=== PATIENT | female | born 1965 | race Caucasian/White ===

== ENCOUNTER 2016-10-14 09:47 | Emergency (ER) | payer OTHER ==
--- NOTE | 2016-10-14 12:45 | ED NURSING NOTES ---
Clinical Report - Nurses [facility] [address] [place] [address] 10/14/2016 9:48 [id number] TRIAGE Triage time 09:50. Acuity: LEVEL 3. Chief Complaint: CHEST DISCOMFORT and ("vibrations in my chest that go down to my abdomen" and palpations.). Alert. No acute distress. SEPSIS SCREEN: Sepsis Screen. Negative (no infection suspected/documented). FABIAN COMA SCORE: [place] Coma Scale: 15- eyes open spontaneously (4); best verbal response- oriented x 4 (5); best motor response- obeys commands (6). --10:29 Kathryn Birmingham R.N. 09:50 10/14/16. BP: 183/88. HR: 93. RR: 16. O2 saturation: 100%. Temp: 97.8 F. Pain level now 0/10. --10:29 Kathryn Birmingham R.N. Weight: 72.5 kg stated. Height/Length: 61 inches Per Patient. BMI: 30.2. --10:29 Kathryn Birmingham R.N. Medications None. --10:28 Kathryn Birmingham R.N. Allergies Cipro. --10:28 Kathryn Birmingham R.N. Sulfa Antibiotics. --10:28 Kathryn Birmingham R.N. Bactrim. --10:28 Kathryn Birmingham R.N. History Arrived by EMS. Historian: patient. Unaccompanied. Primary physician (Dr. Diaz). This is a recurrent problem and onset was gradual. (a couple weeks the "vibrations started."). ( Pt. is very tearful during triage. She states, "Dr. Diaz said I have been having near syncopy which started when I was with my son."Pt. said her son is 35 y.o. Pt. was concerned today because she was feeling weak and dizzy. Pt. continues to discuss she is under a lot of stress lately.). Treatment HEAD CASHIER: None. PAST MEDICAL HX: Immunizations: up-to-date. SOCIAL HX: Never smoker. Occasional alcohol use. No drug use. ABUSE ASSESSMENT: Abuse assessment: The patient was asked "Do you feel safe in your home?" and "Has anyone hurt you or threatened to hurt you?". No report of abuse. SELF HARM ASSESSMENT: A self harm assessment was performed. The patient answered "no" to the question "Do you have thoughts of harming or killing yourself?" and "Have you recently had thoughts about harming or killing others?". NUTRITIONAL RISK ASSESSMENT: The nutritional risk assessment revealed no deficiencies. FUNCTIONAL ASSESSMENT: Functional assessment: no impairments noted. LEARNING NEEDS ASSESSMENT: The learning needs assessment revealed no barriers. --10:29 Kathryn Birmingham R.N. PROBLEMS: Panic Attack. Anxiety Reaction. Near Syncope. Headache. Migraine Headache. --10:28 Kathryn Birmingham R.N. Interventions ID band on patient. Transported via stretcher. --10:29 Kathryn Birmingham R.N. PHYSICAL ASSESSMENT 09:50. To room via stretcher. GENERAL / NEURO / PSYCH: Alert. Oriented X 4. (pt. is very tearful and appears anxious.). HEENT: Mucous membranes are pink. RESPIRATORY: Respirations not labored. CVS: Pulses within normal limits. Capillary refill less than 2 seconds. GI / : Abdomen soft and nontender. EXTREMITIES: No lower extremity edema. SKIN: Skin is warm and dry. Skin is non-tender. --10:11 Kathryn Birmingham R.N. NURSING PROGRESS NOTES 09:50. Pulse oximeter placed on patient; cardiac care nurse- Lead II; monitor alarms on. Patient gowned. Head of bed elevated. Two patient identifiers checked. Call light placed in reach. Side rails up x 2. Bed placed in lowest position. Brakes of bed on. Patient ready for evaluation- chart flagged. --10:12 Kathryn Birmingham R.N. 09:50 10/14/2016 Site #1 started via IV in the right antecubital space with an 20g angiocath, with aseptic technique and good blood return; one attempt. Blood drawn: rainbow set. Labeled in the presence of the patient and sent to the lab. Saline lock flushed with 10 mL saline. --10:18 Kathryn Birmingham R.N. 10:19 10/14/2016 Lorazepam (LORazepam) IVP 0.5 mg given over 2 minute(s) via site #1. Allergies verified, confirmed 5 rights and sedative warning given to the patient. IV patency established. IV site checked: no pain, redness, or swelling. IV flushed thoroughly pre- and post-medication administration. --10:21 Kathryn Birmingham R.N. 11:41 10/14/16. BP: 124/75. HR: 81. RR: 16. O2 saturation: 100%. --11:41 Kathryn Birmingham R.N. 12:24 10/14/16. Patient ID band checked for patient name: patient confirmed. Instructions provided to collect clean catch urine and patient verbalized understanding. Clean catch urine collected with return of yellow-colored clear urine; sample sent to lab for urinalysis and culture. Specimen labeled in the presence of the patient. --12:24 Anny Martin R.N. 12:26 10/14/16. BP: 136/87. HR: 79. RR: 18. O2 saturation: 99% on room air. --12:26 Anny Martin R.N. DISPOSITION / DISCHARGE 13:38 10/14/2016 Site #1 removed upon discharge. Catheter intact. Manual pressure and bandaid applied. --13:38 Kathryn Birmingham R.N. 13:37 10/14/16. BP: 125/77. HR: 74. RR: 16. O2 saturation: 100%. Temp: 98.3 F. Pain level now 06/20. --13:38 Kathryn Birmingham R.N. 13:38. Condition at departure: stable. No learning barriers present. Discharge instructions provided and reviewed with the patient. Reviewed referral to family practice for followup. Patient verbalized understanding. Written instructions provided in Afghan. The patient was discharged home and accompanied by family. She left the Emergency Department ambulatory and via private vehicle. Family member driving. Medication list reviewed and validated. --13:38 Kathryn Birmingham R.N. Departure time: 13:38. --13:38 Kathryn Birmingham R.N. Locked/Released at 10/14/2016 15:28 by Kathryn Birmingham R.N.
--- NOTE | 2016-10-14 12:45 | ED NURSING NOTES ---
Clinical Report - Nurses [facility] [address] [place] [address] 10/14/2016 9:48 [id number] TRI[facility] Triage time 09:50. Acuity: LEVEL 3. Chief Complaint: CHEST DISCOMFORT and ("vibrations in my chest that go down to my abdomen" and palpations.). Alert. No acute distress. SEPSIS SCREEN: Sepsis Screen. Negative (no infection suspected/documented). FABIAN COMA SCORE: [place] Coma Scale: 15- eyes open spontaneously (4); best verbal response- oriented x 4 (5); best motor response- obeys commands (6). --10:29 Kathryn Birmingham R.N. 09:50 10/14/16. BP: 183/88. HR: 93. RR: 16. O2 saturation: 100%. Temp: 97.8 F. Pain level now 0/10. --10:29 Kathryn Birmingham R.N. Weight: 72.5 kg stated. Height/Length: 61 inches Per Patient. BMI: 30.2. --10:29 Kathryn Birmingham R.N. Medications None. --10:28 Kathryn Birmingham R.N. Allergies Cipro. --10:28 Kathryn Birmingham R.N. Sulfa Antibiotics. --10:28 Kathryn Birmingham R.N. Bactrim. --10:28 Kathryn Birmingham R.N. History Arrived by EMS. Historian: patient. Unaccompanied. Primary physician (Dr. Diaz). This is a recurrent problem and onset was gradual. (a couple weeks the "vibrations started."). ( Pt. is very tearful during triage. She states, "Dr. Diaz said I have been having near syncopy which started when I was with my son."Pt. said her son is 35 y.o. Pt. was concerned today because she was feeling weak and dizzy. Pt. continues to discuss she is under a lot of stress lately.). Treatment HOME APPLIANCE TECHNICIAN: None. PAST MEDICAL HX: Immunizations: up-to-date. SOCIAL HX: Never smoker. Occasional alcohol use. No drug use. ABUSE ASSESSMENT: Abuse assessment: The patient was asked "Do you feel safe in your home?" and "Has anyone hurt you or threatened to hurt you?". No report of abuse. SELF HARM ASSESSMENT: A self harm assessment was performed. The patient answered "no" to the question "Do you have thoughts of harming or killing yourself?" and "Have you recently had thoughts about harming or killing others?". NUTRITIONAL RISK ASSESSMENT: The nutritional risk assessment revealed no deficiencies. FUNCTIONAL ASSESSMENT: Functional assessment: no impairments noted. LEARNING NEEDS ASSESSMENT: The learning needs assessment revealed no barriers. --10:29 Kathryn Birmingham R.N. PROBLEMS: Panic Attack. Anxiety Reaction. Near Syncope. Headache. Migraine Headache. --10:28 Kathryn Birmingham R.N. Interventions ID band on patient. Transported via stretcher. --10:29 Kathryn Birmingham R.N. PHYSICAL ASSESSMENT 09:50. To room via stretcher. GENERAL / NEURO / PSYCH: Alert. Oriented X 4. (pt. is very tearful and appears anxious.). HEENT: Mucous membranes are pink. RESPIRATORY: Respirations not labored. CVS: Pulses within normal limits. Capillary refill less than 2 seconds. GI / : Abdomen soft and nontender. EXTREMITIES: No lower extremity edema. SKIN: Skin is warm and dry. Skin is non-tender. --10:11 Kathryn Birmingham R.N. NURSING PROGRESS NOTES 09:50. Pulse oximeter placed on patient; environmental monitoring technician- Lead II; monitor alarms on. Patient gowned. Head of bed elevated. Two patient identifiers checked. Call light placed in reach. Side rails up x 2. Bed placed in lowest position. Brakes of bed on. Patient ready for evaluation- chart flagged. --10:12 Kathryn Birmingham R.N. 09:50 10/14/2016 Site #1 started via IV in the right antecubital space with an 20g angiocath, with aseptic technique and good blood return; one attempt. Blood drawn: rainbow set. Labeled in the presence of the patient and sent to the lab. Saline lock flushed with 10 mL saline. --10:18 Kathryn Birmingham R.N. 10:19 10/14/2016 Lorazepam (LORazepam) IVP 0.5 mg given over 2 minute(s) via site #1. Allergies verified, confirmed 5 rights and sedative warning given to the patient. IV patency established. IV site checked: no pain, redness, or swelling. IV flushed thoroughly pre- and post-medication administration. --10:21 Kathryn Birmingham R.N. 11:41 10/14/16. BP: 124/75. HR: 81. RR: 16. O2 saturation: 100%. --11:41 Kathryn Birmingham R.N. 12:24 10/14/16. Patient ID band checked for patient name: patient confirmed. Instructions provided to collect clean catch urine and patient verbalized understanding. Clean catch urine collected with return of yellow-colored clear urine; sample sent to lab for urinalysis and culture. Specimen labeled in the presence of the patient. --12:24 Anny Martin R.N. 12:26 10/14/16. BP: 136/87. HR: 79. RR: 18. O2 saturation: 99% on room air. --12:26 Anny Martin R.N. DISPOSITION / DISCHARGE 13:38 10/14/2016 Site #1 removed upon discharge. Catheter intact. Manual pressure and bandaid applied. --13:38 Kathryn Birmingham R.N. 13:37 10/14/16. BP: 125/77. HR: 74. RR: 16. O2 saturation: 100%. Temp: 98.3 F. Pain level now 06/20. --13:38 Kathryn Birmingham R.N. 13:38. Condition at departure: stable. No learning barriers present. Discharge instructions provided and reviewed with the patient. Reviewed referral to family practice for followup. Patient verbalized understanding. Written instructions provided in Polish. The patient was discharged home and accompanied by family. She left the Emergency Department ambulatory and via private vehicle. Family member driving. Medication list reviewed and validated. --13:38 Kathryn Birmingham R.N. Departure time: 13:38. --13:38 Kathryn Birmingham R.N. Locked/Released at 10/14/2016 15:28 by Kathryn Birmingham R.N.
--- NOTE | 2016-10-14 12:45 | ED CLINICAL REPORT ---
Clinical Report - Physicians/Mid Levels [facility] [address] [place] [address] 10/14/2016 9:48 Patient: JAMAL GUERIN Time Seen: 09:54. Arrived- By private vehicle. Historian- patient. HISTORY OF PRESENT ILLNESS Chief Complaint: WEAKNESS. At its maximum, severity described as mild. When seen in the E.D., it was gone. (A strange weak all over feeling, cold and clammy. Blood pressure spikes - 160 Several weeks - randomly a a pulsation through abdomen for 2 heart beats. Vibration - for a long time. years, high frequency - in the the chest). Onset during emotional upset. It is described as located in the central chest area. No nausea, vomiting, difficulty breathing or diaphoresis. Similar symptoms previously: Many times. Recent medical care: The patient was seen recently by a health care provider. ( 1 month - similar. Beta Blockers didn't take.). REVIEW OF SYSTEMS No fever, chills, cough, pedal edema or calf pain. No abdominal pain, black stools, difficulty with urination, skin rash or joint pain. No bloody stools. PAST HISTORY PCP: Emily Ops: None Hosp: - pain fibroids Illness: Neg. Environmental allergies. PROBLEMS: Panic Attack. Anxiety Reaction. Near Syncope. Headache. Migraine Headache. SOCIAL HISTORY Never smoker. Marital stress - severe. ADDITIONAL NOTES The nursing notes have been reviewed. PHYSICAL EXAM Appearance: Alert. Anxious. Patient in moderate distress. Eyes: Pupils equal, round and reactive to light. Eyes normal inspection. ENT: Pharynx normal. Neck: Normal inspection. Neck supple. CVS: Normal heart rate and rhythm. Heart sounds normal. Respiratory: No respiratory distress. Breath sounds normal. Chest nontender. Abdomen: Soft and nontender. Bowel sounds normal. Back: Normal external inspection. Skin: Skin warm. Normal skin color. No rash. Extremities: Extremities exhibit normal ROM. Neuro: Oriented X 3. No motor deficit. No sensory deficit. LABS, X-RAYS, AND EKG EKG: Normal EKG. Laboratory Tests: CBC w Diff: (WILMA: 10/14/2016 09:50) ( [facility]14[facility] 10:30) Final results Test Result Flag Units (Reference) WHITE BLOOD COUNT 9.0 K/uL (4.5-11.5) RED BLOOD COUNT 4.78 M/uL (4.00-5.20) HEMOGLOBIN 14.6 gm/dL (12.0-16.0) HEMATOCRIT 43.3 % (36.0-46.0) MEAN CELL VOLUME 91 fL (80-100) MEAN CORPUSCULAR HGB 31 pg (26-34) MEAN CORPUSCULAR HGB CONC 34 g/dL (31-37) RED CELL DISTRIBUTION WIDTH 14.0 % (11.6-14.8) PLATELET COUNT 292 K/uL (150-400) NEUTROPHIL % 54.3 % (50-75) LYMPH % 34.3 % (25-40) MONO % 7.8 % (3-14) EOSINOPHIL % 2.7 % (0-4) BASOPHIL % 0.9 % (0-2) CHEM 13 PANEL: (WILMA: 10/14/2016 09:50) ( [facility] 10/14/2016 10:39) Final results Test Result Flag Units (Reference) GLUCOSE 101 mg/dL (70-110) BUN 17 mg/dL (7-18) CREATININE 0.8 mg/dL (0.6-1.3) Estimated GFR >60 mL/min Estimated GFR- >60 mL/min Note: Persistent reduction over 3 months in eGFR<60 mL/min/1.73 m2 defines CKD. Patients with eGFR values>=60 mL/min/1.73 m2 may also have CKD if evidence ofpersistent proteinuria. Additional information may be foundat www.kidney.org. SODIUM 142 mmol/L (136-145) POTASSIUM 3.6 mmol/L (3.5-5.1) CHLORIDE 103 mmol/L (98-107) CARBON DIOXIDE 25 mmol/L (21-32) CALCIUM 8.9 mg/dL (8.5-10.1) TOTAL PROTEIN 7.7 g/dL (6.4-8.2) ALBUMIN 4.0 g/dL (3.3-5.0) BILIRUBIN, TOTAL 0.9 mg/dL (0.0-1.0) ALKALINE PHOSPHATASE 89 U/L (46-116) AST (SGOT) 21 U/L (15-37) ALT (SGPT) 28 U/L (12-78) MAGNESIUM 2.2 mg/dL (1.8-2.4) CPK 110 U/L (24-260) TROPONIN I 0.07 ng/mL (0.00-1.5) TROPONIN REFERENCE RANGE:<0.1 NEGATIVE0.1-1.5 INDETERMINANT>1.5 POSITIVE . PROGRESS AND PROCEDURES Course of Care: 12:21 10/14/16. Labs are negative 12:36 10/14/16. Interview again Ms Guerin has severe anxiety along with chest and abdominal symptoms which do not appear to be life threatening. She has longstanding marital conflict which causes her great anguish. I think the most productive way forward would be to address the anxiety and depression along with the marital distress and then see what other symptoms remain. Disposition: Discharged. Condition: stable. CLINICAL IMPRESSION Anxiety reaction. WEAKNESS ABDOMINAL PAIN. INSTRUCTIONS (I DO NOT THINK YOU ARE HAVING A SERIOUS PROBLEM IN YOUR CHEST AND ABDOMEN. YOUR STRESS IS CONSIDERABLE. WORK WITH DR DOMINGUEZ ABOUT ANXIETY AND DEPRESSION.). Follow-up: Follow up with your doctor. Understanding of the discharge instructions verbalized by patient. (Electronically signed by Lj Winkler MD 10/17/2016 7:32)
--- NOTE | 2016-10-14 12:45 | ED ORDER SUMMARY ---
..... Patient: JAMAL COLLINS OrderSheet [facility] VisitID: [id number] [address] [place] [address] 51y, F Registration Date/Time: 10/14/2016 ORDER SHEET Weight: 72.5 kg (stated) Allergies: Cipro, Sulfa Antibiotics, Bactrim GENERAL ORDERS: Bulk Clerk (Continuous) (10:10/14/2016 Herbert TORRE) (10:13 Jorge R.N.) Cardiac Panel Stat (10:10/14/2016 Herbert TORRE) (Ack 10:29 Luis) (10:35 Jorge R.N.) EKG - ER Stat (10:10/14/2016 Herbert TORRE) (10:12 Jorge R.N.) Pulse oximeter (10:10/14/2016 Herbert TORRE) (10:12 Jorge R.N.) Oxygen (2 L/min) (NC) (10:10/14/2016 Herbert TORRE) (10:12 Jorge R.N.) MEDICATION ORDERS: IV FLUIDS: LORazepam IV 0.5 mg (NOW) (10:11 10/14/2016 Herbert TORRE) (Ack 10:12 Heavenitz R.N.) (10:21 Jorge R.N.) IV Saline Lock (10:10/14/2016 Herbert TORRE) (Ack 10:12 Jorge R.N.) (10:18 Heavenitz R.N.) ORDER SHEET NOTES: [Electronically signed by Kathryn Birmingham R.N. (15:28 10/14/2016)] [Electronically signed by Lj Winkler MD (07:32 10/17/2016)] [Electronically locked/signed by Kathryn Birmingham R.N. (15:28 10/14/2016)]
--- NOTE | 2016-10-14 12:45 | ED ORDER SUMMARY ---
..... Patient: JAMAL COLLINS OrderSheet [facility] VisitID: [id number] [address] [place] [address] 51y, F Registration Date/Time: 10/14/2016 ORDER SHEET Weight: 72.5 kg (stated) Allergies: Cipro, Sulfa Antibiotics, Bactrim GENERAL ORDERS: Structurer (Continuous) (10:10/14/2016 Herbert TORRE) (10:13 Jorge R.N.) Cardiac Panel Stat (10:10/14/2016 Herbert TORRE) (Ack 10:29 Luis) (10:35 Jorge R.N.) EKG - ER Stat (10:10/14/2016 Herbert TORRE) (10:12 Jorge R.N.) Pulse oximeter (10:10/14/2016 Herbert TORRE) (10:12 Jorge R.N.) Oxygen (2 L/min) (NC) (10:10/14/2016 Herbert TORRE) (10:12 Jorge R.N.) MEDICATION ORDERS: IV FLUIDS: LORazepam IV 0.5 mg (NOW) (10:11 10/14/2016 Herbert TORRE) (Ack 10:12 Heavenitz R.N.) (10:21 Jorge R.N.) IV Saline Lock (10:10/14/2016 Herbert TORRE) (Ack 10:12 Jorge R.N.) (10:18 Heavenitz R.N.) ORDER SHEET NOTES: [Electronically signed by Kathryn Birmingham R.N. (15:28 10/14/2016)] [Electronically signed by Lj Winkler MD (07:32 10/17/2016)] [Electronically locked/signed by Kathryn Birmingham R.N. (15:28 10/14/2016)]
--- NOTE | 2016-10-17 07:32 | ED DISCHARGE INSTRUCTIONS ---
Patient: JAMAL COLLINS General Instructions [facility] VisitID: [id number] [address] [place] [address] 51y, F Registration Date/Time: 10/14/2016 Anxiety reaction. WEAKNESS ABDOMINAL PAIN. INSTRUCTIONS (I DO NOT THINK YOU ARE HAVING A SERIOUS PROBLEM IN YOUR CHEST AND ABDOMEN. YOUR STRESS IS CONSIDERABLE. WORK WITH DR DOMINGUEZ ABOUT ANXIETY AND DEPRESSION.). Follow-up: Follow up with your doctor. Understanding of the discharge instructions verbalized by patient. ADDITIONAL INFORMATION Stress Reaction Anxiety is the feeling we all get when we think something bad might happen. It is a normal response to stress and usually causes only a mild reaction. When anxiety becomes more severe, emotions may interfere with daily life. In some cases, you may not even be aware of what it is youre anxious about! During an anxiety reaction, you may feel like you are helpless, nervous, depressed or irritable. Your body may show signs of anxiety in many ways. You may experience dry mouth, shakiness, dizziness, weakness, trouble breathing, chest pressure, headache, nausea, diarrhea, tiredness, inability to sleep or sexual problems. Home Care: 1) Try to locate the sources of stress in your life. They may not be obvious! These may include: -- Daily hassles of life which pile up (traffic jams, missed appointments, car troubles, etc.) -- Major life changes, both good (new baby, job promotion) and bad (loss of job, loss of loved one) -- Overload: feeling that you have too many responsibilities and can't take care of all of them at once -- Feeling helpless, feeling that your problems are beyond what youre able to solve 2) Notice how your body reacts to stress. Learn to listen to your body signals. This will help you take action before the stress becomes severe. 3) When you can, do something about the source of your stress. (Avoid hassles, limit the amount of change that happens in your life at one time and take a break when you feel overloaded). 4) Unfortunately, many stressful situations cannot be avoided. It is necessary to learn HOW TO MANAGE STRESS better. There are many proven methods that will reduce your anxiety. These include simple things like exercise, good nutrition and adequate rest. Also, there are certain techniques that are helpful: relaxation and breathing exercises, visualization, biofeedback and meditation. For more information about this, consult your doctor or go to a local bookstore and review the many books and tapes available on this subject. Follow Up If you feel that your anxiety is not responding to self-help measures, contact your doctor or make an appointment with a counselor. Get Prompt Medical Attention if any of the following occur: -- Your symptoms get worse -- Chest pain or trouble breathing -- Severe headache not relieved by rest and mild pain reliever -- Rapid or irregular heartbeat, fainting You have been given the following additional information: Anxiety Reaction (Electronically signed by Lj Winkler MD 10/17/2016 7:32)
--- NOTE | 2016-10-17 07:32 | ED MAR SUMMARY ---
..... Medication Administration Record [facility] [address] [place] [address] Patient: JAMAL COLLINS Visit ID: [id number] 51y, F Weight: 72.5 kg Height/Length: 61 in BMI: 30.2 ALLERGIES: Bactrim, Sulfa Antibiotics, Cipro Given 10:19 10/14/2016 Kathryn Birmingham R.N. Medication Administered: LORAZEPAM [IVP] (LORAZEPAM), Dose: 0.5 mg IVP over 2 minute(s), Site: #1 right AC. Medication Ordered: LORazepam IV 0.5 mg (NOW).
--- NOTE | 2016-10-17 07:32 | ED MED RECONCILIATION SUMMARY ---
Patient: JAMAL COLLINS Medication Reconciliation Report [facility] VisitID: [id number] [address] [place] [address] 51y, F Registration Date/Time: 10/14/2016 Weight: 72.5 kg Height/Length: 61 in. BMI: 30.2 ALLERGIES: Bactrim, Cipro, Sulfa Antibiotics The patient's Home Medications are listed below: NONE. The source(s) of the original Home Medication information: Not obtained. The following Medications were given to the patient in the Emergency Department: Lorazepam [IVP] IVP 0.5 mg, administered: 10/14/2016 10:19:00 AM The following Medications were prescribed to the patient: None.
--- NOTE | 2016-10-17 07:32 | ED MAR SUMMARY ---
..... Medication Administration Record [facility] [address] [place] [address] Patient: JAMAL COLLINS Visit ID: [id number] 51y, F Weight: 72.5 kg Height/Length: 61 in BMI: 30.2 ALLERGIES: Bactrim, Sulfa Antibiotics, Cipro Given 10:19 10/14/2016 Kathryn Birmingham R.N. Medication Administered: LORAZEPAM [IVP] (LORAZEPAM), Dose: 0.5 mg IVP over 2 minute(s), Site: #1 right AC. Medication Ordered: LORazepam IV 0.5 mg (NOW).
--- NOTE | 2016-10-17 07:32 | ED MED RECONCILIATION SUMMARY ---
Patient: JAMAL COLLINS Medication Reconciliation Report [facility] VisitID: [id number] [address] [place] [address] 51y, F Registration Date/Time: 10/14/2016 Weight: 72.5 kg Height/Length: 61 in. BMI: 30.2 ALLERGIES: Bactrim, Cipro, Sulfa Antibiotics The patient's Home Medications are listed below: NONE. The source(s) of the original Home Medication information: Not obtained. The following Medications were given to the patient in the Emergency Department: Lorazepam [IVP] IVP 0.5 mg, administered: 10/14/2016 10:19:00 AM The following Medications were prescribed to the patient: None.
== END 2016-10-14 13:38 | disposition home or self-care (01) ==
LOC: ED SRH 09:47
DX: F41.1 Generalized anxiety disorder (principal); R10.9 Unspecified abdominal pain; R53.1 Weakness
CPT/HCPCS: 90100; 90616; 92610; 92720; 95059

== ENCOUNTER 2016-10-22 19:41 | Emergency (ER) | payer OTHER ==
--- NOTE | 2016-10-22 20:22 | DIAGNOSTIC IMAGING REPORT ---
PROCEDURE: XR CHEST 1 VIEW INDICATION: Compared to chest x-ray on 10/16/2013. TECHNIQUE: Portable AP view (201 5 hours). COMPARISON: None. FINDINGS: Allowing for overlying wires and electrodes, lungs are clear. Heart and mediastinum are normal. Thorax is normal. IMPRESSION: 1. Negative chest.
--- NOTE | 2016-10-22 23:40 | ED CLINICAL REPORT ---
Clinical Report - Physicians/Mid Levels [facility] [address] [place] [address] 10/22/2016 19:41 Patient: JAMAL COLLINS Time Seen: 20:02 Oct 22 2016. Arrived- By private vehicle. Historian- patient. HISTORY OF PRESENT ILLNESS Chief Complaint: PALPITATIONS and CHEST DISCOMFORT. It is described as . she complains of dizziness and weakness. Modifying factors. Not worsened by anything. Not relieved by anything. 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 History of caffeine use prior to onset. The patient has had central chest pain described as lasting seconds and associated with diaphoresis. She has had chest discomfort. Similar symptoms previously: Several times, as bad (on and off for 2 weeks.). Recent medical care: Not recently seen/assessed. REVIEW OF SYSTEMS No fever, chills, cough, orthopnea or calf pain. No enlarged lymph nodes, sore throat or nausea. She has had moderate abdominal pain (occasional epigastric with dysphagia 2 weeks ago.). The pain is described as located in the epigastrium. All systems otherwise negative, except as recorded above. PAST HISTORY Panic Attack. Anxiety Reaction. Near Syncope. Headache. Migraine Headache. Gastroesophageal reflux. Additional Surgeries: no known surgeries. Medications: Vitamin c Oral. Vitamin D-Vitamin K Oral. Vitamin E Complete Oral. Multivitamin Oral. Co Q 10 Oral. Allergies: Cipro. ("messed up my tendons" ) Sulfa Antibiotics. (rash). SOCIAL HISTORY Never smoker. Occasional alcohol use. No drug use. ADDITIONAL NOTES The nursing notes have been reviewed. PHYSICAL EXAM Vital Signs: 10/22/2016 19:45 BP: 178/91. HR: 100. RR: 22. O2 saturation: 100%. Temp: 98.1 F. Pain level now: 0/10. Appearance: Alert. Anxious. (non-toxic.). Eyes: Eyes normal inspection. ENT: Pharynx normal. Neck: Normal inspection. Neck supple. No JVD. CVS: Normal heart rate and rhythm. Heart sounds normal. Pulses normal. No cardiac murmur. Respiratory: No respiratory distress. Breath sounds normal. Chest nontender. Abdomen: Soft and nontender. Bowel sounds normal. Back: Normal external inspection. Skin: Skin warm. Normal skin color. No rash. Extremities: Extremities exhibit normal ROM. No calf tenderness. No lower extremity edema. Neuro: Oriented X 3. No motor deficit. No sensory deficit. Reflexes normal. LABS, X-RAYS, AND EKG EKG: No acute process. No acute ischemia. Normal EKG. Normal sinus rhythm. Rate: 87. Normal P waves. Normal GABRIEL. Normal QRS complex. Normal axis. Normal ST and T waves, QT and QTc. Prior EKG unavailable. The study has been interpreted contemporaneously by me. The study has been independently viewed by me. The EKG appears to be a good tracing. Chest X-ray: (PROCEDURE: XR CHEST 1 VIEW INDICATION: Compared to chest x-ray on 10/16/2013. TECHNIQUE: Portable AP view (201 5 hours). COMPARISON: None. FINDINGS: Allowing for overlying wires and electrodes, lungs are clear. Heart and mediastinum are normal. Thorax is normal. IMPRESSION: 1. Negative chest.). Views: AP (portable). The X-rays were independently viewed by me and interpreted by the radiologist. The X-rays were discussed with the radiologist (via pacs). Laboratory Tests: CBC w Diff: (WILMA: 10/22/2016 20:00) ( MsgRcvd 10/22/2016 20:29) Final results Test Result Flag Units (Reference) WHITE BLOOD COUNT 12.6 H K/uL (4.5-11.5) RED BLOOD COUNT 4.81 M/uL (4.00-5.20) HEMOGLOBIN 14.6 gm/dL (12.0-16.0) HEMATOCRIT 43.7 % (36.0-46.0) MEAN CELL VOLUME 91 fL (80-100) MEAN CORPUSCULAR HGB 30 pg (26-34) MEAN CORPUSCULAR HGB CONC 33 g/dL (31-37) RED CELL DISTRIBUTION WIDTH 13.8 % (11.6-14.8) PLATELET COUNT 319 K/uL (150-400) NEUTROPHIL % 62.6 % (50-75) LYMPH % 27.1 % (25-40) MONO % 8.2 % (3-14) EOSINOPHIL % 1.7 % (0-4) BASOPHIL % 0.4 % (0-2) TSH: (WILMA: 10/22/2016 20:00) ( [facility] 10/22/2016 21:30) Final results Test Result Flag Units (Reference) THYROID STIMULATING HORMONE 3.656 uIU/mL (0.34-3.74) CHEM 13 PANEL: (WILMA: 10/22/2016 20:00) ( ScgRcvd 10/22/2016 20:49) Final results Test Result Flag Units (Reference) GLUCOSE 93 mg/dL (70-110) BUN 21 H mg/dL (7-18) CREATININE 0.9 mg/dL (0.6-1.3) Estimated GFR >60 mL/min Estimated GFR- >60 mL/min Note: Persistent reduction over 3 months in eGFR<60 mL/min/1.73 m2 defines CKD. Patients with eGFR values>=60 mL/min/1.73 m2 may also have CKD if evidence ofpersistent proteinuria. Additional information may be foundat www.[email or web address].org. SODIUM 145 mmol/L (136-145) POTASSIUM 3.5 mmol/L (3.5-5.1) CHLORIDE 106 mmol/L (98-107) CARBON DIOXIDE 27 mmol/L (21-32) CALCIUM 8.9 mg/dL (8.5-10.1) TOTAL PROTEIN 8.0 g/dL (6.4-8.2) ALBUMIN 4.2 g/dL (3.3-5.0) BILIRUBIN, TOTAL 0.5 mg/dL (0.0-1.0) ALKALINE PHOSPHATASE 96 U/L (46-116) AST (SGOT) 17 U/L (15-37) ALT (SGPT) 28 U/L (12-78) MAGNESIUM 2.4 mg/dL (1.8-2.4) CPK 126 U/L (24-260) TROPONIN I <0.05 L ng/mL (0.00-1.5) TROPONIN REFERENCE RANGE:<0.1 NEGATIVE0.1-1.5 INDETERMINANT>1.5 POSITIVE . PROGRESS AND PROCEDURES Course of Care: Anxiety may be a component to her symptoms. Xanax 0.5 mg po the patient is a pleasant 51-year-old female presented for evaluation of chest pain and anxiety Reaction. Patient is noted to be low risk on the bower criteria. Patient was initially evaluated by the outgoing physician at the change of shift. I have taken over the patient's care at the change of shift. No acute abdomen maladies noted on patient's workup thus far. Past follow-up with patient's laboratory studies and disposition. I have introduced myself to be patient and perform an independent physical examination. Agree with the prior physician's assessment and plan. The patient is noted to have a negative troponin. Patient is also noted to be at low risk given the well's criteria for pulmonary embolism. do not feel further workup or imaging required for a vaginal pulmonary embolism given patient's low risk. Symptoms significantly improved while here in the emergency department. Because the patient's negative workup here in the emergency department, do not feel patient needs bon. Patient is a otherwise at low risk for acute myocardial infarction however patient was encouraged to follow up with cardiology in regards to further risk stratification and evaluation of her chest pain. Patient states that she does have a scheduled appointment for a Holter monitor. Patient was encouraged to continue with this evaluation. Discussed the patient workup here in the emergency department including diagnosis, home care, follow-up, and return precautions. All questions have been answered. The patient expressed understanding of these instructions and was agreeable to them. CLINICAL IMPRESSION Chest pain characterized as "discomfort" .12 lead EKG performed. 10/22/2016 23:00 BP: 116/58. HR: 68. RR: 18. O2 saturation: 97%. Pain level now: 2/10. Blood pressure normal. Oxygen saturation normal. Anxiety reaction (acute). INSTRUCTIONS Warnings: SEDATIVE MEDICATION: You were given sedative medication during your visit. Do not drive or operate dangerous machinery. CONTROLLED SUBSTANCE WARNINGS. GENERAL WARNINGS: Return or contact your physician immediately if your condition worsens or changes unexpectedly, if not improving as expected, or if other problems arise. SPECIFICALLY, return if you develop chest, neck, jaw, shoulder, arm, or back pain, difficulty breathing, a fluttering sensation in your chest, lightheadedness, fainting, excessive fatigue, or sudden sweating. Your Current Medications: CONTINUE TAKING THE FOLLOWING MEDICATIONS: Co Q 10 Oral. Multivitamin Oral. Vitamin c Oral. Vitamin D-Vitamin K Oral. Vitamin E Complete Oral. Prescription Medications: Ativan 0.5 mg: take 1 orally every 8 hours as needed for anxiety. Dispense ten (10). No refill. Substitution is permissible. Follow-up: Return to the emergency department as needed. Follow up with your doctor in three days. Reason for referral: recheck today's concerns. Summary of care provided to patient via paper. Follow up with your doctor. Screening today revealed the patient's blood pressure to be in the normal range. The patient should follow up with a primary care provider for blood pressure management. Understanding of the discharge instructions verbalized by patient. Follow-up with: Lj Sherman MD, Cardiology, , [facility] - Cardiology, [address] [place] [address] Follow up in three days. Reason for referral: recheck today's concerns. Summary of care provided to patient via paper. (Electronically signed by Pedro Pablo Anne Dr. 10/23/2016 5:52)
--- NOTE | 2016-10-22 23:40 | ED ORDER SUMMARY ---
..... Patient: JAMAL COLLINS OrderSheet [facility] VisitID: [id number] [address] [place] [address] 51y, F Registration Date/Time: 10/22/2016 ORDER SHEET Weight: 72.5 kg (stated) Allergies: Cipro, Sulfa Antibiotics GENERAL ORDERS: Bar Turner (Continuous) (19:56 10/22/2016 DDean R.N. per protocol) (19:57 DDean R.N.) Chest 1V Urgent (19:57 10/22/2016 DDean R.N. per protocol) (Ack 20:02 CHagerty ER Afterschool Babysitter) (20:14 DDean R.N.) Oxygen (2 L/min) (NC) (19:57 10/22/2016 DDean R.N. per protocol) (19:57 DDean R.N.) Pulse oximeter (19:57 10/22/2016 DDean R.N. per protocol) (19:57 DDean R.N.) EKG - ER Stat (19:57 10/22/2016 DDean R.N. per protocol) (Ack 20:02 CHagerty ER Afterschool Babysitter) (20:50 CHagerty ER Afterschool Babysitter) Vitals (19:57 10/22/2016 DDean R.N. per protocol) (19:57 DDean R.N.) Cardiac Panel Stat (20:14 10/22/2016 DDean R.N. per protocol) (20:18 CHagerty ER Afterschool Babysitter) TSH Urgent (21:02 10/22/2016 Tresa TORRE) (21:03 CHagerty ER Afterschool Babysitter) MEDICATION ORDERS: Alprazolam PO 0.5 mg (NOW) (21:02 10/22/2016 Tresa TORRE) (Ack 21:04 DDean R.N.) (21:14 DDean R.N.) IV FLUIDS: IV Saline Lock (19:57 10/22/2016 DDean R.N. per protocol) (19:58 DDean R.N.) ORDER SHEET NOTES: [Electronically signed by Marielena Holbrook R.N. (23:56 10/22/2016)] [Electronically signed by Pedro Pablo Anne Dr[address] (05:52 10/23/2016)] [Electronically locked/signed by Marielena Holbrook R.N. (23:56 10/22/2016)]
--- NOTE | 2016-10-22 23:40 | ED NURSING NOTES ---
Clinical Report - Nurses [facility] [address] [place] [address] 10/22/2016 19:41 Patient: JAMAL COLLINS TRIAGE Triage time 1945. Acuity: LEVEL 3. Chief Complaint: CHEST PAIN and (FEELS LIKE SHE HAS HAD EPISODES OF RAPID HEART RATE, AND "PINGS" OF SHARP PAINS). --19:54 Radha Lancaster R.N. 19:45 10/22/16. BP: 178/91. HR: 100. RR: 22. O2 saturation: 100%. Temp: 98.1 F. Pain level now: 0/10. Additional comments: "just feel weird all over" . --19:54 Radha Lancaster R.N. Weight: 72.5 kg stated. Height/Length: 61.5 inches Per Patient. BMI: 29.7. --19:48 Radha Lancaster R.N. Medications Co Q 10 Oral. --19:52 Radha Lancaster R.N. Multivitamin Oral. --19:52 Radha Lancaster R.N. Vitamin c Oral. Vitamin D-Vitamin K Oral. Vitamin E Complete Oral. --19:53 Radha Lancaster R.N. Allergies Cipro. ("messed up my tendons" ) Sulfa Antibiotics. (rash) --19:52 Radha Lancaster R.N. History Arrived by private vehicle. Historian: patient. Accompanied by spouse. Primary physician (latasha). Onset. (8 days 1700). Reports experiencing sweating episodes. No difficulty breathing, nausea or vomiting. PAST MEDICAL HX: The patient is post-menopausal. SURGERY HX: No history of previous surgery. SOCIAL HX: Never smoker. Occasional alcohol use. No drug use. --19:54 Radha Lancaster R.N. ( pt also c/o feeling lightheaded). --19:55 Radha Lancaster R.N. ( states this seems to happen more when "getting ready to eat"). --20:00 Radha Lancaster R.N. PROBLEMS: Panic Attack. Anxiety Reaction. Near Syncope. Headache. Migraine Headache. --19:51 Radha Lancaster R.N. ADDITIONAL SURGERIES: no known surgeries. Interventions ID band on patient. To treatment room. --19:54 Radha Lancaster R.N. PHYSICAL ASSESSMENT 19:45. To room via wheelchair. Patient gowned. GENERAL / NEURO / PSYCH: Alert. Oriented X 4. Appears anxious. RESPIRATORY: Respirations not labored. Chest nontender. ( "feel weird all over"). CVS: Pulses within normal limits. Capillary refill less than 2 seconds. GI / : Abdomen soft. EXTREMITIES: No lower extremity edema. SKIN: Skin is warm and dry. --19:55 Radha Lancaster R.N. NURSING PROGRESS NOTES 19:45. Monitoring of patient in place; (NSR). Patient gowned. Head of bed elevated. Reassurance given. Patient identifiers checked. Call light placed in reach. Side rails up. Bed placed in lowest position. Patient ready for evaluation- chart flagged. --19:54 Radha Lancaster R.N. 19:56 10/22/2016 Site #1 started via IV in the left antecubital space with an 20g angiocath, with aseptic technique and good blood return; one attempt. Blood drawn: rainbow set. Labeled in the presence of the patient and sent to the lab. Saline lock flushed with 10 mL saline (by Ata Mtz EDRN). --19:56 Radha Lancaster R.N. 19:58 10/22/16. BP: 168/71. HR: 93. RR: 16. O2 saturation: 99% on room air. Temp: deferred. Pain level now: 0/10. --19:59 Radha Lancaster R.N. 20:13 10/22/16. Portable chest x-ray ordered, performed and shown to the ED physician. --20:13 Radha Lancaster R.N. EKG time: (2026). EKG was ordered, performed by a tech and shown to the ED physician. --20:27 Steve Vásquez, ER Application Development Consultant 21:09 10/22/2016 Alprazolam PO Tablets 0.5 mg given. Allergies verified, confirmed 5 rights and sedative warning given to the patient. --21:14 Radha Lancaster R.N. 21:10/22/16. BP: 127/74. HR: 84. RR: 18. O2 saturation: 98% on room air. Temp: deferred. Pain level now: 0/10. --21:16 Radha Lancaster R.N. 21:42 10/22/16. BP: 125/66. HR: 74. RR: 16. O2 saturation: 98% on room air. Temp: deferred. Pain level now: 0/10. Additional comments: pt is calmer and mroe relaxed. --21:43 Radha Lancaster R.N. 21:44 10/22/2016 Alprazolam PO Response: symptoms have improved the patient feels better. --21:44 Radha Lancaster R.N. 22:08 10/22/16. Care transferred and report given (Marielena Leigh, EDREduardo). --22:08 Radha Lancaster R.N. The patient reports no complaints and she is calm and resting quietly. Overall patient status is improved- she states feels better. RESPIRATORY: No respiratory distress. Breath sounds normal. SKIN: Skin is warm and dry. Skin color within normal limits. --23:12 Marielena Holbrook R.N. 23:00 10/22/16. BP: 116/58 taken on the left arm, while lying. HR: 68 (regular and normal rate). RR: 18. O2 saturation: 97% on room air. Temp: deferred. Pain level now: 2/10. --23:12 Marielena Holbrook R.N. DISPOSITION / DISCHARGE 23:50 10/22/2016 Site #1 removed upon discharge. Catheter intact. Manual pressure and bandage applied. --23:54 Marielena Holbrook R.N. 23:50 10/22/2016 IV Saline Lock Drip IV Discontinued: bag #1 upon discharge. Total amount infused: 0 mL. IV patency established. IV site checked: no pain, redness, or swelling. IV flushed thoroughly. --23:54 Marielena Holbrook R.N. Condition at departure: improved. No learning barriers present. Discharge instructions provided and reviewed with the patient. Reviewed medication(s) side effects, precautions, dosing and course information. Prescription(s) given to the patient. 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 Patient verbalized understanding. Written instructions provided in Georgian. No note given. The patient was discharged home and accompanied by spouse. She left the Emergency Department ambulatory and via private vehicle. Spouse driving. --23:56 Marielena Holbrook R.N. 23:50 10/22/16. BP: 113/68 taken on the left arm, while lying. HR: 64 (regular and normal rate). RR: 16 (regular and unlabored). O2 saturation: 98% on room air. Temp: deferred. Pain level now: 06/20. --23:56 Marielena Holbrook R.N. Departure time: 23:51. --23:56 Marielena Holbrook R.N. Locked/Released at 10/22/2016 23:56 by Marielena Holbrook R.N.
--- NOTE | 2016-10-22 23:40 | ED ORDER SUMMARY ---
..... Patient: JAMAL COLLINS OrderSheet [facility] VisitID: [id number] [address] [place] [address] 51y, F Registration Date/Time: 10/22/2016 ORDER SHEET Weight: 72.5 kg (stated) Allergies: Cipro, Sulfa Antibiotics GENERAL ORDERS: Heel Seat Filler (Continuous) (19:56 10/22/2016 DDean R.N. per protocol) (19:57 DDean R.N.) Chest 1V Urgent (19:57 10/22/2016 DDean R.N. per protocol) (Ack 20:02 CHagerty ER Leaf Conditioner) (20:14 DDean R.N.) Oxygen (2 L/min) (NC) (19:57 10/22/2016 DDean R.N. per protocol) (19:57 DDean R.N.) Pulse oximeter (19:57 10/22/2016 DDean R.N. per protocol) (19:57 DDean R.N.) EKG - ER Stat (19:57 10/22/2016 DDean R.N. per protocol) (Ack 20:02 CHagerty ER Leaf Conditioner) (20:50 CHagerty ER Leaf Conditioner) Vitals (19:57 10/22/2016 DDean R.N. per protocol) (19:57 DDean R.N.) Cardiac Panel Stat (20:14 10/22/2016 DDean R.N. per protocol) (20:18 CHagerty ER Leaf Conditioner) TSH Urgent (21:02 10/22/2016 Tresa TORRE) (21:03 CHagerty ER Leaf Conditioner) MEDICATION ORDERS: Alprazolam PO 0.5 mg (NOW) (21:02 10/22/2016 Tresa TORRE) (Ack 21:04 DDean R.N.) (21:14 DDean R.N.) IV FLUIDS: IV Saline Lock (19:57 10/22/2016 DDean R.N. per protocol) (19:58 DDean R.N.) ORDER SHEET NOTES: [Electronically signed by Marielena Holbrook R.N. (23:56 10/22/2016)] [Electronically signed by Pedro Pablo Anne Dr. (05:52 10/23/2016)] [Electronically locked/signed by Marielena Holbrook R.N. (23:56 10/22/2016)]
--- NOTE | 2016-10-22 23:40 | ED CLINICAL REPORT ---
Clinical Report - Physicians/Mid Levels [facility] [address] [place] [address] 10/22/2016 19:41 Patient: JAMAL COLLINS Time Seen: 20:02 Oct 22 2016. Arrived- By private vehicle. Historian- patient. HISTORY OF PRESENT ILLNESS Chief Complaint: PALPITATIONS and CHEST DISCOMFORT. It is described as . she complains of dizziness and weakness. Modifying factors. Not worsened by anything. Not relieved by anything. 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 History of caffeine use prior to onset. The patient has had central chest pain described as lasting seconds and associated with diaphoresis. She has had chest discomfort. Similar symptoms previously: Several times, as bad (on and off for 2 weeks.). Recent medical care: Not recently seen/assessed. REVIEW OF SYSTEMS No fever, chills, cough, orthopnea or calf pain. No enlarged lymph nodes, sore throat or nausea. She has had moderate abdominal pain (occasional epigastric with dysphagia 2 weeks ago.). The pain is described as located in the epigastrium. All systems otherwise negative, except as recorded above. PAST HISTORY Panic Attack. Anxiety Reaction. Near Syncope. Headache. Migraine Headache. Gastroesophageal reflux. Additional Surgeries: no known surgeries. Medications: Vitamin c Oral. Vitamin D-Vitamin K Oral. Vitamin E Complete Oral. Multivitamin Oral. Co Q 10 Oral. Allergies: Cipro. ("messed up my tendons" ) Sulfa Antibiotics. (rash). SOCIAL HISTORY Never smoker. Occasional alcohol use. No drug use. ADDITIONAL NOTES The nursing notes have been reviewed. PHYSICAL EXAM Vital Signs: 10/22/2016 19:45 BP: 178/91. HR: 100. RR: 22. O2 saturation: 100%. Temp: 98.1 F. Pain level now: 0/10. Appearance: Alert. Anxious. (non-toxic.). Eyes: Eyes normal inspection. ENT: Pharynx normal. Neck: Normal inspection. Neck supple. No JVD. CVS: Normal heart rate and rhythm. Heart sounds normal. Pulses normal. No cardiac murmur. Respiratory: No respiratory distress. Breath sounds normal. Chest nontender. Abdomen: Soft and nontender. Bowel sounds normal. Back: Normal external inspection. Skin: Skin warm. Normal skin color. No rash. Extremities: Extremities exhibit normal ROM. No calf tenderness. No lower extremity edema. Neuro: Oriented X 3. No motor deficit. No sensory deficit. Reflexes normal. LABS, X-RAYS, AND EKG EKG: No acute process. No acute ischemia. Normal EKG. Normal sinus rhythm. Rate: 87. Normal P waves. Normal GABRIEL. Normal QRS complex. Normal axis. Normal ST and T waves, QT and QTc. Prior EKG unavailable. The study has been interpreted contemporaneously by me. The study has been independently viewed by me. The EKG appears to be a good tracing. Chest X-ray: (PROCEDURE: XR CHEST 1 VIEW INDICATION: Compared to chest x-ray on 10/16/2013. TECHNIQUE: Portable AP view (201 5 hours). COMPARISON: None. FINDINGS: Allowing for overlying wires and electrodes, lungs are clear. Heart and mediastinum are normal. Thorax is normal. IMPRESSION: 1. Negative chest.). Views: AP (portable). The X-rays were independently viewed by me and interpreted by the radiologist. The X-rays were discussed with the radiologist (via pacs). Laboratory Tests: CBC w Diff: (WILMA: 10/22/2016 20:00) ( MsgRcvd 10/22/2016 20:29) Final results Test Result Flag Units (Reference) WHITE BLOOD COUNT 12.6 H K/uL (4.5-11.5) RED BLOOD COUNT 4.81 M/uL (4.00-5.20) HEMOGLOBIN 14.6 gm/dL (12.0-16.0) HEMATOCRIT 43.7 % (36.0-46.0) MEAN CELL VOLUME 91 fL (80-100) MEAN CORPUSCULAR HGB 30 pg (26-34) MEAN CORPUSCULAR HGB CONC 33 g/dL (31-37) RED CELL DISTRIBUTION WIDTH 13.8 % (11.6-14.8) PLATELET COUNT 319 K/uL (150-400) NEUTROPHIL % 62.6 % (50-75) LYMPH % 27.1 % (25-40) MONO % 8.2 % (3-14) EOSINOPHIL % 1.7 % (0-4) BASOPHIL % 0.4 % (0-2) TSH: (WILMA: 10/22/2016 20:00) ( [facility]30) Final results Test Result Flag Units (Reference) THYROID STIMULATING HORMONE 3.656 uIU/mL (0.34-3.74) CHEM 13 PANEL: (WILMA: 10/22/2016 20:00) ( MigRcvd 10/22/2016 20:49) Final results Test Result Flag Units (Reference) GLUCOSE 93 mg/dL (70-110) BUN 21 H mg/dL (7-18) CREATININE 0.9 mg/dL (0.6-1.3) Estimated GFR >60 mL/min Estimated GFR- >60 mL/min Note: Persistent reduction over 3 months in eGFR<60 mL/min/1.73 m2 defines CKD. Patients with eGFR values>=60 mL/min/1.73 m2 may also have CKD if evidence ofpersistent proteinuria. Additional information may be foundat www.[email or web address].org. SODIUM 145 mmol/L (136-145) POTASSIUM 3.5 mmol/L (3.5-5.1) CHLORIDE 106 mmol/L (98-107) CARBON DIOXIDE 27 mmol/L (21-32) CALCIUM 8.9 mg/dL (8.5-10.1) TOTAL PROTEIN 8.0 g/dL (6.4-8.2) ALBUMIN 4.2 g/dL (3.3-5.0) BILIRUBIN, TOTAL 0.5 mg/dL (0.0-1.0) ALKALINE PHOSPHATASE 96 U/L (46-116) AST (SGOT) 17 U/L (15-37) ALT (SGPT) 28 U/L (12-78) MAGNESIUM 2.4 mg/dL (1.8-2.4) CPK 126 U/L (24-260) TROPONIN I <0.05 L ng/mL (0.00-1.5) TROPONIN REFERENCE RANGE:<0.1 NEGATIVE0.1-1.5 INDETERMINANT>1.5 POSITIVE . PROGRESS AND PROCEDURES Course of Care: Anxiety may be a component to her symptoms. Xanax 0.5 mg po the patient is a pleasant 51-year-old female presented for evaluation of chest pain and anxiety Reaction. Patient is noted to be low risk on the bower criteria. Patient was initially evaluated by the outgoing physician at the change of shift. I have taken over the patient's care at the change of shift. No acute abdomen maladies noted on patient's workup thus far. Past follow-up with patient's laboratory studies and disposition. I have introduced myself to be patient and perform an independent physical examination. Agree with the prior physician's assessment and plan. The patient is noted to have a negative troponin. Patient is also noted to be at low risk given the well's criteria for pulmonary embolism. do not feel further workup or imaging required for a vaginal pulmonary embolism given patient's low risk. Symptoms significantly improved while here in the emergency department. Because the patient's negative workup here in the emergency department, do not feel patient needs bon. Patient is a otherwise at low risk for acute myocardial infarction however patient was encouraged to follow up with cardiology in regards to further risk stratification and evaluation of her chest pain. Patient states that she does have a scheduled appointment for a Holter monitor. Patient was encouraged to continue with this evaluation. Discussed the patient workup here in the emergency department including diagnosis, home care, follow-up, and return precautions. All questions have been answered. The patient expressed understanding of these instructions and was agreeable to them. CLINICAL IMPRESSION Chest pain characterized as "discomfort" .12 lead EKG performed. 10/22/2016 23:00 BP: 116/58. HR: 68. RR: 18. O2 saturation: 97%. Pain level now: 2/10. Blood pressure normal. Oxygen saturation normal. Anxiety reaction (acute). INSTRUCTIONS Warnings: SEDATIVE MEDICATION: You were given sedative medication during your visit. Do not drive or operate dangerous machinery. CONTROLLED SUBSTANCE WARNINGS. GENERAL WARNINGS: Return or contact your physician immediately if your condition worsens or changes unexpectedly, if not improving as expected, or if other problems arise. SPECIFICALLY, return if you develop chest, neck, jaw, shoulder, arm, or back pain, difficulty breathing, a fluttering sensation in your chest, lightheadedness, fainting, excessive fatigue, or sudden sweating. Your Current Medications: CONTINUE TAKING THE FOLLOWING MEDICATIONS: Co Q 10 Oral. Multivitamin Oral. Vitamin c Oral. Vitamin D-Vitamin K Oral. Vitamin E Complete Oral. Prescription Medications: Ativan 0.5 mg: take 1 orally every 8 hours as needed for anxiety. Dispense ten (10). No refill. Substitution is permissible. Follow-up: Return to the emergency department as needed. Follow up with your doctor in three days. Reason for referral: recheck today's concerns. Summary of care provided to patient via paper. Follow up with your doctor. Screening today revealed the patient's blood pressure to be in the normal range. The patient should follow up with a primary care provider for blood pressure management. Understanding of the discharge instructions verbalized by patient. Follow-up with: Lj Sherman MD, Cardiology, , Located Within [facility] - Cardiology, [address] [place] [address] Follow up in three days. Reason for referral: recheck today's concerns. Summary of care provided to patient via paper. (Electronically signed by Pedro Pablo Anne Dr. 10/23/2016 5:52)
--- NOTE | 2016-10-23 05:53 | ED MAR SUMMARY ---
..... Medication Administration Record [facility] [address] [place] [address] Patient: JAMAL COLLINS Visit ID: [id number] 51y, F Weight: 72.5 kg Height/Length: 61.5 in BMI: 29.7 ALLERGIES: Cipro, Sulfa Antibiotics Given 21:09 10/22/2016 Tonny, Radha RRobelN. Medication Administered: ALPRAZOLAM [PO], Dose: 0.5 mg Tablets PO. Medication Ordered: Alprazolam PO 0.5 mg (NOW).
--- NOTE | 2016-10-23 05:53 | ED MAR SUMMARY ---
..... Medication Administration Record [facility] [address] [place] [address] Patient: JAMAL COLLINS Visit ID: [id number] 51y, F Weight: 72.5 kg Height/Length: 61.5 in BMI: 29.7 ALLERGIES: Cipro, Sulfa Antibiotics Given 21:09 10/22/2016 Tonny, Radha RRobelN. Medication Administered: ALPRAZOLAM [PO], Dose: 0.5 mg Tablets PO. Medication Ordered: Alprazolam PO 0.5 mg (NOW).
--- NOTE | 2016-10-23 05:53 | ED MED RECONCILIATION SUMMARY ---
Patient: JAMAL COLLINS Medication Reconciliation Report [facility] VisitID: [id number] [address] [place] [address] 51y, F Registration Date/Time: 10/22/2016 Weight: 72.5 kg Height/Length: (not available) BMI: 29.7 ALLERGIES: Cipro, Sulfa Antibiotics The patient's Home Medications are listed below: CONTINUE TAKING THE FOLLOWING MEDICATIONS: Co Q 10 Oral Multivitamin Oral Vitamin c Oral Vitamin D-Vitamin K Oral Vitamin E Complete Oral The source(s) of the original Home Medication information: Not obtained. The following Medications were given to the patient in the Emergency Department: Alprazolam [PO] PO 0.5 mg, administered: 10/22/2016 9:09:00 PM The following Medications were prescribed to the patient: Ativan 0.5 mg: take 1 orally every 8 hours as needed for anxiety. Dispense ten (10). No refill. Substitution is permissible. -- Pedro Pablo Anne Dr.
--- NOTE | 2016-10-23 05:53 | ED DISCHARGE INSTRUCTIONS ---
Patient: JAMAL COLLINS General Instructions [facility] VisitID: [id number] [address] [place] [address] 51y, F Registration Date/Time: 10/22/2016 Chest pain characterized as "discomfort" .12 lead EKG performed. 10/22/2016 23:00 BP: 116/58. HR: 68. RR: 18. O2 saturation: 97%. Pain level now: 07/21. Blood pressure normal. Oxygen saturation normal. Anxiety reaction (acute). INSTRUCTIONS Warnings: SEDATIVE MEDICATION: You were given sedative medication during your visit. Do not drive or operate dangerous machinery. CONTROLLED SUBSTANCE WARNINGS. GENERAL WARNINGS: Return or contact your physician immediately if your condition worsens or changes unexpectedly, if not improving as expected, or if other problems arise. SPECIFICALLY, return if you develop chest, neck, jaw, shoulder, arm, or back pain, difficulty breathing, a fluttering sensation in your chest, lightheadedness, fainting, excessive fatigue, or sudden sweating. Your Current Medications: CONTINUE TAKING THE FOLLOWING MEDICATIONS: Co Q 10 Oral. Multivitamin Oral. Vitamin c Oral. Vitamin D-Vitamin K Oral. Vitamin E Complete Oral. Prescription Medications: Ativan 0.5 mg: take 1 orally every 8 hours as needed for anxiety. Dispense ten (10). No refill. Substitution is permissible. Follow-up: Return to the emergency department as needed. Follow up with your doctor in three days. Reason for referral: recheck today's concerns. Summary of care provided to patient via paper. Follow up with your doctor. Screening today revealed the patient's blood pressure to be in the normal range. The patient should follow up with a primary care provider for blood pressure management. Understanding of the discharge instructions verbalized by patient. Follow-up with: Lj Sherman MD, Cardiology, , [facility], [address] [place] [address], [id number] Follow up in three days. Reason for referral: recheck today's concerns. Summary of care provided to patient via paper. ADDITIONAL INFORMATION Chest Pain, Uncertain Cause Chest pain can happen for a number of reasons. Sometimes the cause can not be determined. If yourcondition does not seem serious, and your pain does not appear to be coming from your heart, your doctor may recommend watching it closely. Sometimes the signs of a serious problem take more time to appear. Therefore, watch for the warning signs listed below. Home care After your visit, follow these recommendations: Rest today and avoid strenuous activity. Take any prescribed medicine as directed. Follow-up care Follow up with your doctor or this facility as instructed or if you do not start to feel better within 24 hours. Call 911 Get immediate medical attention if any of the following occur: A change in the type of pain: if it feels different, becomes more severe, lasts longer, or begins to spread into your shoulder, arm, neck, jaw or back Shortness of breath or increased pain with breathing Weakness, dizziness, or fainting Rapid heart beat Get prompt medical attention Call your doctor right away if any of the following occur: Cough with dark colored sputum (phlegm) or blood Fever of 100.4F(38C) or higher, or as directed by your health care provider Swelling, pain or redness in one leg Stress Reaction Anxiety is the feeling we all get when we think something bad might happen. It is a normal response to stress and usually causes only a mild reaction. When anxiety becomes more severe, emotions may interfere with daily life. In some cases, you may not even be aware of what it is youre anxious about! During an anxiety reaction, you may feel like you are helpless, nervous, depressed or irritable. Your body may show signs of anxiety in many ways. You may experience dry mouth, shakiness, dizziness, weakness, trouble breathing, chest pressure, headache, nausea, diarrhea, tiredness, inability to sleep or sexual problems. Home Care: 1) Try to locate the sources of stress in your life. They may not be obvious! These may include: -- Daily hassles of life which pile up (traffic jams, missed appointments, car troubles, etc.) -- Major life changes, both good (new baby, job promotion) and bad (loss of job, loss of loved one) -- Overload: feeling that you have too many responsibilities and can't take care of all of them at once -- Feeling helpless, feeling that your problems are beyond what youre able to solve 2) Notice how your body reacts to stress. Learn to listen to your body signals. This will help you take action before the stress becomes severe. 3) When you can, do something about the source of your stress. (Avoid hassles, limit the amount of change that happens in your life at one time and take a break when you feel overloaded). 4) Unfortunately, many stressful situations cannot be avoided. It is necessary to learn HOW TO MANAGE STRESS better. There are many proven methods that will reduce your anxiety. These include simple things like exercise, good nutrition and adequate rest. Also, there are certain techniques that are helpful: relaxation and breathing exercises, visualization, biofeedback and meditation. For more information about this, consult your doctor or go to a local bookstore and review the many books and tapes available on this subject. Follow Up If you feel that your anxiety is not responding to self-help measures, contact your doctor or make an appointment with a counselor. Get Prompt Medical Attention if any of the following occur: -- Your symptoms get worse -- Chest pain or trouble breathing -- Severe headache not relieved by rest and mild pain reliever -- Rapid or irregular heartbeat, fainting Lorazepam Oral tablet What is this medicine? LORAZEPAM (ann A ze flash) is a benzodiazepine. It is used to treat anxiety. How should I use this medicine? Take this medicine by mouth with a glass of water. Follow the directions on the prescription label. If it upsets your stomach, take it with food or milk. Take your medicine at regular intervals. Do not take it more often than directed. Do not stop taking except on the advice of your doctor or health critical care unit manager. Talk to your farm service adviser regarding the use of this medicine in children. Special care may be needed. What side effects may I notice from receiving this medicine? Side effects that you should report to your doctor or health critical care unit manager as soon as possible: changes in vision confusion depression mood changes, excitability or aggressive behavior movement difficulty, staggering or jerky movements muscle cramps restlessness weakness or tiredness Side effects that usually do not require medical attention (report to your doctor or health critical care unit manager if they continue or are bothersome): constipation or diarrhea difficulty sleeping, nightmares dizziness, drowsiness headache nausea, vomiting What may interact with this medicine? barbiturate medicines for inducing sleep or treating seizures, like phenobarbital clozapine medicines for depression, mental problems or psychiatric disturbances medicines for sleep phenytoin probenecid theophylline valproic acid What if I miss a dose? If you miss a dose, take it as soon as you can. If it is almost time for your next dose, take only that dose. Do not take double or extra doses. Where should I keep my medicine? Keep out of the reach of children. This medicine can be abused. Keep your medicine in a safe place to protect it from theft. Do not share this medicine with anyone. Selling or giving away this medicine is dangerous and against the law. Store at room temperature between 20 and 25 degrees C (68 and 77 degrees F). Protect from light. Keep container tightly closed. Throw away any unused medicine after the expiration date. What should I tell my health care provider before I take this medicine? They need to know if you have any of these conditions: alcohol or drug abuse problem bipolar disorder, depression, psychosis or other mental health condition glaucoma kidney or liver disease lung disease or breathing difficulties myasthenia gravis Parkinson's disease seizures or a history of seizures suicidal thoughts an unusual or allergic reaction to lorazepam, other benzodiazepines, foods, dyes, or preservatives or trying to get breast-feeding What should I watch for while using this medicine? Visit your doctor or health critical care unit manager for regular checks on your progress. Your body may become dependent on this medicine, ask your doctor or health critical care unit manager if you still need to take it. However, if you have been taking this medicine regularly for some time, do not suddenly stop taking it. You must gradually reduce the dose or you may get severe side effects. Ask your doctor or health critical care unit manager for advice before increasing or decreasing the dose. Even after you stop taking this medicine it can still affect your body for several days. You may get drowsy or dizzy. Do not drive, use machinery, or do anything that needs mental alertness until you know how this medicine affects you. To reduce the risk of dizzy and fainting spells, do not stand or sit up quickly, especially if you are an older patient. Alcohol may increase dizziness and drowsiness. Avoid alcoholic drinks. Do not treat yourself for coughs, colds or allergies without asking your doctor or health critical care unit manager for advice. Some ingredients can increase possible side effects. You have been given the following additional information: Chest Pain, Uncertain Cause Anxiety Reaction Lorazepam Oral tablet (Electronically signed by Pedro Pablo Anne Dr. 10/23/2016 5:52)
--- NOTE | 2016-10-23 05:53 | ED MED RECONCILIATION SUMMARY ---
Patient: JAMAL COLLINS Medication Reconciliation Report [facility] VisitID: [id number] [address] [place] [address] 51y, F Registration Date/Time: 10/22/2016 Weight: 72.5 kg Height/Length: (not available) BMI: 29.7 ALLERGIES: Cipro, Sulfa Antibiotics The patient's Home Medications are listed below: CONTINUE TAKING THE FOLLOWING MEDICATIONS: Co Q 10 Oral Multivitamin Oral Vitamin c Oral Vitamin D-Vitamin K Oral Vitamin E Complete Oral The source(s) of the original Home Medication information: Not obtained. The following Medications were given to the patient in the Emergency Department: Alprazolam [PO] PO 0.5 mg, administered: 10/22/2016 9:09:00 PM The following Medications were prescribed to the patient: Ativan 0.5 mg: take 1 orally every 8 hours as needed for anxiety. Dispense ten (10). No refill. Substitution is permissible. -- Pedro Pablo Anne Dr.
--- NOTE | 2016-10-23 05:53 | ED DISCHARGE INSTRUCTIONS ---
Patient: JAMAL COLLINS General Instructions [facility] VisitID: [id number] [address] [place] [address] 51y, F Registration Date/Time: 10/22/2016 Chest pain characterized as "discomfort" .12 lead EKG performed. 10/22/2016 23:00 BP: 116/58. HR: 68. RR: 18. O2 saturation: 97%. Pain level now: 07/21. Blood pressure normal. Oxygen saturation normal. Anxiety reaction (acute). INSTRUCTIONS Warnings: SEDATIVE MEDICATION: You were given sedative medication during your visit. Do not drive or operate dangerous machinery. CONTROLLED SUBSTANCE WARNINGS. GENERAL WARNINGS: Return or contact your physician immediately if your condition worsens or changes unexpectedly, if not improving as expected, or if other problems arise. SPECIFICALLY, return if you develop chest, neck, jaw, shoulder, arm, or back pain, difficulty breathing, a fluttering sensation in your chest, lightheadedness, fainting, excessive fatigue, or sudden sweating. Your Current Medications: CONTINUE TAKING THE FOLLOWING MEDICATIONS: Co Q 10 Oral. Multivitamin Oral. Vitamin c Oral. Vitamin D-Vitamin K Oral. Vitamin E Complete Oral. Prescription Medications: Ativan 0.5 mg: take 1 orally every 8 hours as needed for anxiety. Dispense ten (10). No refill. Substitution is permissible. Follow-up: Return to the emergency department as needed. Follow up with your doctor in three days. Reason for referral: recheck today's concerns. Summary of care provided to patient via paper. Follow up with your doctor. Screening today revealed the patient's blood pressure to be in the normal range. The patient should follow up with a primary care provider for blood pressure management. Understanding of the discharge instructions verbalized by patient. Follow-up with: Lj Sherman MD, Cardiology, , [facility], [address] [place] [address], [id number] Follow up in three days. Reason for referral: recheck today's concerns. Summary of care provided to patient via paper. ADDITIONAL INFORMATION Chest Pain, Uncertain Cause Chest pain can happen for a number of reasons. Sometimes the cause can not be determined. If yourcondition does not seem serious, and your pain does not appear to be coming from your heart, your doctor may recommend watching it closely. Sometimes the signs of a serious problem take more time to appear. Therefore, watch for the warning signs listed below. Home care After your visit, follow these recommendations: Rest today and avoid strenuous activity. Take any prescribed medicine as directed. Follow-up care Follow up with your doctor or this facility as instructed or if you do not start to feel better within 24 hours. Call 911 Get immediate medical attention if any of the following occur: A change in the type of pain: if it feels different, becomes more severe, lasts longer, or begins to spread into your shoulder, arm, neck, jaw or back Shortness of breath or increased pain with breathing Weakness, dizziness, or fainting Rapid heart beat Get prompt medical attention Call your doctor right away if any of the following occur: Cough with dark colored sputum (phlegm) or blood Fever of 100.4F(38C) or higher, or as directed by your health care provider Swelling, pain or redness in one leg Stress Reaction Anxiety is the feeling we all get when we think something bad might happen. It is a normal response to stress and usually causes only a mild reaction. When anxiety becomes more severe, emotions may interfere with daily life. In some cases, you may not even be aware of what it is youre anxious about! During an anxiety reaction, you may feel like you are helpless, nervous, depressed or irritable. Your body may show signs of anxiety in many ways. You may experience dry mouth, shakiness, dizziness, weakness, trouble breathing, chest pressure, headache, nausea, diarrhea, tiredness, inability to sleep or sexual problems. Home Care: 1) Try to locate the sources of stress in your life. They may not be obvious! These may include: -- Daily hassles of life which pile up (traffic jams, missed appointments, car troubles, etc.) -- Major life changes, both good (new baby, job promotion) and bad (loss of job, loss of loved one) -- Overload: feeling that you have too many responsibilities and can't take care of all of them at once -- Feeling helpless, feeling that your problems are beyond what youre able to solve 2) Notice how your body reacts to stress. Learn to listen to your body signals. This will help you take action before the stress becomes severe. 3) When you can, do something about the source of your stress. (Avoid hassles, limit the amount of change that happens in your life at one time and take a break when you feel overloaded). 4) Unfortunately, many stressful situations cannot be avoided. It is necessary to learn HOW TO MANAGE STRESS better. There are many proven methods that will reduce your anxiety. These include simple things like exercise, good nutrition and adequate rest. Also, there are certain techniques that are helpful: relaxation and breathing exercises, visualization, biofeedback and meditation. For more information about this, consult your doctor or go to a local bookstore and review the many books and tapes available on this subject. Follow Up If you feel that your anxiety is not responding to self-help measures, contact your doctor or make an appointment with a counselor. Get Prompt Medical Attention if any of the following occur: -- Your symptoms get worse -- Chest pain or trouble breathing -- Severe headache not relieved by rest and mild pain reliever -- Rapid or irregular heartbeat, fainting Lorazepam Oral tablet What is this medicine? LORAZEPAM (ann A ze flash) is a benzodiazepine. It is used to treat anxiety. How should I use this medicine? Take this medicine by mouth with a glass of water. Follow the directions on the prescription label. If it upsets your stomach, take it with food or milk. Take your medicine at regular intervals. Do not take it more often than directed. Do not stop taking except on the advice of your doctor or health healthcare consultant. Talk to your clinic charge nurse regarding the use of this medicine in children. Special care may be needed. What side effects may I notice from receiving this medicine? Side effects that you should report to your doctor or health healthcare consultant as soon as possible: changes in vision confusion depression mood changes, excitability or aggressive behavior movement difficulty, staggering or jerky movements muscle cramps restlessness weakness or tiredness Side effects that usually do not require medical attention (report to your doctor or health healthcare consultant if they continue or are bothersome): constipation or diarrhea difficulty sleeping, nightmares dizziness, drowsiness headache nausea, vomiting What may interact with this medicine? barbiturate medicines for inducing sleep or treating seizures, like phenobarbital clozapine medicines for depression, mental problems or psychiatric disturbances medicines for sleep phenytoin probenecid theophylline valproic acid What if I miss a dose? If you miss a dose, take it as soon as you can. If it is almost time for your next dose, take only that dose. Do not take double or extra doses. Where should I keep my medicine? Keep out of the reach of children. This medicine can be abused. Keep your medicine in a safe place to protect it from theft. Do not share this medicine with anyone. Selling or giving away this medicine is dangerous and against the law. Store at room temperature between 20 and 25 degrees C (68 and 77 degrees F). Protect from light. Keep container tightly closed. Throw away any unused medicine after the expiration date. What should I tell my health care provider before I take this medicine? They need to know if you have any of these conditions: alcohol or drug abuse problem bipolar disorder, depression, psychosis or other mental health condition glaucoma kidney or liver disease lung disease or breathing difficulties myasthenia gravis Parkinson's disease seizures or a history of seizures suicidal thoughts an unusual or allergic reaction to lorazepam, other benzodiazepines, foods, dyes, or preservatives or trying to get breast-feeding What should I watch for while using this medicine? Visit your doctor or health healthcare consultant for regular checks on your progress. Your body may become dependent on this medicine, ask your doctor or health healthcare consultant if you still need to take it. However, if you have been taking this medicine regularly for some time, do not suddenly stop taking it. You must gradually reduce the dose or you may get severe side effects. Ask your doctor or health healthcare consultant for advice before increasing or decreasing the dose. Even after you stop taking this medicine it can still affect your body for several days. You may get drowsy or dizzy. Do not drive, use machinery, or do anything that needs mental alertness until you know how this medicine affects you. To reduce the risk of dizzy and fainting spells, do not stand or sit up quickly, especially if you are an older patient. Alcohol may increase dizziness and drowsiness. Avoid alcoholic drinks. Do not treat yourself for coughs, colds or allergies without asking your doctor or health healthcare consultant for advice. Some ingredients can increase possible side effects. You have been given the following additional information: Chest Pain, Uncertain Cause Anxiety Reaction Lorazepam Oral tablet (Electronically signed by Pedro Pablo Anne Dr. 10/23/2016 5:52)
== END 2016-10-22 23:51 | disposition home or self-care (01) ==
LOC: ED SRH 19:41
DX: F41.1 Generalized anxiety disorder (principal); R07.9 Chest pain, unspecified; Z88.1 Allergy status to other antibiotic agents; Z88.2 Allergy status to sulfonamides
CPT/HCPCS: 90100; 90616; 92610; 92720; 93140; 95059

== ENCOUNTER 2016-10-25 08:56 | Outpatient (CLI) | payer OTHER | END 2016-10-25 23:00 | LOC: RT SRH 08:56 | DX: R42 Dizziness and giddiness (principal) ==

== ENCOUNTER 2016-10-27 12:51 | Emergency (ER) | payer OTHER ==
--- NOTE | 2016-10-27 14:51 | DIAGNOSTIC IMAGING REPORT ---
PROCEDURE: XR CHEST 1 VIEW INDICATION: CHEST PAIN TECHNIQUE: Portable AP view 02:32 p.m. COMPARISON: Chest 11/05/2013 FINDINGS: Lungs are clear. Heart and mediastinum are normal. Thorax is normal. IMPRESSION: 1. Negative chest.
--- NOTE | 2016-10-27 15:54 | DIAGNOSTIC IMAGING REPORT ---
PROCEDURE: CTA THORAX WITH CONTRAST INDICATION: CHEST PAIN WITH ELEVATED D-DIMER TECHNIQUE: 76 ml of Isovue 370 was injected intravenously and axial images were obtained of the entire thorax with 3D sagittal and coronal MIP reconstructions. COMPARISON: Chest x-ray 10/27/2016 FINDINGS: No evidence of pulmonary emboli. Lungs are clear. No adenopathy or effusion. 1.9 cm left thyroid nodule. Normal thoracic aorta without dissection or aneurysm. Normal heart size. Visualized upper abdomen is unremarkable. Moderate degenerative changes of the spine. IMPRESSION: 1. No evidence of pulmonary emboli, aortic dissection or aneurysm 2. 1.9 cm left thyroid nodule 3. Results discussed with Dr. Anne
--- NOTE | 2016-10-27 17:48 | ED CLINICAL REPORT ---
Clinical Report - Physicians/Mid Levels [facility] [address] [place] [address] 10/27/2016 12:51 Patient: JAMAL COLLINS Time Seen: 1318. Arrived- By private vehicle. Historian- patient. HISTORY OF PRESENT ILLNESS Chief Complaint: CHEST DISCOMFORT. 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 It was abrupt in onset and has been constant but is not gone now. Onset during rest. At its maximum, severity described as mild. When seen in the E.D., severity described as mild. Modifying factors. Not worsened by anything. Not relieved by anything. It is described as discomfort. No radiation. No nausea, vomiting or diaphoresis. She has had difficulty breathing. No additional chest pain. Similar symptoms previously: None. Recent medical care: Not recently seen/assessed. REVIEW OF SYSTEMS No fever, pedal edema or skin rash. All systems otherwise negative, except as recorded above. PAST HISTORY See nurses notes. Medications: Co Q 10 Oral. Multivitamin Oral. Vitamin c Oral. Vitamin D-Vitamin K Oral. Vitamin E Complete Oral. Allergies: Cipro. ("messed up my tendons" ) Sulfa Antibiotics. (rash). SOCIAL HISTORY Never smoker. Occasional alcohol use. No drug use. No recent travel. Is a local resident. ADDITIONAL NOTES The nursing notes have been reviewed. PHYSICAL EXAM Vital Signs: 10/27/2016 13:23 BP: 154/95. HR: 89. RR: 18. O2 saturation: 100%. Temp: 98.2 F. Blood pressure normal. Oxygen saturation normal. Appearance: Alert. Oriented X3. No acute distress. Eyes: Pupils equal, round and reactive to light. Eyes normal inspection. ENT: Ears normal. Nose normal. Pharynx normal. Neck: Normal inspection. Neck supple. CVS: Normal heart rate and rhythm. Heart sounds normal. Pulses normal. Respiratory: No respiratory distress. Breath sounds normal. Chest nontender. No rales, rhonchi or wheezes. Abdomen: Soft and nontender. Bowel sounds normal. Skin: Skin warm and dry. Normal skin color. No rash. Normal skin turgor. Extremities: Extremities exhibit normal ROM. No lower extremity edema. Neuro: Oriented X 3. No motor deficit. No sensory deficit. LABS, X-RAYS, AND EKG Chest X-ray: (PROCEDURE: CTA THORAX WITH CONTRAST INDICATION: CHEST PAIN WITH ELEVATED D-DIMER TECHNIQUE: 76 ml of Isovue 370 was injected intravenously and axial images were obtained of the entire thorax with 3D sagittal and coronal MIP reconstructions. COMPARISON: Chest x-ray 10/27/2016 FINDINGS: No evidence of pulmonary emboli. Lungs are clear. No adenopathy or effusion. 1.9 cm left thyroid nodule. Normal thoracic aorta without dissection or aneurysm. Normal heart size. Visualized upper abdomen is unremarkable. Moderate degenerative changes of the spine. IMPRESSION: 1. No evidence of pulmonary emboli, aortic dissection or aneurysm 2. 1.9 cm left thyroid nodule). Chest CT: (PROCEDURE: CTA THORAX WITH CONTRAST INDICATION: CHEST PAIN WITH ELEVATED D-DIMER TECHNIQUE: 76 ml of Isovue 370 was injected intravenously and axial images were obtained of the entire thorax with 3D sagittal and coronal MIP reconstructions. COMPARISON: Chest x-ray 10/27/2016 FINDINGS: No evidence of pulmonary emboli. Lungs are clear. No adenopathy or effusion. 1.9 cm left thyroid nodule. Normal thoracic aorta without dissection or aneurysm. Normal heart size. Visualized upper abdomen is unremarkable. Moderate degenerative changes of the spine. IMPRESSION: 1. No evidence of pulmonary emboli, aortic dissection or aneurysm 2. 1.9 cm left thyroid nodule). Laboratory Tests: UA-Culture if indicated: (WILMA: 10/27/2016 14:45) ( MsgRcvd 10/27/2016 15:19) Final results Test Result Flag Units (Reference) URINE COLOR YELLOW URINE APPEARANCE CLEAR URINE GLUCOSE NEGATIVE (NEGATIVE) URINE BILIRUBIN NEGATIVE (NEGATIVE) URINE KETONE NEGATIVE (NEGATIVE) URINE SPECIFIC GRAVITY 1.015 (1.010-1.030) URINE PH 6.0 (5.0-8.0) URINE PROTEIN NEGATIVE (NEGATIVE) URINE UROBILINOGEN 0.2 EU/dL (0.2-1.0) URINE NITRITE NEGATIVE (NEGATIVE) URINE BLOOD TRACE-INTACT (NEGATIVE) URINE LEUK ESTERASE NEGATIVE (NEGATIVE) URINE RBC 0-1 rbc/hpf (0-1) URINE WBC 0-1 wbc/hpf (0-1) URINE EPITHELIAL CELLS 0-1 EPI/hpf (0-5) URINE BACTERIA NONE SEEN (NONE SEEN) URINE COMMENT CULT NOT INDICATED URINE CULTURES ARE SET-UP BASED ON THE FOLLOWING CRITERIA:POSITIVE NITRITEPOSITIVE LEUKOCYTE ESTERASEGREATER THAN 10 WHITE BLOOD CELLSMODERATE (2+) OR GREATER BACTERIA Urine: (WILMA: 10/27/2016 14:45) ( [facility] 14:54) Final results Test Result Flag Units (Reference) URINE NEGATIVE CBC w Diff: (WILMA: 10/27/2016 14:30) ( [facility] 10/27/2016 14:37) Final results Test Result Flag Units (Reference) WHITE BLOOD COUNT 6.7 # K/uL (4.5-11.5) RED BLOOD COUNT 4.44 M/uL (4.00-5.20) HEMOGLOBIN 13.5 gm/dL (12.0-16.0) HEMATOCRIT 40.1 % (36.0-46.0) MEAN CELL VOLUME 90 fL (80-100) MEAN CORPUSCULAR HGB 30 pg (26-34) MEAN CORPUSCULAR HGB CONC 34 g/dL (31-37) RED CELL DISTRIBUTION WIDTH 13.8 % (11.6-14.8) PLATELET COUNT 279 K/uL (150-400) NEUTROPHIL % 61.4 % (50-75) LYMPH % 27.6 % (25-40) MONO % 9.3 % (3-14) EOSINOPHIL % 1.0 % (0-4) BASOPHIL % 0.7 % (0-2) [id number]: (WILMA: 10/27/2016 14:30) ( [facility] 10/27/2016 14:52) Final results Test Result Flag Units (Reference) D-DIMER QUANTITATIVE 0.71 H ug/mLFEU (0.27-0.52) The primary value of this quantitative assay relates toits negative predictive value (i.e. exclusion) of pulmonaryembolism/deep vein thrombosis/DIC.Elevated levels of d-dimer may also occur with:, age, cancer, inflammation, liver disease,post-op, infection, hematoma, coronary disease, peripheralarteriopathy, bleeding disorders and thrombolytic treatment.Results should be correlated with other clinical andradiological data.Testing Methodology: Latex Immunoassay Troponin-I: (WILMA: 10/27/2016 16:25) ( [facility] 10/27/2016 17:04) Final results Test Result Flag Units (Reference) TROPONIN I <0.05 ng/mL (0.00-1.5) TROPONIN REFERENCE RANGE:<0.1 NEGATIVE0.1-1.5 INDETERMINANT>1.5 POSITIVE CMP: (WILMA: 10/27/2016 14:30) ( [facility] 10/27/2016 15:09) Final results Test Result Flag Units (Reference) GLUCOSE 120 H mg/dL (70-110) BUN 23 H mg/dL (7-18) CREATININE 0.8 mg/dL (0.6-1.3) Estimated GFR >60 mL/min Estimated GFR- >60 mL/min Note: Persistent reduction over 3 months in eGFR<60 mL/min/1.73 m2 defines CKD. Patients with eGFR values>=60 mL/min/1.73 m2 may also have CKD if evidence ofpersistent proteinuria. Additional information may be foundat www.[email or web address].org. SODIUM 143 mmol/L (136-145) POTASSIUM 4.2 mmol/L (3.5-5.1) CHLORIDE 104 mmol/L (98-107) CARBON DIOXIDE 30 mmol/L (21-32) CALCIUM 8.9 mg/dL (8.5-10.1) TOTAL PROTEIN 7.3 g/dL (6.4-8.2) ALBUMIN 3.9 g/dL (3.3-5.0) BILIRUBIN, TOTAL 0.6 mg/dL (0.0-1.0) ALKALINE PHOSPHATASE 85 U/L (46-116) AST (SGOT) 18 U/L (15-37) ALT (SGPT) 27 U/L (12-78) LIPASE 250 U/L (73-393) TROPONIN I <0.05 L ng/mL (0.00-1.5) TROPONIN REFERENCE RANGE:<0.1 NEGATIVE0.1-1.5 INDETERMINANT>1.5 POSITIVE THYROID STIMULATING HORMONE 1.552 uIU/mL (0.34-3.74) . PROGRESS AND PROCEDURES Course of Care: he patient is a pleasant 51-year-old female presenting for evaluation of chest pain. Patient has atypical symptoms of chest pain. Patient will be evaluated for a acute myocardial infarction pulmonary embolism, thoracic aortic dissection, pneumonia. Patient is agreeable to the treatment plan. Patient appears nontoxic. Vital signs are noted to be unremarkable at this time. Patient's workup was significant for negative first troponin. Because the patient had symptoms of chest pain for less than 8 hours of onset, a delta troponin will be ordered. D-dimer is noted to be elevated. Patient is agreeable to the treatment and plan for a CTA. Discussed with the patient risk of radiation exposure however because the current patient's chest pain, feel that the benefits of the CT outweighs the risks at this time. Patient's workup was noted for the findings above. CT scan of the chest does not show any signs of pulmonary embolism. Patient is noted to have a 1.9 cm left thyroid nodule which she was informed about. The rest of the patient's workup is negative. Delta troponin is negative. UA does not show any signs of urinary tract infection. Rest the patient's workup is unremarkable. Patient had resolution of her pain while here in the emergency department. Patient continues to be resting in bed and in no acute distress. Repeat examination continues to be benign. Patient is overall low risk for acute myocardial infarction. Patient be instructed to follow-up with the television schedule coordinator as an outpatient. Patient is a good stable outpatient candidate. Discussed with patient workup here in the emergency department including diagnosis, home care, follow-up, and return precautions. All questions have been answered. The patient expressed understanding of these instructions and was agreeable. Disposition: Discharged. Condition: good. CLINICAL IMPRESSION Acute dyspnea (acute). Atypical chest pain .12 lead EKG performed. (acute substernal). INSTRUCTIONS Warnings: GENERAL WARNINGS: Return or contact your physician immediately if your condition worsens or changes unexpectedly, if not improving as expected, or if other problems arise. SPECIFICALLY, return if you develop chest, neck, jaw, shoulder, arm, or back pain, difficulty breathing, a fluttering sensation in your chest, lightheadedness, fainting, excessive fatigue, or sudden sweating. Your Current Medications: CONTINUE TAKING THE FOLLOWING MEDICATIONS: Co Q 10 Oral. Multivitamin Oral. Vitamin c Oral. Vitamin D-Vitamin K Oral. Vitamin E Complete Oral. Follow-up: Return to the emergency department as needed. Follow up with your doctor in three days. Reason for referral: recheck todays concerns. Screening today revealed the patient's blood pressure to be in the normal range. The patient should follow up with a primary care provider for blood pressure management. Understanding of the discharge instructions verbalized by patient. (Electronically signed by Pedro Pablo Anne Dr. 11/03/2016 21:51)
--- NOTE | 2016-10-27 17:48 | ED CLINICAL REPORT ---
Clinical Report - Physicians/Mid Levels [facility] [address] [place] [address] 10/27/2016 12:51 Patient: JAMAL COLLINS Time Seen: 1318. Arrived- By private vehicle. Historian- patient. HISTORY OF PRESENT ILLNESS Chief Complaint: CHEST DISCOMFORT. 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 It was abrupt in onset and has been constant but is not gone now. Onset during rest. At its maximum, severity described as mild. When seen in the E.D., severity described as mild. Modifying factors. Not worsened by anything. Not relieved by anything. It is described as discomfort. No radiation. No nausea, vomiting or diaphoresis. She has had difficulty breathing. No additional chest pain. Similar symptoms previously: None. Recent medical care: Not recently seen/assessed. REVIEW OF SYSTEMS No fever, pedal edema or skin rash. All systems otherwise negative, except as recorded above. PAST HISTORY See nurses notes. Medications: Co Q 10 Oral. Multivitamin Oral. Vitamin c Oral. Vitamin D-Vitamin K Oral. Vitamin E Complete Oral. Allergies: Cipro. ("messed up my tendons" ) Sulfa Antibiotics. (rash). SOCIAL HISTORY Never smoker. Occasional alcohol use. No drug use. No recent travel. Is a local resident. ADDITIONAL NOTES The nursing notes have been reviewed. PHYSICAL EXAM Vital Signs: 10/27/2016 13:23 BP: 154/95. HR: 89. RR: 18. O2 saturation: 100%. Temp: 98.2 F. Blood pressure normal. Oxygen saturation normal. Appearance: Alert. Oriented X3. No acute distress. Eyes: Pupils equal, round and reactive to light. Eyes normal inspection. ENT: Ears normal. Nose normal. Pharynx normal. Neck: Normal inspection. Neck supple. CVS: Normal heart rate and rhythm. Heart sounds normal. Pulses normal. Respiratory: No respiratory distress. Breath sounds normal. Chest nontender. No rales, rhonchi or wheezes. Abdomen: Soft and nontender. Bowel sounds normal. Skin: Skin warm and dry. Normal skin color. No rash. Normal skin turgor. Extremities: Extremities exhibit normal ROM. No lower extremity edema. Neuro: Oriented X 3. No motor deficit. No sensory deficit. LABS, X-RAYS, AND EKG Chest X-ray: (PROCEDURE: CTA THORAX WITH CONTRAST INDICATION: CHEST PAIN WITH ELEVATED D-DIMER TECHNIQUE: 76 ml of Isovue 370 was injected intravenously and axial images were obtained of the entire thorax with 3D sagittal and coronal MIP reconstructions. COMPARISON: Chest x-ray 10/27/2016 FINDINGS: No evidence of pulmonary emboli. Lungs are clear. No adenopathy or effusion. 1.9 cm left thyroid nodule. Normal thoracic aorta without dissection or aneurysm. Normal heart size. Visualized upper abdomen is unremarkable. Moderate degenerative changes of the spine. IMPRESSION: 1. No evidence of pulmonary emboli, aortic dissection or aneurysm 2. 1.9 cm left thyroid nodule). Chest CT: (PROCEDURE: CTA THORAX WITH CONTRAST INDICATION: CHEST PAIN WITH ELEVATED D-DIMER TECHNIQUE: 76 ml of Isovue 370 was injected intravenously and axial images were obtained of the entire thorax with 3D sagittal and coronal MIP reconstructions. COMPARISON: Chest x-ray 10/27/2016 FINDINGS: No evidence of pulmonary emboli. Lungs are clear. No adenopathy or effusion. 1.9 cm left thyroid nodule. Normal thoracic aorta without dissection or aneurysm. Normal heart size. Visualized upper abdomen is unremarkable. Moderate degenerative changes of the spine. IMPRESSION: 1. No evidence of pulmonary emboli, aortic dissection or aneurysm 2. 1.9 cm left thyroid nodule). Laboratory Tests: UA-Culture if indicated: (WILMA: 10/27/2016 14:45) ( MsgRcvd 10/27/2016 15:19) Final results Test Result Flag Units (Reference) URINE COLOR YELLOW URINE APPEARANCE CLEAR URINE GLUCOSE NEGATIVE (NEGATIVE) URINE BILIRUBIN NEGATIVE (NEGATIVE) URINE KETONE NEGATIVE (NEGATIVE) URINE SPECIFIC GRAVITY 1.015 (1.010-1.030) URINE PH 6.0 (5.0-8.0) URINE PROTEIN NEGATIVE (NEGATIVE) URINE UROBILINOGEN 0.2 EU/dL (0.2-1.0) URINE NITRITE NEGATIVE (NEGATIVE) URINE BLOOD TRACE-INTACT (NEGATIVE) URINE LEUK ESTERASE NEGATIVE (NEGATIVE) URINE RBC 0-1 rbc/hpf (0-1) URINE WBC 0-1 wbc/hpf (0-1) URINE EPITHELIAL CELLS 0-1 EPI/hpf (0-5) URINE BACTERIA NONE SEEN (NONE SEEN) URINE COMMENT CULT NOT INDICATED URINE CULTURES ARE SET-UP BASED ON THE FOLLOWING CRITERIA:POSITIVE NITRITEPOSITIVE LEUKOCYTE ESTERASEGREATER THAN 10 WHITE BLOOD CELLSMODERATE (2+) OR GREATER BACTERIA Urine: (WILMA: 10/27/2016 14:45) ( [facility] 10/27/2016 14:54) Final results Test Result Flag Units (Reference) URINE NEGATIVE CBC w Diff: (WILMA: 10/27/2016 14:30) ( [facility] 10/27/2016 14:37) Final results Test Result Flag Units (Reference) WHITE BLOOD COUNT 6.7 # K/uL (4.5-11.5) RED BLOOD COUNT 4.44 M/uL (4.00-5.20) HEMOGLOBIN 13.5 gm/dL (12.0-16.0) HEMATOCRIT 40.1 % (36.0-46.0) MEAN CELL VOLUME 90 fL (80-100) MEAN CORPUSCULAR HGB 30 pg (26-34) MEAN CORPUSCULAR HGB CONC 34 g/dL (31-37) RED CELL DISTRIBUTION WIDTH 13.8 % (11.6-14.8) PLATELET COUNT 279 K/uL (150-400) NEUTROPHIL % 61.4 % (50-75) LYMPH % 27.6 % (25-40) MONO % 9.3 % (3-14) EOSINOPHIL % 1.0 % (0-4) BASOPHIL % 0.7 % (0-2) [id number]: (WILMA: 10/27/2016 14:30) ( [facility] 10/27/2016 14:52) Final results Test Result Flag Units (Reference) D-DIMER QUANTITATIVE 0.71 H ug/mLFEU (0.27-0.52) The primary value of this quantitative assay relates toits negative predictive value (i.e. exclusion) of pulmonaryembolism/deep vein thrombosis/DIC.Elevated levels of d-dimer may also occur with:, age, cancer, inflammation, liver disease,post-op, infection, hematoma, coronary disease, peripheralarteriopathy, bleeding disorders and thrombolytic treatment.Results should be correlated with other clinical andradiological data.Testing Methodology: Latex Immunoassay Troponin-I: (WILMA: 10/27/2016 16:25) ( [facility] 10/27/2016 17:04) Final results Test Result Flag Units (Reference) TROPONIN I <0.05 ng/mL (0.00-1.5) TROPONIN REFERENCE RANGE:<0.1 NEGATIVE0.1-1.5 INDETERMINANT>1.5 POSITIVE CMP: (WILMA: 10/27/2016 14:30) ( [facility] 10/27/2016 15:09) Final results Test Result Flag Units (Reference) GLUCOSE 120 H mg/dL (70-110) BUN 23 H mg/dL (7-18) CREATININE 0.8 mg/dL (0.6-1.3) Estimated GFR >60 mL/min Estimated GFR- >60 mL/min Note: Persistent reduction over 3 months in eGFR<60 mL/min/1.73 m2 defines CKD. Patients with eGFR values>=60 mL/min/1.73 m2 may also have CKD if evidence ofpersistent proteinuria. Additional information may be foundat [email or web address].org. SODIUM 143 mmol/L (136-145) POTASSIUM 4.2 mmol/L (3.5-5.1) CHLORIDE 104 mmol/L (98-107) CARBON DIOXIDE 30 mmol/L (21-32) CALCIUM 8.9 mg/dL (8.5-10.1) TOTAL PROTEIN 7.3 g/dL (6.4-8.2) ALBUMIN 3.9 g/dL (3.3-5.0) BILIRUBIN, TOTAL 0.6 mg/dL (0.0-1.0) ALKALINE PHOSPHATASE 85 U/L (46-116) AST (SGOT) 18 U/L (15-37) ALT (SGPT) 27 U/L (12-78) LIPASE 250 U/L (73-393) TROPONIN I <0.05 L ng/mL (0.00-1.5) TROPONIN REFERENCE RANGE:<0.1 NEGATIVE0.1-1.5 INDETERMINANT>1.5 POSITIVE THYROID STIMULATING HORMONE 1.552 uIU/mL (0.34-3.74) . PROGRESS AND PROCEDURES Course of Care: he patient is a pleasant 51-year-old female presenting for evaluation of chest pain. Patient has atypical symptoms of chest pain. Patient will be evaluated for a acute myocardial infarction pulmonary embolism, thoracic aortic dissection, pneumonia. Patient is agreeable to the treatment plan. Patient appears nontoxic. Vital signs are noted to be unremarkable at this time. Patient's workup was significant for negative first troponin. Because the patient had symptoms of chest pain for less than 8 hours of onset, a delta troponin will be ordered. D-dimer is noted to be elevated. Patient is agreeable to the treatment and plan for a CTA. Discussed with the patient risk of radiation exposure however because the current patient's chest pain, feel that the benefits of the CT outweighs the risks at this time. Patient's workup was noted for the findings above. CT scan of the chest does not show any signs of pulmonary embolism. Patient is noted to have a 1.9 cm left thyroid nodule which she was informed about. The rest of the patient's workup is negative. Delta troponin is negative. UA does not show any signs of urinary tract infection. Rest the patient's workup is unremarkable. Patient had resolution of her pain while here in the emergency department. Patient continues to be resting in bed and in no acute distress. Repeat examination continues to be benign. Patient is overall low risk for acute myocardial infarction. Patient be instructed to follow-up with the weblogic developer as an outpatient. Patient is a good stable outpatient candidate. Discussed with patient workup here in the emergency department including diagnosis, home care, follow-up, and return precautions. All questions have been answered. The patient expressed understanding of these instructions and was agreeable. Disposition: Discharged. Condition: good. CLINICAL IMPRESSION Acute dyspnea (acute). Atypical chest pain .12 lead EKG performed. (acute substernal). INSTRUCTIONS Warnings: GENERAL WARNINGS: Return or contact your physician immediately if your condition worsens or changes unexpectedly, if not improving as expected, or if other problems arise. SPECIFICALLY, return if you develop chest, neck, jaw, shoulder, arm, or back pain, difficulty breathing, a fluttering sensation in your chest, lightheadedness, fainting, excessive fatigue, or sudden sweating. Your Current Medications: CONTINUE TAKING THE FOLLOWING MEDICATIONS: Co Q 10 Oral. Multivitamin Oral. Vitamin c Oral. Vitamin D-Vitamin K Oral. Vitamin E Complete Oral. Follow-up: Return to the emergency department as needed. Follow up with your doctor in three days. Reason for referral: recheck todays concerns. Screening today revealed the patient's blood pressure to be in the normal range. The patient should follow up with a primary care provider for blood pressure management. Understanding of the discharge instructions verbalized by patient. (Electronically signed by Pedro Pablo Anne Dr. 11/03/2016 21:51)
--- NOTE | 2016-10-27 17:48 | ED ORDER SUMMARY ---
..... Patient: JAMAL COLLINS OrderSheet [facility] VisitID: [id number] [place] [address] 51y, F Registration Date/Time: 10/27/2016 ORDER SHEET Weight: 73.4 kg Allergies: Cipro, Sulfa Antibiotics GENERAL ORDERS: EKG - ER Stat (13:18 10/27/2016 Lelo Blackman) (Ack 13:45 Radha) (13:55 RKaruga) Remote Control Mirror Installer (Continuous) (CP) (14:20 10/27/2016 Lelo Blackman) (Ack 14:24 Radha) (14:25 EBonham) Chest 1V Urgent (14:10/27/2016 Lelo Blackman) (Ack 14:24 Radha) CBC w Diff Urgent (14:10/27/2016 Lelo Blackman) (Ack 14:23 Radha) (14:46 EBonham) CMP Urgent (14:10/27/2016 Lelo Blackman) (Ack 14:23 Radha) (14:46 EBonham) UA-Culture if indicated Urgent (14:10/27/2016 Lelo Blackman) (Ack 14:23 Radha) (14:46 EBonham) Lipase Urgent (14:10/27/2016 Lelo Blackman) (Ack 14:23 Radha) (14:46 EBonham) D-Dimer Urgent (14:20 10/27/2016 Lelo Blackman) (Ack 14:23 Radha) (14:46 EBonham) Troponin-I Urgent (14:20 10/27/2016 Lelo Blackman) (Ack 14:24 Radha) (14:46 EBonham) Urine Urgent (14:10/27/2016 Lelo Blackman) (Ack 14:23 Radha) (14:46 EBonham) Pulse oximeter (14:10/27/2016 Lelo Blackman) (Ack 14:24 Radha) (14:25 EBonham) TSH Urgent (14:10/27/2016 Lelo Blackman) (Ack 14:24 Radha) (14:[facility] CTA Thorax w Cont (No) (gfr > 60) Urgent (15:08 10/27/2016 Lelo Blackman) (Ack 15:14 Radha) Troponin-I (draw at 16:30 please) Urgent (15:31 10/27/2016 Lelo Blackman) (Ack 15:46 [facility] MEDICATION ORDERS: IV FLUIDS: IV Saline Lock (14:20 10/27/2016 Lelo Blackman) (14:46 [facility]) ORDER SHEET NOTES: [Electronically signed by Heather Kowalski (18:13 10/27/2016)] [Electronically signed by Perdo Pablo Anne Dr. (21:51 11/03/2016)] [Electronically locked/signed by Heather Kowalski (18:13 10/27/2016)]
--- NOTE | 2016-10-27 17:48 | ED NURSING NOTES ---
Clinical Report - Nurses [facility] [address] [place] [address] 10/27/2016 12:51 Patient: JAMAL COLLINS TRIAGE Triage time 1320. Acuity: LEVEL 3. Chief Complaint: CHEST DISCOMFORT and SHORTNESS OF BREATH. Alert. No acute distress. (anxious). --13:25 Heather Kowalski 13:23 10/27/16. BP: 154/95. HR: 89. RR: 18. O2 saturation: 100%. Temp: 98.2 F. Pain level now 06/20. --13:25 Heather Kowalski Triage time 1520. Chief Complaint: SHORTNESS OF BREATH. --16:37 Heather Kowalski. Weight: 73.4 kg. Height/Length: 62 inches. BMI: 29.6. --13:23 Heather Kowalski. Medications Co Q 10 Oral. Multivitamin Oral. Vitamin c Oral. Vitamin D-Vitamin K Oral. Vitamin E Complete Oral. --13:24 Heather Kowalski. Allergies Cipro. ("messed up my tendons" ) Sulfa Antibiotics. (rash) --13:24 Heather Kowalski. History Arrived by private vehicle. Historian: patient. Unaccompanied. This started today. ( Palpitations). Treatment TECHNICAL LABORATORY ASST: None. SOCIAL HX: Never smoker. Occasional alcohol use. --13:25 Heather Kowalski ( Pt has long hx of same "attacks" over the years, she feels this is getting worse, today she came to hospital to turn in holter monitor, in car on way here she felt chest discomfort, sob and palpitations, pt has rapid speech, is difficult to redirect, pt admits to refusing to take beta blockers as prescribed, she sts she is concerned she has a SA node problem and doesn't want to add to it, pt was unwilling to listen to benefits of med in her condition, pt also feels she is a new borderline diabetic as a test came back as a potential, pt also sts she just was called by PCP and told she has 3 autoimmune diseases based on labs and is to follow up with Rheumatology, they are: Sjogren's, Polymyositis and Systemic Sclerosis. Pt admits to high stress at home. Sts this could be panic and she doesn't know how to tell the difference between her heart and panic. Pt also sts she was here last time because her HR was between 90-100 bpm while sitting ini a restaurant, pt feels this way too fast for "just sitting" and felt this meant something was wrong.). --13:33 Heather Kowalski Arrived by private vehicle. Historian: patient. This started just prior to arrival. ( Pt was watching tv and developed sob and feeling of nervousness and anxiety). Treatment TECHNICAL LABORATORY ASST: None. --16:37 Heather Kowalski. PROBLEMS: Chest Pain. Gastroesophageal Reflux. Panic Attack. Anxiety Reaction. Near Syncope. Headache. Migraine Headache. --13:24 Heather Kowalski. Interventions ID band on patient. --13:25 Heather Kowalski. PHYSICAL ASSESSMENT Ambulatory to room. GENERAL / NEURO / PSYCH: Alert. Oriented X 4. Appears anxious and in distress. HEENT: Mucous membranes are pink. RESPIRATORY: Respirations not labored. Chest nontender. Breath sounds within normal limits. CVS: Normal sinus rhythm noted. Cardiac rhythm: normal sinus rhythm. Heart sounds within normal limits. Pulses within normal limits. Capillary refill less than 2 seconds. GI / : Abdomen soft and nontender. EXTREMITIES: No lower extremity edema. SKIN: Skin is warm and dry. Normal skin turgor. Skin is non-tender. --13:26 Heather Kowalski. NURSING PROGRESS NOTES Monitoring of patient in place. Reassurance given. Call light placed in reach. Bed placed in lowest position. Brakes of bed on. Patient ready for evaluation- chart flagged. --13:33 Heather Kowalski EKG time: (13:54). EKG was performed by a nick and shown to the ED physician. --13:55 Emmy Adorno 14:30 10/27/2016 Site #1 started via IV in the right antecubital space with an 20g angiocath, with aseptic technique and good blood return; one attempt. Blood drawn: rainbow set. Labeled in the presence of the patient and sent to the lab. Saline lock flushed with 10 mL saline. --14:46 Heather Kowalski 14:46 10/27/16. BP: 134/83. HR: 80. RR: 18. O2 saturation: 98%. --14:47 Heather Kowalski The patient reports no complaints. Overall patient status is the same- she states feels the same. Patient informed about reason for wait and about plan of care. Patient waiting for lab results. --14:47 Heather Kowalski 16:37 10/27/16. BP: 142/96. HR: 89. RR: 18. O2 saturation: 98%. Pain level now 0/10. --16:40 Heather Kowalski Overall patient status is the same- she states feels worse. Patient informed about reason for wait. Patient waiting for CT results. ( Pt remains anxious, she sts that she knows this is Autonomic Dysfunction, pt sts that when the fire management technician was drawing her blood she felt a wave of weakness, a feeling in her heart she cannot describe and a catch in her breath, she sts her blood pressure went high (154/97) and then she felt a flush, pt sts all sxs have resolved now, pt then c/o twitching to different muscles in her back that is new). --16:40 Heather Kowalski 18:11 10/27/2016 Site #1 removed upon discharge. Pressure dressing applied. --18:11 Heather Kowalski. DISPOSITION / DISCHARGE Departure time: 1809. Condition at departure: unchanged and stable. No learning barriers present. Discharge instructions provided and reviewed with the patient. Patient verbalized understanding. Written instructions provided in [place]. The patient was discharged by the physician. She was discharged home and unaccompanied at time of discharge. She left the Emergency Department ambulatory and via private vehicle. Patient driving. --18:13 Heather Kowalski 18:12 10/27/16. BP: 133/85. HR: 74. RR: 18. O2 saturation: 100%. Pain level now 0/10. --18:13 Heather Kowalski. Locked/Released at 10/27/2016 18:13 by Heather Kowalski,
--- NOTE | 2016-10-27 17:48 | ED NURSING NOTES ---
Clinical Report - Nurses [facility] [address] [place] [address] 10/27/2016 12:51 Patient: JAMAL COLLINS TRIAGE Triage time 1320. Acuity: LEVEL 3. Chief Complaint: CHEST DISCOMFORT and SHORTNESS OF BREATH. Alert. No acute distress. (anxious). --13:25 Heather Kowalski 13:23 10/27/16. BP: 154/95. HR: 89. RR: 18. O2 saturation: 100%. Temp: 98.2 F. Pain level now 06/20. --13:25 Heather Kowalski Triage time 1520. Chief Complaint: SHORTNESS OF BREATH. --16:37 Heather Kowalski. Weight: 73.4 kg. Height/Length: 62 inches. BMI: 29.6. --13:23 Heather Kowalski. Medications Co Q 10 Oral. Multivitamin Oral. Vitamin c Oral. Vitamin D-Vitamin K Oral. Vitamin E Complete Oral. --13:24 Heather Kowalski. Allergies Cipro. ("messed up my tendons" ) Sulfa Antibiotics. (rash) --13:24 Heather Kowalski. History Arrived by private vehicle. Historian: patient. Unaccompanied. This started today. ( Palpitations). Treatment MACHINE BANDER AND CELLOPHANER HELPER: None. SOCIAL HX: Never smoker. Occasional alcohol use. --13:25 Heather Kowalski ( Pt has long hx of same "attacks" over the years, she feels this is getting worse, today she came to hospital to turn in holter monitor, in car on way here she felt chest discomfort, sob and palpitations, pt has rapid speech, is difficult to redirect, pt admits to refusing to take beta blockers as prescribed, she sts she is concerned she has a SA node problem and doesn't want to add to it, pt was unwilling to listen to benefits of med in her condition, pt also feels she is a new borderline diabetic as a test came back as a potential, pt also sts she just was called by PCP and told she has 3 autoimmune diseases based on labs and is to follow up with Rheumatology, they are: Sjogren's, Polymyositis and Systemic Sclerosis. Pt admits to high stress at home. Sts this could be panic and she doesn't know how to tell the difference between her heart and panic. Pt also sts she was here last time because her HR was between 90-100 bpm while sitting ini a restaurant, pt feels this way too fast for "just sitting" and felt this meant something was wrong.). --13:33 Heather Kowalski Arrived by private vehicle. Historian: patient. This started just prior to arrival. ( Pt was watching tv and developed sob and feeling of nervousness and anxiety). Treatment MACHINE BANDER AND CELLOPHANER HELPER: None. --16:37 Heather Kowalski. PROBLEMS: Chest Pain. Gastroesophageal Reflux. Panic Attack. Anxiety Reaction. Near Syncope. Headache. Migraine Headache. --13:24 Heather Kowalski. Interventions ID band on patient. --13:25 Heather Kowalski. PHYSICAL ASSESSMENT Ambulatory to room. GENERAL / NEURO / PSYCH: Alert. Oriented X 4. Appears anxious and in distress. HEENT: Mucous membranes are pink. RESPIRATORY: Respirations not labored. Chest nontender. Breath sounds within normal limits. CVS: Normal sinus rhythm noted. Cardiac rhythm: normal sinus rhythm. Heart sounds within normal limits. Pulses within normal limits. Capillary refill less than 2 seconds. GI / : Abdomen soft and nontender. EXTREMITIES: No lower extremity edema. SKIN: Skin is warm and dry. Normal skin turgor. Skin is non-tender. --13:26 Heather Kowalski. NURSING PROGRESS NOTES Monitoring of patient in place. Reassurance given. Call light placed in reach. Bed placed in lowest position. Brakes of bed on. Patient ready for evaluation- chart flagged. --13:33 Heather Kowalski EKG time: (13:54). EKG was performed by a nick and shown to the ED physician. --13:55 Emmy Adorno 14:30 10/27/2016 Site #1 started via IV in the right antecubital space with an 20g angiocath, with aseptic technique and good blood return; one attempt. Blood drawn: rainbow set. Labeled in the presence of the patient and sent to the lab. Saline lock flushed with 10 mL saline. --14:46 Heather Kowalski 14:46 10/27/16. BP: 134/83. HR: 80. RR: 18. O2 saturation: 98%. --14:47 Heather Kowalski The patient reports no complaints. Overall patient status is the same- she states feels the same. Patient informed about reason for wait and about plan of care. Patient waiting for lab results. --14:47 Heather Kowalski 16:37 10/27/16. BP: 142/96. HR: 89. RR: 18. O2 saturation: 98%. Pain level now 0/10. --16:40 Heather Kowalski Overall patient status is the same- she states feels worse. Patient informed about reason for wait. Patient waiting for CT results. ( Pt remains anxious, she sts that she knows this is Autonomic Dysfunction, pt sts that when the technician automated equipment was drawing her blood she felt a wave of weakness, a feeling in her heart she cannot describe and a catch in her breath, she sts her blood pressure went high (154/97) and then she felt a flush, pt sts all sxs have resolved now, pt then c/o twitching to different muscles in her back that is new). --16:40 Heather Kowalski 18:11 10/27/2016 Site #1 removed upon discharge. Pressure dressing applied. --18:11 Heather Kowalski. DISPOSITION / DISCHARGE Departure time: 1809. Condition at departure: unchanged and stable. No learning barriers present. Discharge instructions provided and reviewed with the patient. Patient verbalized understanding. Written instructions provided in Erit[place]. The patient was discharged by the physician. She was discharged home and unaccompanied at time of discharge. She left the Emergency Department ambulatory and via private vehicle. Patient driving. --18:13 Heather Kowalski 18:12 10/27/16. BP: 133/85. HR: 74. RR: 18. O2 saturation: 100%. Pain level now 0/10. --18:13 Heather Kowalski. Locked/Released at 10/27/2016 18:13 by Heather Kowalski,
--- NOTE | 2016-10-27 17:48 | ED ORDER SUMMARY ---
..... Patient: JAMAL COLLINS OrderSheet [facility] VisitID: [id number] [place] [address] 51y, F Registration Date/Time: 10/27/2016 ORDER SHEET Weight: 73.4 kg Allergies: Cipro, Sulfa Antibiotics GENERAL ORDERS: EKG - ER Stat (13:18 10/27/2016 Lelo Blackman) (Ack 13:45 Radha) (13:55 RKaruga) Grease Press Helper (Continuous) (CP) (14:20 10/27/2016 Lelo Blackman) (Ack 14:24 Radha) (14:25 EBonham) Chest 1V Urgent (14:10/27/2016 Lelo Blackman) (Ack 14:24 Radha) CBC w Diff Urgent (14:10/27/2016 Lelo Blackman) (Ack 14:23 Radha) (14:46 EBonham) CMP Urgent (14:10/27/2016 Lelo Blackman) (Ack 14:23 Radha) (14:46 EBonham) UA-Culture if indicated Urgent (14:10/27/2016 Lelo Blackman) (Ack 14:23 Radha) (14:46 EBonham) Lipase Urgent (14:10/27/2016 Lelo Blackman) (Ack 14:23 Radha) (14:46 EBonham) D-Dimer Urgent (14:20 10/27/2016 Lelo Blackman) (Ack 14:23 Radha) (14:46 EBonham) Troponin-I Urgent (14:20 10/27/2016 Lelo Blackman) (Ack 14:24 Radha) (14:46 EBonham) Urine Urgent (14:10/27/2016 Lelo Blackman) (Ack 14:23 Radha) (14:46 EBonham) Pulse oximeter (14:10/27/2016 Lelo Blackman) (Ack 14:24 Radha) (14:25 EBonham) TSH Urgent (14:10/27/2016 Lelo Blackman) (Ack 14:24 Radha) (14:46 [facility]) CTA Thorax w Cont (No) (gfr > 60) Urgent (15:08 10/27/2016 Lelo Blackman) (Ack 15:14 Radha) Troponin-I (draw at 16:30 please) Urgent (15:31 10/27/2016 Lelo Blackman) (Ack 15:46 [facility]) MEDICATION ORDERS: IV FLUIDS: IV Saline Lock (14:20 10/27/2016 Lelo Blackman) (14:46 [facility]) ORDER SHEET NOTES: [Electronically signed by Heather Kowalski (18:13 10/27/2016)] [Electronically signed by Pedro Pablo Anne Dr[address] (21:51 11/03/2016)] [Electronically locked/signed by Heather Kowalski (18:13 10/27/2016)]
--- NOTE | 2016-11-03 21:52 | ED MED RECONCILIATION SUMMARY ---
Patient: JAMAL COLLINS Medication Reconciliation Report [facility] VisitID: [id number] [address] [place] [address] 51y, F Registration Date/Time: 10/27/2016 Weight: 73.4 kg Height/Length: 62 in. BMI: 29.6 ALLERGIES: Cipro, Sulfa Antibiotics The patient's Home Medications are listed below: CONTINUE TAKING THE FOLLOWING MEDICATIONS: Co Q 10 Oral Multivitamin Oral Vitamin c Oral Vitamin D-Vitamin K Oral Vitamin E Complete Oral The source(s) of the original Home Medication information: Not obtained. The following Medications were given to the patient in the Emergency Department: None. The following Medications were prescribed to the patient: None.
--- NOTE | 2016-11-03 21:52 | ED MAR SUMMARY ---
..... Medication Administration Record [facility] [address] [place], [place] [id number] Patient: JAMAL COLLINS Visit ID: [id number] 51y, F Weight: 73.4 kg Height/Length: 62 in BMI: 29.6 ALLERGIES: Cipro, Sulfa Antibiotics
--- NOTE | 2016-11-03 21:52 | ED MED RECONCILIATION SUMMARY ---
Patient: JAMAL COLLINS Medication Reconciliation Report [facility] VisitID: [id number] [address] [place] [address] 51y, F Registration Date/Time: 10/27/2016 Weight: 73.4 kg Height/Length: 62 in. BMI: 29.6 ALLERGIES: Cipro, Sulfa Antibiotics The patient's Home Medications are listed below: CONTINUE TAKING THE FOLLOWING MEDICATIONS: Co Q 10 Oral Multivitamin Oral Vitamin c Oral Vitamin D-Vitamin K Oral Vitamin E Complete Oral The source(s) of the original Home Medication information: Not obtained. The following Medications were given to the patient in the Emergency Department: None. The following Medications were prescribed to the patient: None.
--- NOTE | 2016-11-03 21:52 | ED MAR SUMMARY ---
..... Medication Administration Record [facility] [address] [place], [place] [id number] Patient: JAMAL COLLINS Visit ID: [id number] 51y, F Weight: 73.4 kg Height/Length: 62 in BMI: 29.6 ALLERGIES: Cipro, Sulfa Antibiotics
--- NOTE | 2016-11-03 21:52 | ED DISCHARGE INSTRUCTIONS ---
Patient: JAMAL COLLINS General Instructions [facility] VisitID: [id number] [address] [place] [address] 51y, F Registration Date/Time: 10/27/2016 Acute dyspnea (acute). Atypical chest pain .12 lead EKG performed. (acute substernal). INSTRUCTIONS Warnings: GENERAL WARNINGS: Return or contact your physician immediately if your condition worsens or changes unexpectedly, if not improving as expected, or if other problems arise. SPECIFICALLY, return if you develop chest, neck, jaw, shoulder, arm, or back pain, difficulty breathing, a fluttering sensation in your chest, lightheadedness, fainting, excessive fatigue, or sudden sweating. Your Current Medications: CONTINUE TAKING THE FOLLOWING MEDICATIONS: Co Q 10 Oral. Multivitamin Oral. Vitamin c Oral. Vitamin D-Vitamin K Oral. Vitamin E Complete Oral. Follow-up: Return to the emergency department as needed. Follow up with your doctor in three days. Reason for referral: recheck todays concerns. Screening today revealed the patient's blood pressure to be in the normal range. The patient should follow up with a primary care provider for blood pressure management. Understanding of the discharge instructions verbalized by patient. ADDITIONAL INFORMATION Dyspnea (Shortness Of Breath) Shortness of Breath (also known as "Dyspnea") is the sense that you can't catch your breath or can't get enough air. Dyspnea can be caused by many different conditions such as: Acute asthma attack Worsening of emphysema (also called "COPD") -- a lung diseasethat is caused by smoking A mucus plug blocks a large air passage in the lung -- this can occur with emphysema or chronic bronchitis Congestive Heart Failure ("CHF") -- when a weak heart muscle allows excess fluid to collect inthe lungs Panic attacks, anxiety -- fear can cause rapid breathing ("hyperventilation") Pneumonia -- infection in the lung tissue Exposure to toxic fumes or smoke Pulmonary embolus (blood clot to the lung) Based on your visit today, the exact cause of your shortness of breath is not certain. Your tests do not show any of the serious causes of dyspnea. Sometimes, further testing is needed to find out if a serious problem exists. Therefore, it is important for you to watch for any new symptoms or worsening of your condition and follow up with your doctor as directed. Home Care: When your symptoms are better, resume your usual activities. If you smoke, you need to stop. Join a stop-smoking program or ask your doctor for help. Follow Up with your doctor or as advised by our staff. Get Prompt Medical Attention if any of the following occur: Increasing shortness of breath or wheezing Redness, pain or swelling in one leg Swelling in both legs or ankles Unexpected weight gain Chest, arm, shoulder, neck or upper back pain Dizziness, weakness or fainting Palpitations (the sense that your heart is fluttering, beating fast or hard) Fever of 100.4F (38C) or higher, or as directed by your healthcare provider Cough with dark colored or bloody sputum (mucus) Chest Pain, Uncertain Cause Chest pain can happen for a number of reasons. Sometimes the cause can not be determined. If yourcondition does not seem serious, and your pain does not appear to be coming from your heart, your doctor may recommend watching it closely. Sometimes the signs of a serious problem take more time to appear. Therefore, watch for the warning signs listed below. Home care After your visit, follow these recommendations: Rest today and avoid strenuous activity. Take any prescribed medicine as directed. Follow-up care Follow up with your doctor or this facility as instructed or if you do not start to feel better within 24 hours. Call 911 Get immediate medical attention if any of the following occur: A change in the type of pain: if it feels different, becomes more severe, lasts longer, or begins to spread into your shoulder, arm, neck, jaw or back Shortness of breath or increased pain with breathing Weakness, dizziness, or fainting Rapid heart beat Get prompt medical attention Call your doctor right away if any of the following occur: Cough with dark colored sputum (phlegm) or blood Fever of 100.4F(38C) or higher, or as directed by your health care provider Swelling, pain or redness in one leg You have been given the following additional information: Dyspnea Chest Pain, Uncertain Cause (Electronically signed by Pedro Pablo Anne Dr. 11/03/2016 21:51)
== END 2016-10-27 18:10 | disposition home or self-care (01) ==
LOC: ED SRH 12:51
DX: R06.00 Dyspnea, unspecified (principal); R07.89 Other chest pain; Z79.899 Other long term (current) drug therapy; Z88.1 Allergy status to other antibiotic agents; Z88.2 Allergy status to sulfonamides
CPT/HCPCS: 90004; 90100; 90616; 91556; 92235; 93070; 93140; 95059

== ENCOUNTER 2016-10-29 00:22 | Emergency (ER) | payer OTHER ==
--- NOTE | 2016-10-29 03:17 | ED CLINICAL REPORT ---
Clinical Report - Physicians/Mid Levels [facility] [address] [place] [address] 10/29/2016 0:22 Patient: JAMAL COLLINS Time Seen: 01:06 Oct 29 2016. Arrived- By private vehicle. Historian- patient. CPT: ER phys charges level 4 (#[id number]). HISTORY OF PRESENT ILLNESS Chief Complaint: WEAKNESS. ( palpitations. Onset. (about 1 months ago). ( has had these symptoms for several days, seen here and [facility]. pt dropped off holter monitor. pt under alot of stress).). Not described as feeling light-headed or weak all over or a sense of confusion. Severity described as moderate at its maximum. When seen in the E.D., it was gone. Modifying factors- relieved by nothing. Not worsened by anything. 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 No nausea. Similar symptoms previously: Several times, as bad. Diagnosis: (Unknown). Recent medical care: The patient was seen recently at another facility in the office. Evaluation/treatment- Holtor ordered. REVIEW OF SYSTEMS No headache, double vision, weakness, fainting episodes or chest pain. No black stools, fever, sore throat, cough or difficulty breathing. No abdominal pain, diarrhea, skin rash or enlarged lymph nodes. No difficulty walking. The patient has had palpitations. All systems otherwise negative, except as recorded above. PAST HISTORY ( Dyspnea. Atypical Chest Pain. Chest Pain. Gastroesophageal Reflux. Panic Attack. Anxiety Reaction. Near Syncope. Immunizations. LNMP - Last Normal Menstrual Period. Headache. Migraine Headache.). Additional Surgeries: no known surgeries. Medications: Co Q 10 Oral. Multivitamin Oral. Vitamin c Oral. Vitamin D-Vitamin K Oral. Vitamin E Complete Oral. Allergies: Cipro. ("messed up my tendons" ) Sulfa Antibiotics. (rash). SOCIAL HISTORY Occasional alcohol use. No drug use. ADDITIONAL NOTES The nursing notes have been reviewed. PHYSICAL EXAM Vital Signs: 10/29/2016 00:24 BP: 153/95. HR: 88. RR: 18. O2 saturation: 98%. Temp: 98.7 F. Pain level now: 0/10. Appearance: Alert. Anxious. Eyes: Pupils equal, round and reactive to light. No nystagmus. Extraocular movements normal. ENT: Normal ENT inspection. TM's normal. Moist mucous membranes. Pharynx normal. Neck: Normal inspection. Neck supple. CVS: Normal heart rate and rhythm. Heart sounds normal. Pulses normal. Rhythm normal. No cardiac murmur. Respiratory: No respiratory distress. Breath sounds normal. Abdomen: Soft and nontender. Back: Normal inspection. Skin: Skin warm. Normal skin color. No rash. Extremities: Extremities exhibit normal ROM. No lower extremity edema. Neuro: Alert. Oriented X 3. Mood/affect normal. Speech normal. Cranial nerves normal (as tested). No cerebellar findings. No motor deficit. No sensory deficit. PROGRESS AND PROCEDURES Course of Care: 01:38 10/29/16. Symptoms coming back right now. Xanax 0.5 mg po Patient is stable. Symptoms better. Patient/family counseled. Disposition: Discharged. Condition: stable. CLINICAL IMPRESSION Anxiety reaction with hyperventilation. Palpitations. INSTRUCTIONS Warnings: Further evaluation is necessary. SEDATIVE MEDICATION: You were given sedative medication during your visit. Do not drive or operate dangerous machinery. GENERAL WARNINGS: Return or contact your physician immediately if your condition worsens or changes unexpectedly, if not improving as expected, or if other problems arise. Your Current Medications: CONTINUE TAKING THE FOLLOWING MEDICATIONS: Co Q 10 Oral. Multivitamin Oral. Vitamin c Oral. Vitamin D-Vitamin K Oral. Vitamin E Complete Oral. Follow-up: Follow up with your doctor in five days. Call for an appointment. Understanding of the discharge instructions verbalized by patient. Discharge instructions reviewed with and understanding was verbalized by spouse. (Electronically signed by Horace Fung MD 10/31/2016 23:46)
--- NOTE | 2016-10-29 03:17 | ED CLINICAL REPORT ---
Clinical Report - Physicians/Mid Levels [facility] [address] [place] [address] 10/29/2016 0:22 Patient: JAMAL COLLINS Time Seen: 01:06 Oct 29 2016. Arrived- By private vehicle. Historian- patient. CPT: ER phys charges level 4 (#[id number]). HISTORY OF PRESENT ILLNESS Chief Complaint: WEAKNESS. ( palpitations. Onset. (about 1 months ago). ( has had these symptoms for several days, seen here and [facility] same. pt dropped off holter monitor. pt under alot of stress).). Not described as feeling light-headed or weak all over or a sense of confusion. Severity described as moderate at its maximum. When seen in the E.D., it was gone. Modifying factors- relieved by nothing. Not worsened by anything. 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 No nausea. Similar symptoms previously: Several times, as bad. Diagnosis: (Unknown). Recent medical care: The patient was seen recently at another facility in the office. Evaluation/treatment- Holtor ordered. REVIEW OF SYSTEMS No headache, double vision, weakness, fainting episodes or chest pain. No black stools, fever, sore throat, cough or difficulty breathing. No abdominal pain, diarrhea, skin rash or enlarged lymph nodes. No difficulty walking. The patient has had palpitations. All systems otherwise negative, except as recorded above. PAST HISTORY ( Dyspnea. Atypical Chest Pain. Chest Pain. Gastroesophageal Reflux. Panic Attack. Anxiety Reaction. Near Syncope. Immunizations. LNMP - Last Normal Menstrual Period. Headache. Migraine Headache.). Additional Surgeries: no known surgeries. Medications: Co Q 10 Oral. Multivitamin Oral. Vitamin c Oral. Vitamin D-Vitamin K Oral. Vitamin E Complete Oral. Allergies: Cipro. ("messed up my tendons" ) Sulfa Antibiotics. (rash). SOCIAL HISTORY Occasional alcohol use. No drug use. ADDITIONAL NOTES The nursing notes have been reviewed. PHYSICAL EXAM Vital Signs: 10/29/2016 00:24 BP: 153/95. HR: 88. RR: 18. O2 saturation: 98%. Temp: 98.7 F. Pain level now: 0/10. Appearance: Alert. Anxious. Eyes: Pupils equal, round and reactive to light. No nystagmus. Extraocular movements normal. ENT: Normal ENT inspection. TM's normal. Moist mucous membranes. Pharynx normal. Neck: Normal inspection. Neck supple. CVS: Normal heart rate and rhythm. Heart sounds normal. Pulses normal. Rhythm normal. No cardiac murmur. Respiratory: No respiratory distress. Breath sounds normal. Abdomen: Soft and nontender. Back: Normal inspection. Skin: Skin warm. Normal skin color. No rash. Extremities: Extremities exhibit normal ROM. No lower extremity edema. Neuro: Alert. Oriented X 3. Mood/affect normal. Speech normal. Cranial nerves normal (as tested). No cerebellar findings. No motor deficit. No sensory deficit. PROGRESS AND PROCEDURES Course of Care: 01:38 10/29/16. Symptoms coming back right now. Xanax 0.5 mg po Patient is stable. Symptoms better. Patient/family counseled. Disposition: Discharged. Condition: stable. CLINICAL IMPRESSION Anxiety reaction with hyperventilation. Palpitations. INSTRUCTIONS Warnings: Further evaluation is necessary. SEDATIVE MEDICATION: You were given sedative medication during your visit. Do not drive or operate dangerous machinery. GENERAL WARNINGS: Return or contact your physician immediately if your condition worsens or changes unexpectedly, if not improving as expected, or if other problems arise. Your Current Medications: CONTINUE TAKING THE FOLLOWING MEDICATIONS: Co Q 10 Oral. Multivitamin Oral. Vitamin c Oral. Vitamin D-Vitamin K Oral. Vitamin E Complete Oral. Follow-up: Follow up with your doctor in five days. Call for an appointment. Understanding of the discharge instructions verbalized by patient. Discharge instructions reviewed with and understanding was verbalized by spouse. (Electronically signed by Horace Fung MD 10/31/2016 23:46)
--- NOTE | 2016-10-29 03:18 | ED NURSING NOTES ---
Clinical Report - Nurses [address] [place] [address] 10/29/2016 0:22 Patient: JAMAL COLLINS TRIAGE Triage time 00:26. Acuity: LEVEL 4. Chief Complaint: PALPITATIONS ("feels funny"). --00:33 Marielena Holbrook R.N. 00:24 10/29/16. BP: 153/95. HR: 88 (regular and normal rate). RR: 18 (regular and unlabored). O2 saturation: 98% on room air. Temp: 98.7 F (oral). Pain level now: 0/10. --00:33 Marielena Holbrook R.N. Weight: 73.4 kg stated. Height/Length: 61 inches Per Patient. BMI: 30.6. --00:27 Marielena Holbrook R.N. Medications Co Q 10 Oral. Multivitamin Oral. Vitamin c Oral. Vitamin D-Vitamin K Oral. Vitamin E Complete Oral. --00:31 Marielena Holbrook R.N. Allergies Cipro. ("messed up my tendons" ) Sulfa Antibiotics. (rash) --00:31 Marielena Holbrook R.N. History Arrived by EMS. Historian: patient. Unaccompanied. Primary physician (latasha). Onset. (about 1 months ago). ( has had these symptoms for several days, [facility] pt dropped off holter monitor. pt under alot of stress). PAST MEDICAL HX: Immunizations: up-to-date. The patient is post-menopausal. SOCIAL HX: Never smoker. Occasional alcohol use. No drug use. No infectious disease exposure. ABUSE ASSESSMENT: No report of abuse. SELF HARM ASSESSMENT: A self harm assessment was performed. The patient answered "no" to the question "Have you recently felt down, depressed, or hopeless?", "Have you noticed less interest or pleasure in doing things?", "Do you have thoughts of harming or killing yourself?", "Are you here because you tried to hurt yourself?", "Have you ever tried to hurt yourself before today?", "Have you recently had thoughts about harming or killing others?" and "Do you have any dangerous items in your possession?". FALL RISK ASSESSMENT: Fall risk assessment completed. No fall risk identified. NUTRITIONAL RISK ASSESSMENT: The nutritional risk assessment revealed no deficiencies. FUNCTIONAL ASSESSMENT: Functional assessment: no impairments noted. LEARNING NEEDS ASSESSMENT: The learning needs assessment revealed no barriers. SKIN INTEGRITY ASSESSMENT: Skin integrity risk assessment completed. No skin integrity risk identified. --00:33 Marielena Holbrook R.N. PROBLEMS: Dyspnea. Atypical Chest Pain. Chest Pain. Gastroesophageal Reflux. Panic Attack. Anxiety Reaction. Near Syncope. Immunizations. LNMP - Last Normal Menstrual Period. Headache. Migraine Headache. --00:31 Marielena Holbrook R.N. ADDITIONAL SURGERIES: no known surgeries. PHYSICAL ASSESSMENT To room via stretcher. GENERAL / NEURO / PSYCH: Alert. Oriented X 4. Appears anxious. HEENT: Pupils equal, round and reactive to light. No facial asymmetry noted. Mucous membranes are pink. RESPIRATORY: Respirations not labored. Chest nontender. Breath sounds within normal limits. CVS: Normal sinus rhythm noted. Capillary refill less than 2 seconds. Pulses within normal limits. GI / : Abdomen soft and nontender and normal bowel sounds. SKIN: Skin intact. Skin is warm and dry. Normal skin turgor. --00:33 Marielena Holbrook R.N. NURSING PROGRESS NOTES Two patient identifiers checked. Call light placed in reach. Side rails up x 2. Bed placed in lowest position. Brakes of bed on. --00:33 Marielena Holbrook R.N. Patient ready for evaluation- chart flagged. --00:33 Marielena Holbrook R.N. 01:48 10/29/2016 Alprazolam PO Tablets 0.5 mg given. Allergies verified, confirmed 5 rights and sedative warning given to the patient. --01:48 Lynne Guerrero R.N. DISPOSITION / DISCHARGE 03:25 10/29/16. Condition at departure: improved and stable. The goals identified in the patient's plan of care were met. No learning barriers present. Discharge instructions provided and reviewed with the patient. Patient verbalized understanding. Written instructions provided in Salvadorean. ( Follow p with your PCP in five days as needed. Discussed importance of formulating plan for dealing with anxiety and panic attacks. Patient verbalized understanding and had no additional questions at this time.). The patient was discharged by the physician. She was discharged home and accompanied by spouse. She left the Emergency Department ambulatory and via private vehicle. Spouse driving. FALL RISK ASSESSMENT: Fall risk assessment completed. No fall risk identified. --04:14 Halima Bell 03:25 10/29/16. BP: 126/82. HR: 73. RR: 20. O2 saturation: 99% on room air. Temp: 98.4 F (oral). Pain level now: 0/10. --04:14 Halima Bell. Locked/Released at 10/29/2016 4:16 by Halima Bell,
--- NOTE | 2016-10-29 03:18 | ED NURSING NOTES ---
Clinical Report - Nurses [address] [address] [place] [address] 10/29/2016 0:22 Patient: JAMAL COLLINS TRIAGE Triage time 00:26. Acuity: LEVEL 4. Chief Complaint: PALPITATIONS ("feels funny"). --00:33 Marielena Holbrook R.N. 00:24 10/29/16. BP: 153/95. HR: 88 (regular and normal rate). RR: 18 (regular and unlabored). O2 saturation: 98% on room air. Temp: 98.7 F (oral). Pain level now: 0/10. --00:33 Marielean Holbrook R.N. Weight: 73.4 kg stated. Height/Length: 61 inches Per Patient. BMI: 30.6. --00:27 Marielena Holbrook R.N. Medications Co Q 10 Oral. Multivitamin Oral. Vitamin c Oral. Vitamin D-Vitamin K Oral. Vitamin E Complete Oral. --00:31 Marielena Holbrook R.N. Allergies Cipro. ("messed up my tendons" ) Sulfa Antibiotics. (rash) --00:31 Marielena Holbrook R.N. History Arrived by EMS. Historian: patient. Unaccompanied. Primary physician (latasha). Onset. (about 1 months ago). ( has had these symptoms for several days, seen here and [facility] for same. pt dropped off holter monitor. pt under alot of stress). PAST MEDICAL HX: Immunizations: up-to-date. The patient is post-menopausal. SOCIAL HX: Never smoker. Occasional alcohol use. No drug use. No infectious disease exposure. ABUSE ASSESSMENT: No report of abuse. SELF HARM ASSESSMENT: A self harm assessment was performed. The patient answered "no" to the question "Have you recently felt down, depressed, or hopeless?", "Have you noticed less interest or pleasure in doing things?", "Do you have thoughts of harming or killing yourself?", "Are you here because you tried to hurt yourself?", "Have you ever tried to hurt yourself before today?", "Have you recently had thoughts about harming or killing others?" and "Do you have any dangerous items in your possession?". FALL RISK ASSESSMENT: Fall risk assessment completed. No fall risk identified. NUTRITIONAL RISK ASSESSMENT: The nutritional risk assessment revealed no deficiencies. FUNCTIONAL ASSESSMENT: Functional assessment: no impairments noted. LEARNING NEEDS ASSESSMENT: The learning needs assessment revealed no barriers. SKIN INTEGRITY ASSESSMENT: Skin integrity risk assessment completed. No skin integrity risk identified. --00:33 Marielena Holbrook R.N. PROBLEMS: Dyspnea. Atypical Chest Pain. Chest Pain. Gastroesophageal Reflux. Panic Attack. Anxiety Reaction. Near Syncope. Immunizations. LNMP - Last Normal Menstrual Period. Headache. Migraine Headache. --00:31 Marielena Holbrook R.N. ADDITIONAL SURGERIES: no known surgeries. PHYSICAL ASSESSMENT To room via stretcher. GENERAL / NEURO / PSYCH: Alert. Oriented X 4. Appears anxious. HEENT: Pupils equal, round and reactive to light. No facial asymmetry noted. Mucous membranes are pink. RESPIRATORY: Respirations not labored. Chest nontender. Breath sounds within normal limits. CVS: Normal sinus rhythm noted. Capillary refill less than 2 seconds. Pulses within normal limits. GI / : Abdomen soft and nontender and normal bowel sounds. SKIN: Skin intact. Skin is warm and dry. Normal skin turgor. --00:33 Marielena Holbrook R.N. NURSING PROGRESS NOTES Two patient identifiers checked. Call light placed in reach. Side rails up x 2. Bed placed in lowest position. Brakes of bed on. --00:33 Marielena Holbrook R.N. Patient ready for evaluation- chart flagged. --00:33 Marielena Holbrook R.N. 01:48 10/29/2016 Alprazolam PO Tablets 0.5 mg given. Allergies verified, confirmed 5 rights and sedative warning given to the patient. --01:48 Lynne Guerrero R.N. DISPOSITION / DISCHARGE 03:25 10/29/16. Condition at departure: improved and stable. The goals identified in the patient's plan of care were met. No learning barriers present. Discharge instructions provided and reviewed with the patient. Patient verbalized understanding. Written instructions provided in Portuguese. ( Follow p with your PCP in five days as needed. Discussed importance of formulating plan for dealing with anxiety and panic attacks. Patient verbalized understanding and had no additional questions at this time.). The patient was discharged by the physician. She was discharged home and accompanied by spouse. She left the Emergency Department ambulatory and via private vehicle. Spouse driving. FALL RISK ASSESSMENT: Fall risk assessment completed. No fall risk identified. --04:14 Halima Bell 03:25 10/29/16. BP: 126/82. HR: 73. RR: 20. O2 saturation: 99% on room air. Temp: 98.4 F (oral). Pain level now: 0/10. --04:14 Halima Bell. Locked/Released at 10/29/2016 4:16 by Halima Bell,
--- NOTE | 2016-10-29 03:18 | ED ORDER SUMMARY ---
..... Patient: JAMAL COLLINS OrderSheet [facility] VisitID: [id number] [address] [place] [address] 51y, F Registration Date/Time: 10/29/2016 ORDER SHEET Weight: 73.4 kg (stated) Allergies: Cipro, Sulfa Antibiotics GENERAL ORDERS: MEDICATION ORDERS: Alprazolam PO 0.5 mg (NOW) (01:38 10/29/2016 Tresa TORRE) (Ack 1:44 RMarsden R.N.) (1:48 RMarsden R.N.) IV FLUIDS: ORDER SHEET NOTES: [Electronically signed by Halima Bell (04:16 10/29/2016)] [Electronically signed by Horace Fung MD (23:46 10/31/2016)] [Electronically locked/signed by Halima Bell (04:16 10/29/2016)]
--- NOTE | 2016-10-29 03:18 | ED ORDER SUMMARY ---
..... Patient: JAMAL COLLINS OrderSheet [facility] VisitID: [id number] [address] [place] [address] 51y, F Registration Date/Time: 10/29/2016 ORDER SHEET Weight: 73.4 kg (stated) Allergies: Cipro, Sulfa Antibiotics GENERAL ORDERS: MEDICATION ORDERS: Alprazolam PO 0.5 mg (NOW) (01:38 10/29/2016 Tresa TORRE) (Ack 1:44 RMarsden R.N.) (1:48 RMarsden R.N.) IV FLUIDS: ORDER SHEET NOTES: [Electronically signed by Halima Bell (04:16 10/29/2016)] [Electronically signed by Horace Fung MD (23:46 10/31/2016)] [Electronically locked/signed by Halima Bell (04:16 10/29/2016)]
--- NOTE | 2016-10-31 23:46 | ED DISCHARGE INSTRUCTIONS ---
Patient: JAMAL COLLINS General Instructions [facility] VisitID: [id number] [place] [address] 51y, F Registration Date/Time: 10/29/2016 Anxiety reaction with hyperventilation. Palpitations. INSTRUCTIONS Warnings: Further evaluation is necessary. SEDATIVE MEDICATION: You were given sedative medication during your visit. Do not drive or operate dangerous machinery. GENERAL WARNINGS: Return or contact your physician immediately if your condition worsens or changes unexpectedly, if not improving as expected, or if other problems arise. Your Current Medications: CONTINUE TAKING THE FOLLOWING MEDICATIONS: Co Q 10 Oral. Multivitamin Oral. Vitamin c Oral. Vitamin D-Vitamin K Oral. Vitamin E Complete Oral. Follow-up: Follow up with your doctor in five days. Call for an appointment. Understanding of the discharge instructions verbalized by patient. Discharge instructions reviewed with and understanding was verbalized by spouse. ADDITIONAL INFORMATION Stress Reaction Anxiety is the feeling we all get when we think something bad might happen. It is a normal response to stress and usually causes only a mild reaction. When anxiety becomes more severe, emotions may interfere with daily life. In some cases, you may not even be aware of what it is youre anxious about! During an anxiety reaction, you may feel like you are helpless, nervous, depressed or irritable. Your body may show signs of anxiety in many ways. You may experience dry mouth, shakiness, dizziness, weakness, trouble breathing, chest pressure, headache, nausea, diarrhea, tiredness, inability to sleep or sexual problems. Home Care: 1) Try to locate the sources of stress in your life. They may not be obvious! These may include: -- Daily hassles of life which pile up (traffic jams, missed appointments, car troubles, etc.) -- Major life changes, both good (new baby, job promotion) and bad (loss of job, loss of loved one) -- Overload: feeling that you have too many responsibilities and can't take care of all of them at once -- Feeling helpless, feeling that your problems are beyond what youre able to solve 2) Notice how your body reacts to stress. Learn to listen to your body signals. This will help you take action before the stress becomes severe. 3) When you can, do something about the source of your stress. (Avoid hassles, limit the amount of change that happens in your life at one time and take a break when you feel overloaded). 4) Unfortunately, many stressful situations cannot be avoided. It is necessary to learn HOW TO MANAGE STRESS better. There are many proven methods that will reduce your anxiety. These include simple things like exercise, good nutrition and adequate rest. Also, there are certain techniques that are helpful: relaxation and breathing exercises, visualization, biofeedback and meditation. For more information about this, consult your doctor or go to a local bookstore and review the many books and tapes available on this subject. Follow Up If you feel that your anxiety is not responding to self-help measures, contact your doctor or make an appointment with a counselor. Get Prompt Medical Attention if any of the following occur: -- Your symptoms get worse -- Chest pain or trouble breathing -- Severe headache not relieved by rest and mild pain reliever -- Rapid or irregular heartbeat, fainting Panic Attack A panic attack is an extreme fear reaction that comes on for no apparent reason. Symptoms may include pounding or racing heartbeat, shortness of breath, dizziness, weakness and sweating. There is usually a fear that something terrible will happen or that you may . The attack may last a few minutes up to a few hours. Between attacks things will seem quite normal. This condition has a psychological cause and can be treated with the help of a therapist or psychiatrist. Medication is often used and can be very helpful for this problem. Home Care: Try to identify the sources of stress in your life. It may not be obvious! These may include: Daily hassles of life which pile up (traffic jams, missed appointments, car troubles, etc.). Major life changes, both good (new baby, job promotion) and bad (loss of job, loss of loved one). Overload: feeling that you have too many responsibilities and can't take care of everything at once. Helplessness: feeling like your problems are too much for you to handle. Notice how your body reacts to stress. Learn to listen to your body signals so that you can take action before the stress becomes severe. When possible, AVOID or REDUCE THE CAUSE OF STRESS. Avoid hassles, limit the amount of change that is happening in your life at one time or take a break when you feel overloaded. Unfortunately, many stressful situations cannot be avoided. Therefore, it is necessary to LEARN HOW TO MANAGE STRESS better. There are many proven methods that work and will reduce your anxiety. These include simple things like exercise, good nutrition and adequate rest. Also, there are certain techniques that are helpful: relaxation and breathing exercises, visualization, biofeedback, meditation or simply taking some time-out to clear your mind. For more information about this, consult your doctor or go to a local bookstore and review the many books and tapes available on this subject. Follow Up with your doctor or a therapist as advised. Get Prompt Medical Attention if any of the following occur: Worsening of your symptoms to the point of feeling [id number] A change in the type of pain: if it feels different, becomes more severe, lasts longer, or begins to spread into your shoulder, arm, neck, jaw or back Shortness of breath or increased pain with breathing Increasing feeling of weakness or dizziness Fainting Cough with dark colored sputum (phlegm) or blood Fever of 100.4F (38C) or higher, or as directed by your healthcare provider Swelling, pain or redness in one leg Hyperventilation Syndrome Hyperventilation Syndrome is a condition in which you lose control of your breathing. You may find yourself breathing too fast and/or too deep. This can be triggered by pain, anxiety and emotional stress. If hyperventilation continues for more than a few minutes, it can lead to a number of frightening symptoms, such as: Numbness and tingling of the hands, feet and face Clenching of the fingers or toes Dizziness Feeling like you cannot get enough air Chest pains Fainting or feeling like you are going to faint Once these symptoms begin, it is often hard to stop them because they lead to a cycle of more anxiety and more hyperventilation. It is important to understand that this is not a life-threatening condition and it will pass once you are able to relax. Relaxation and stress management methods can be learned and practiced in advance. These can help in the event of a future attack. Home Care: 1) Rest today until feeling back to normal. 2) If symptoms return: Sit or lie down. Remember that what is happening to you is temporary and will pass. Use the relaxation methods you have learned. It is no longer recommended to breathe into a paper bag. Follow Up with your doctor or as directed by our staff if symptoms recur. Get Prompt Medical Attention if any of the following occur: Increasing shortness of breath Fever of 100.0 F (38 C) or higher, or as directed by your healthcare provider Coughing up blood Chest pain that is made worse with each breath Redness, pain or swelling of the leg Ringing in your ears, Severe headache Weakness or fainting You have been given the following additional information: Anxiety Reaction Panic Attack Hyperventilation Syndrome (Electronically signed by Horace Fung MD 10/31/2016 23:46)
--- NOTE | 2016-10-31 23:46 | ED MAR SUMMARY ---
..... Medication Administration Record [facility] [address] [place] [address] Patient: JAMAL COLLINS Visit ID: [id number] 51y, F Weight: 73.4 kg Height/Length: 61 in BMI: 30.6 ALLERGIES: Cipro, Sulfa Antibiotics Given 01:48 10/29/2016 Lynne Guerrero, RRobelNRobel Medication Administered: ALPRAZOLAM [PO], Dose: 0.5 mg Tablets PO. Medication Ordered: Alprazolam PO 0.5 mg (NOW).
--- NOTE | 2016-10-31 23:46 | ED MAR SUMMARY ---
..... Medication Administration Record [facility] [address] [place] [address] Patient: JAMAL COLLINS Visit ID: [id number] 51y, F Weight: 73.4 kg Height/Length: 61 in BMI: 30.6 ALLERGIES: Cipro, Sulfa Antibiotics Given 01:48 10/29/2016 Lynne Guerrero, RRobelNRobel Medication Administered: ALPRAZOLAM [PO], Dose: 0.5 mg Tablets PO. Medication Ordered: Alprazolam PO 0.5 mg (NOW).
--- NOTE | 2016-10-31 23:46 | ED MED RECONCILIATION SUMMARY ---
Patient: JAMAL COLLINS Medication Reconciliation Report [facility] VisitID: [id number] [address] [place] [address] 51y, F Registration Date/Time: 10/29/2016 Weight: 73.4 kg Height/Length: 61 in. BMI: 30.6 ALLERGIES: Cipro, Sulfa Antibiotics The patient's Home Medications are listed below: CONTINUE TAKING THE FOLLOWING MEDICATIONS: Co Q 10 Oral Multivitamin Oral Vitamin c Oral Vitamin D-Vitamin K Oral Vitamin E Complete Oral The source(s) of the original Home Medication information: Not obtained. The following Medications were given to the patient in the Emergency Department: Alprazolam [PO] PO 0.5 mg, administered: 10/29/2016 1:48:00 AM The following Medications were prescribed to the patient: None.
--- NOTE | 2016-10-31 23:46 | ED MED RECONCILIATION SUMMARY ---
Patient: JAMAL COLLINS Medication Reconciliation Report [facility] VisitID: [id number] [address] [place] [address] 51y, F Registration Date/Time: 10/29/2016 Weight: 73.4 kg Height/Length: 61 in. BMI: 30.6 ALLERGIES: Cipro, Sulfa Antibiotics The patient's Home Medications are listed below: CONTINUE TAKING THE FOLLOWING MEDICATIONS: Co Q 10 Oral Multivitamin Oral Vitamin c Oral Vitamin D-Vitamin K Oral Vitamin E Complete Oral The source(s) of the original Home Medication information: Not obtained. The following Medications were given to the patient in the Emergency Department: Alprazolam [PO] PO 0.5 mg, administered: 10/29/2016 1:48:00 AM The following Medications were prescribed to the patient: None.
== END 2016-10-29 03:25 | disposition home or self-care (01) ==
LOC: ED SRH 00:22
DX: F41.1 Generalized anxiety disorder (principal); R00.2 Palpitations; R06.4 Hyperventilation; K21.9 Gastro-esophageal reflux disease without esophagitis

== ENCOUNTER 2016-11-15 23:23 | Emergency (ER) | payer OTHER ==
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
--- NOTE | 2016-11-16 03:42 | ED ORDER SUMMARY ---
..... Patient: JAMAL COLLINS OrderSheet [facility] VisitID: [id number] [place] [address] 51y, F Registration Date/Time: 11/15/2016 ORDER SHEET Weight: 73.0 kg (stated) Allergies: Cipro, Sulfa Antibiotics GENERAL ORDERS: Chest 1V Urgent (02:03 11/16/2016 Vu TORRE) (Ack 2:08 AMcQuoid ER Tech1) (2:17 CBradburn R.N.) Geophysics Professor (Continuous) (02:03 11/16/2016 Vu TORRE) (Ack 2:08 AMcQuoid ER Tech1) (2:41 RCollier R.N.) Cardiac Panel Stat (02:03 11/16/2016 Vu TORRE) (Ack 2:08 AMcQuoid ER Tech1) (2:17 CBradburn R.N.) BNP Urgent (02:03 11/16/2016 Vu TORRE) (Ack 2:08 AMcQuoid ER Tech1) (2:17 CBradburn R.N.) TSH Urgent (02:03 11/16/2016 Vu TORRE) (Ack 2:08 AMcQuoid ER Tech1) (2:17 Yolyburn R.N.) Pulse oximeter (02:03 11/16/2016 Vu TORRE) (Ack 2:08 AMcQuoid ER Tech1) (2:41 RCollier R.N.) EKG - ER Stat (02:03 11/16/2016 Vu TORRE) (Ack 2:08 AMcQuoid ER Tech1) (2:52 AMcQuoid ER Tech1) MEDICATION ORDERS: IV FLUIDS: IV Saline Lock (02:03 11/16/2016 Vu TORRE) (Ack 2:08 Cydneyier R.N.) (2:17 CBolga R.N.) ORDER SHEET NOTES: [Electronically signed by Marielena Holbrook R.N. (03:54 11/16/2016)] [Electronically signed by Yanira Batres MD (13:21 11/22/2016)] [Electronically locked/signed by Marielena Holbrook R.N. (03:54 11/16/2016)]
--- NOTE | 2016-11-16 03:42 | ED ORDER SUMMARY ---
..... Patient: JAMAL COLLINS OrderSheet [facility] VisitID: [id number] [place] [address] 51y, F Registration Date/Time: 11/15/2016 ORDER SHEET Weight: 73.0 kg (stated) Allergies: Cipro, Sulfa Antibiotics GENERAL ORDERS: Chest 1V Urgent (02:03 11/16/2016 Vu TORRE) (Ack 2:08 AMcQuoid ER Tech1) (2:17 CBradburn R.N.) Looseleaf Binder Coverer (Continuous) (02:03 11/16/2016 Vu TORRE) (Ack 2:08 AMcQuoid ER Tech1) (2:41 RCollier R.N.) Cardiac Panel Stat (02:03 11/16/2016 Vu TORRE) (Ack 2:08 AMcQuoid ER Tech1) (2:17 CBradburn R.N.) BNP Urgent (02:03 11/16/2016 Vu TORRE) (Ack 2:08 AMcQuoid ER Tech1) (2:17 CBradburn R.N.) TSH Urgent (02:03 11/16/2016 Vu TORRE) (Ack 2:08 AMcQuoid ER Tech1) (2:17 Yolyburn R.N.) Pulse oximeter (02:03 11/16/2016 Vu TORRE) (Ack 2:08 AMcQuoid ER Tech1) (2:41 RCollier R.N.) EKG - ER Stat (02:03 11/16/2016 Vu TORRE) (Ack 2:08 AMcQuoid ER Tech1) (2:52 AMcQuoid ER Tech1) MEDICATION ORDERS: IV FLUIDS: IV Saline Lock (02:03 11/16/2016 Vu TORRE) (Ack 2:08 Cydneyier R.N.) (2:17 CBolga R.N.) ORDER SHEET NOTES: [Electronically signed by Marielena Holbrook R.N. (03:54 11/16/2016)] [Electronically signed by Yanira Batres MD (13:21 11/22/2016)] [Electronically locked/signed by Marielena Holbrook R.N. (03:54 11/16/2016)]
--- NOTE | 2016-11-16 07:26 | DIAGNOSTIC IMAGING REPORT ---
PROCEDURE: XR CHEST 1 VIEW INDICATION: SHORTNESS OF BREATH TECHNIQUE: Single view chest. 02:14 hours COMPARISON: 10/27/2016 FINDINGS: The cardiopulmonary contour and central vasculature are stable, within normal limits. The lungs are clear without focal consolidation, pleural effusion or pneumothorax. The osseous structures are intact. IMPRESSION: 1. No evidence of acute cardiopulmonary disease.
--- NOTE | 2016-11-22 13:21 | ED MAR SUMMARY ---
..... Medication Administration [facility] [address] [place], [place] [id number] Patient: JAMAL COLLINS Visit ID: [id number] 51y, F Weight: 73.0 kg Height/Length: 61 in BMI: 30.4 ALLERGIES: Cipro, Sulfa Antibiotics
--- NOTE | 2016-11-22 13:21 | ED DISCHARGE INSTRUCTIONS ---
Patient: JAMAL COLLINS General Instructions [facility] VisitID: [id number] [address] [place] [address] 51y, F Registration Date/Time: 11/15/2016 Chronic generalized weakness. (with acute exacerbation). Anxiety reaction. INSTRUCTIONS (Your labs and EKG look very good. If you are concerned about your adrenal glands, please talk to Dr. Diaz about a referral to an teaching dietitian.). Warnings: Further evaluation is necessary. GENERAL WARNINGS: Return or contact your physician immediately if your condition worsens or changes unexpectedly, if not improving as expected, or if other problems arise. Your Current Medications: CONTINUE TAKING THE FOLLOWING MEDICATIONS: Co Q 10 Oral. LORazepam Oral : Tablet 0.5 mg, 1/2 tablet PRN, Last: 3 days ago. Magnesium Oral. Metoprolol Tartrate Oral : Tablet 25 mg, 1 tablet twice daily, new RX, does not take. Multivitamin Oral. Paxil Oral : Tablet 10 mg, 1 tablet daily, has not started taking due to fear of side effects. Vitamin c Oral. Vitamin D-Vitamin K Oral. Vitamin E Complete Oral. Understanding of the discharge instructions verbalized by patient. Follow-up with: Sadiq Diaz MD, [facility], , [address] [place] [id number] Follow up. Call for the next available appointment. Reason for referral: Follow up concerns and ER visit. ADDITIONAL INFORMATION Stress Reaction Anxiety is the feeling we all get when we think something bad might happen. It is a normal response to stress and usually causes only a mild reaction. When anxiety becomes more severe, emotions may interfere with daily life. In some cases, you may not even be aware of what it is youre anxious about! During an anxiety reaction, you may feel like you are helpless, nervous, depressed or irritable. Your body may show signs of anxiety in many ways. You may experience dry mouth, shakiness, dizziness, weakness, trouble breathing, chest pressure, headache, nausea, diarrhea, tiredness, inability to sleep or sexual problems. Home Care: 1) Try to locate the sources of stress in your life. They may not be obvious! These may include: -- Daily hassles of life which pile up (traffic jams, missed appointments, car troubles, etc.) -- Major life changes, both good (new baby, job promotion) and bad (loss of job, loss of loved one) -- Overload: feeling that you have too many responsibilities and can't take care of all of them at once -- Feeling helpless, feeling that your problems are beyond what youre able to solve 2) Notice how your body reacts to stress. Learn to listen to your body signals. This will help you take action before the stress becomes severe. 3) When you can, do something about the source of your stress. (Avoid hassles, limit the amount of change that happens in your life at one time and take a break when you feel overloaded). 4) Unfortunately, many stressful situations cannot be avoided. It is necessary to learn HOW TO MANAGE STRESS better. There are many proven methods that will reduce your anxiety. These include simple things like exercise, good nutrition and adequate rest. Also, there are certain techniques that are helpful: relaxation and breathing exercises, visualization, biofeedback and meditation. For more information about this, consult your doctor or go to a local bookstore and review the many books and tapes available on this subject. Follow Up If you feel that your anxiety is not responding to self-help measures, contact your doctor or make an appointment with a counselor. Get Prompt Medical Attention if any of the following occur: -- Your symptoms get worse -- Chest pain or trouble breathing -- Severe headache not relieved by rest and mild pain reliever -- Rapid or irregular heartbeat, fainting Panic Attack A panic attack is an extreme fear reaction that comes on for no apparent reason. Symptoms may include pounding or racing heartbeat, shortness of breath, dizziness, weakness and sweating. There is usually a fear that something terrible will happen or that you may . The attack may last a few minutes up to a few hours. Between attacks things will seem quite normal. This condition has a psychological cause and can be treated with the help of a therapist or psychiatrist. Medication is often used and can be very helpful for this problem. Home Care: Try to identify the sources of stress in your life. It may not be obvious! These may include: Daily hassles of life which pile up (traffic jams, missed appointments, car troubles, etc.). Major life changes, both good (new baby, job promotion) and bad (loss of job, loss of loved one). Overload: feeling that you have too many responsibilities and can't take care of everything at once. Helplessness: feeling like your problems are too much for you to handle. Notice how your body reacts to stress. Learn to listen to your body signals so that you can take action before the stress becomes severe. When possible, AVOID or REDUCE THE CAUSE OF STRESS. Avoid hassles, limit the amount of change that is happening in your life at one time or take a break when you feel overloaded. Unfortunately, many stressful situations cannot be avoided. Therefore, it is necessary to LEARN HOW TO MANAGE STRESS better. There are many proven methods that work and will reduce your anxiety. These include simple things like exercise, good nutrition and adequate rest. Also, there are certain techniques that are helpful: relaxation and breathing exercises, visualization, biofeedback, meditation or simply taking some time-out to clear your mind. For more information about this, consult your doctor or go to a local bookstore and review the many books and tapes available on this subject. Follow Up with your doctor or a therapist as advised. Get Prompt Medical Attention if any of the following occur: Worsening of your symptoms to the point of feeling [id number] A change in the type of pain: if it feels different, becomes more severe, lasts longer, or begins to spread into your shoulder, arm, neck, jaw or back Shortness of breath or increased pain with breathing Increasing feeling of weakness or dizziness Fainting Cough with dark colored sputum (phlegm) or blood Fever of 100.4F (38C) or higher, or as directed by your healthcare provider Swelling, pain or redness in one leg Weakness [Uncertain Cause] Based on your exam today, the exact cause of your weakness is not certain. However, your weakness does not seem to be a sign of a serious illness at this time. Sometimes the signs of a serious illness take more time to appear. Therefore, please watch for the warning signs listed below. Home Care: 1) Rest at home today. Do not over-exert yourself. 2) Take your medicine as prescribed. 3) For the next few days, drink extra fluids (unless your doctor wants you to restrict fluids for other reasons). Do not skip meals. Follow Up with your doctor or as advised if you are not starting to feel better within TWO days. Get Prompt Medical Attention if any of the following occur: Worsening of your symptoms Chest, arm, neck, jaw or upper back pain Dizziness or fainting Trouble breathing Unable to eat or drink normal amounts Nausea, frequent vomiting, frequent diarrhea Abdominal pain Numbness or weakness of the face, one arm or one leg Slurred speech, confusion, trouble speaking, walking or seeing Blood in vomit or stool (black or red color) Fever of 100.4 F (38 C) or higher, or as directed by your healthcare provider You have been given the following additional information: Anxiety Reaction Panic Attack Weakness, Unk Cause (Electronically signed by Yanira Batres MD 11/22/2016 13:21)
--- NOTE | 2016-11-22 13:21 | ED MED RECONCILIATION SUMMARY ---
Patient: JAMAL COLLINS Medication Reconciliation Report [facility] VisitID: [id number] [address] [place] [address] 51y, F Registration Date/Time: 11/15/2016 Weight: 73.0 kg Height/Length: 61 in. BMI: 30.4 ALLERGIES: Cipro, Sulfa Antibiotics The patient's Home Medications are listed below: CONTINUE TAKING THE FOLLOWING MEDICATIONS: Co Q 10 Oral LORazepam Oral (0.5 mg) 1/2 tablet, PRN, last dose: 3 days ago Magnesium Oral Metoprolol Tartrate Oral (25 mg) 1 tablet, twice daily, new RX, does not take Multivitamin Oral Paxil Oral (10 mg) 1 tablet, daily, has not started taking due to fear of side effects Vitamin c Oral Vitamin D-Vitamin K Oral Vitamin E Complete Oral The source(s) of the original Home Medication information: Not obtained. The following Medications were given to the patient in the Emergency Department: None. The following Medications were prescribed to the patient: None.
--- NOTE | 2016-11-22 13:21 | ED MED RECONCILIATION SUMMARY ---
Patient: JAMAL COLLINS Medication Reconciliation Report [facility] VisitID: [id number] [address] [place] [address] 51y, F Registration Date/Time: 11/15/2016 Weight: 73.0 kg Height/Length: 61 in. BMI: 30.4 ALLERGIES: Cipro, Sulfa Antibiotics The patient's Home Medications are listed below: CONTINUE TAKING THE FOLLOWING MEDICATIONS: Co Q 10 Oral LORazepam Oral (0.5 mg) 1/2 tablet, PRN, last dose: 3 days ago Magnesium Oral Metoprolol Tartrate Oral (25 mg) 1 tablet, twice daily, new RX, does not take Multivitamin Oral Paxil Oral (10 mg) 1 tablet, daily, has not started taking due to fear of side effects Vitamin c Oral Vitamin D-Vitamin K Oral Vitamin E Complete Oral The source(s) of the original Home Medication information: Not obtained. The following Medications were given to the patient in the Emergency Department: None. The following Medications were prescribed to the patient: None.
--- NOTE | 2016-11-22 13:21 | ED MAR SUMMARY ---
..... Medication Administration Record [facility] [address] [place], [place] [id number] Patient: JAMAL COLLINS Visit ID: [id number] 51y, F Weight: 73.0 kg Height/Length: 61 in BMI: 30.4 ALLERGIES: Cipro, Sulfa Antibiotics
== END 2016-11-16 03:50 | disposition home or self-care (01) ==
LOC: ED SRH 23:23
DX: R53.1 Weakness (principal); F41.9 Anxiety disorder, unspecified; K21.9 Gastro-esophageal reflux disease without esophagitis; Z88.1 Allergy status to other antibiotic agents; Z88.2 Allergy status to sulfonamides
CPT/HCPCS: 90100; 90616; 91320; 92610; 92720; 93140; 95059

== ENCOUNTER 2016-11-22 12:26 | Emergency (ER) | payer OTHER ==
--- NOTE | 2016-11-22 13:53 | DIAGNOSTIC IMAGING REPORT ---
PROCEDURE: XR CHEST 2 VIEW INDICATION: CHEST PAIN TECHNIQUE: PA and lateral views. COMPARISON: Chest 11/16/2016 FINDINGS: Lungs are clear. Heart and mediastinum are normal. Thorax is normal. IMPRESSION: 1. Negative chest.
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
--- NOTE | 2016-11-22 14:18 | ED ORDER SUMMARY ---
..... Patient: JAMAL COLLINS OrderSheet [facility] VisitID: [id number] [place] [address] 51y, F Registration Date/Time: 11/22/2016 ORDER SHEET Weight: 72.5 kg (stated) Allergies: Cipro, Sulfa Antibiotics GENERAL ORDERS: Chest 2V Urgent (12:49 11/22/2016 [facility] (Ack 12:52 PWeiler ER Tech1) (13:41 JBoardley R.N.) Medical Lab Specialist (Continuous) (12:49 [facility]/22/2016 [facility] (12:57 JBoardley R.N.) UA-Culture if indicated Urgent (12:50 [facility]/22/2016 [facility] ) (Ack 12:52 PWeiler ER Tech1) (13:23 JBoardley R.N.) Cardiac Panel Stat (12:50 11/22/2016 [facility]) (Ack 12:52 PWeiler ER Tech1) (13:23 JBoardley R.N.) BNP Urgent (12:50 [facility]/2016 [facility] (Ack 12:52 PWeiler ER Tech1) (13:23 JBoardley R.N.) D-Dimer Urgent (12:50 11/22/2016 [facility]) (Ack 12:52 PWeiler ER Tech1) (13:23 JBoardley R.N.) Amylase Urgent (12:50 11/22/2016 [facility] DO) (Ack 12:52 PWeiler ER Tech1) (13:23 JBoardley R.N.) TSH Urgent (12:50 11/22/2016 [facility] DO) (Ack 12:52 PWeiler ER Tech1) (13:23 JBoardley R.N.) Urine Urgent (12:50 11/22/2016 [facility]) (Ack 12:52 PWeiler ER Tech1) (13:23 JBoardley R.N.) Urine Drug Screen Urgent (12:50 11/22/2016 [facility]) (Ack 12:52 PWeiler ER Tech1) (13:23 JBoardley R.N.) Lipase Urgent (12:50 11/22/2016 [facility]) (Ack 12:52 PWeiler ER Tech1) (13:23 JBoardley R.N.) Pulse oximeter (12:50 11/22/2016 [facility]) (12:57 JBoardley R.N.) EKG - ER Stat (12:50 11/22/2016 [facility]) (12:57 JBoardley R.N.) Vitals (12:50 11/22/2016 [facility]) (12:57 JBoardley R.N.) MEDICATION ORDERS: IV FLUIDS: IV NS : initial bolus 1000 mL (1000 mL/hr), then 500 mL/hr for X2 (NOW) (12:50 11/22/2016 [facility]) (Ack 12:53 JBoardley R.N.) (13:24 JBoardley R.N.) Ativan IV 1 mg (HIGH ALERT MEDICATION, NOW) (13:01 11/22/2016 [facility]) (Ack 13:01 JBoardley R.N.) (13:24 JBoardley R.N.) ORDER SHEET NOTES: [Electronically signed by Vadim Hahn R.N. (16:10 11/22/2016)] [Electronically signed by Pablo Urbina DO (09:58 11/23/2016)] [Electronically locked/signed by Vadim Hahn R.N. (16:10 11/22/2016)]
--- NOTE | 2016-11-22 14:18 | ED ORDER SUMMARY ---
..... Patient: JAMAL COLLINS OrderSheet [facility] VisitID: [id number] [place] [address] 51y, F Registration Date/Time: 11/22/2016 ORDER SHEET Weight: 72.5 kg (stated) Allergies: Cipro, Sulfa Antibiotics GENERAL ORDERS: Chest 2V Urgent (12:49 11/22/2016 [facility]) (Ack 12:52 PWeiler ER Tech1) (13:41 JBoardley R.N.) Seed Production Field Supervisor (Continuous) (12:49 11/22/2016 [facility]) (12:57 JBoardley R.N.) UA-Culture if indicated Urgent (12:50 [facility]/22/2016 [facility] ) (Ack 12:52 PWeiler ER Tech1) (13:23 JBoardley R.N.) Cardiac Panel Stat (12:50 11/22/2016 [facility]) (Ack 12:52 PWeiler ER Tech1) (13:23 JBoardley R.N.) BNP Urgent (12:50 [facility]/22/2016 [facility] (Ack 12:52 PWeiler ER Tech1) (13:23 JBoardley R.N.) D-Dimer Urgent (12:50 11/22/2016 [facility]) (Ack 12:52 PWeiler ER Tech1) (13:23 JBoardley R.N.) Amylase Urgent (12:50 11/22/2016 [facility] DO) (Ack 12:52 PWeiler ER Tech1) (13:23 JBoardley R.N.) TSH Urgent (12:50 11/22/2016 [facility] DO) (Ack 12:52 PWeiler ER Tech1) (13:23 JBoardley R.N.) Urine Urgent (12:50 11/22/2016 [facility]) (Ack 12:52 PWeiler ER Tech1) (13:23 JBoardley R.N.) Urine Drug Screen Urgent (12:50 11/22/2016 [facility]) (Ack 12:52 PWeiler ER Tech1) (13:23 JBoardley R.N.) Lipase Urgent (12:50 11/22/2016 [facility]) (Ack 12:52 PWeiler ER Tech1) (13:23 JBoardley R.N.) Pulse oximeter (12:50 11/22/2016 [facility]) (12:57 JBoardley R.N.) EKG - ER Stat (12:50 11/22/2016 [facility]) (12:57 JBoardley R.N.) Vitals (12:50 11/22/2016 [facility]) (12:57 JBoardley R.N.) MEDICATION ORDERS: IV FLUIDS: IV NS : initial bolus 1000 mL (1000 mL/hr), then 500 mL/hr for X2 (NOW) (12:50 11/22/2016 [facility]) (Ack 12:53 JBoardley R.N.) (13:24 JBoardley R.N.) Ativan IV 1 mg (HIGH ALERT MEDICATION, NOW) (13:01 11/22/2016 [facility]) (Ack 13:01 JBoardley R.N.) (13:24 JBoardley R.N.) ORDER SHEET NOTES: [Electronically signed by Vadim Hahn R.N. (16:10 11/22/2016)] [Electronically signed by Pablo Urbina DO (09:58 11/23/2016)] [Electronically locked/signed by Vadim Hahn R.N. (16:10 11/22/2016)]
--- NOTE | 2016-11-23 09:58 | ED DISCHARGE INSTRUCTIONS ---
Patient: JAMAL COLLINS General Instructions [facility] VisitID: [id number] [place] [address] 51y, F Registration Date/Time: 11/22/2016 Essential hypertension. Thyroid nodule on prior CT scan. INSTRUCTIONS Stay with responsible adult family member (or other responsible adult). Do not work for five days. Drink plenty of fluids. No alcohol. (You may take 1/2 to 1 tablet of your anxiety medication as needed, as directed for anxiety.). Warnings: Further evaluation is necessary in order to conduct further tests (There was a thyroid nodule noted on your prior CT scan - this will need to be followed up and monitored by your doctor). It is very important to follow up with a physician. SEDATIVE MEDICATION: You were given sedative medication during your visit. Do not drive or operate dangerous machinery. CONTROLLED SUBSTANCE WARNINGS. GENERAL WARNINGS: Return or contact your physician immediately if your condition worsens or changes unexpectedly, if not improving as expected, or if other problems arise. Your Current Medications: CONTINUE TAKING THE FOLLOWING MEDICATIONS: Co Q 10 Oral. LORazepam Oral : Tablet 0.5 mg, 1/2 tablet PRN, Last: 3 days ago. Magnesium Oral. Metoprolol Tartrate Oral : Tablet 25 mg, 1 tablet twice daily, new RX, does not take. Multivitamin Oral. Paxil Oral : Tablet 10 mg, 1 tablet daily, has not started taking due to fear of side effects. Vitamin c Oral. Vitamin D-Vitamin K Oral. Vitamin E Complete Oral. Follow-up: Follow up with your doctor tomorrow. Follow up with a psychiatrist- as recommended by your primary care physician- tomorrow. Screening today revealed the patient's blood pressure to be in the hypertensive range. The patient should follow up with a primary care provider for blood pressure management. ADDITIONAL INFORMATION High Blood Pressure -- To Be Confirmed [No Tx] Your blood pressure was higher today than normal. Sometimes anxiety or pain can cause a temporary rise in blood pressure that later returns to normal. If your blood pressure is high on one measurement, this does not mean that you have hypertension (a chronic illness). However, you must have your blood pressure measured again within the next few days to find out if its still high. A normal blood pressure is 120/80 or less. The first (top) number is the "systolic" pressure. The second (bottom) number is the "diastolic" pressure. Hypertension exists when either the top number is 140 or higher, OR the bottom number is 90 or higher on repeated measurements. Blood pressure in the range of 120-140 (systolic) or 80-89 (diastolic) is considered "pre-hypertension". This means your are at risk for getting hypertension. You should have regular blood pressure checks to be sure your blood pressure is not rising. Home Care: Measure your blood pressure on 3 different days and write down the results. This can be done at your doctor's office or this facility. Some pharmacies and grocery stores offer automated blood pressure machines for your use. Follow Up: If your blood pressure is "high" (over 120/80) on 2 out of 3 days, you will need to follow up with your doctor for further evaluation and treatment. DO NOT PUT THIS OFF! Untreated high blood pressure increases the risk for heart attack, also known as acute myocardial infarction, or AMI, and stroke. It is a treatable condition. Get Prompt Medical Attention if any of the following occur: Chest pain or shortness of breath Severe headache Throbbing or rushing sound in the ears Nosebleed Sudden severe abdominal pain Extreme drowsiness, confusion or fainting Dizziness or vertigo (dizziness with spinning sensation) Weakness of an arm or leg or one side of the face Difficulty with speech or vision You have been given the following additional information: Hypertension, To Be Confirmed Stay with responsible adult family member (or other responsible adult). Do not work for five days. (Electronically signed by Pablo Urbina DO 11/23/2016 9:58)
--- NOTE | 2016-11-23 09:58 | ED MAR SUMMARY ---
..... Medication Administration Record [facility] [address] [place] [address] Patient: JAMAL COLLINS Visit ID: [id number] 51y, F Weight: 72.5 kg Height/Length: 61 in BMI: 30.2 ALLERGIES: Cipro, Sulfa Antibiotics Start 13:11/22/2016 Vadim Hahn R.N. Medication Administered: IV NS (SALINE), Dose: IV Fluids over 1 hour(s), Rate: 1000 mL/hr, Dispensed: 1000 mL bag, Site: #1 left AC. Medication Ordered: IV NS : initial bolus 1000 mL (1000 mL/hr), then 500 mL/hr for X2 (NOW). Given 11/22/2016 Vadim Hahn R.N. Medication Administered: ATIVAN [IVP] (LORAZEPAM), Dose: 0.25 mg IVP over 1 minute(s), Site: #1 left AC. Medication Ordered: Ativan IV 1 mg (HIGH ALERT MEDICATION, NOW). Given :11/22/2016 Vadim Hahn R.N. Medication Administered: ATIVAN [IVP] (LORAZEPAM), Dose: 0.25 mg IVP over 2 minute(s), Site: #1 left AC. Medication Ordered: Ativan IV 1 mg (HIGH ALERT MEDICATION, NOW).
--- NOTE | 2016-11-23 09:58 | ED MED RECONCILIATION SUMMARY ---
Patient: JAMAL COLLINS Medication Reconciliation Report [facility] VisitID: [id number] [address] [place] [address] 51y, F Registration Date/Time: 11/22/2016 Weight: 72.5 kg Height/Length: 61 in. BMI: 30.2 ALLERGIES: Cipro, Sulfa Antibiotics The patient's Home Medications are listed below: CONTINUE TAKING THE FOLLOWING MEDICATIONS: Co Q 10 Oral LORazepam Oral (0.5 mg) 1/2 tablet, PRN, last dose: 3 days ago Magnesium Oral Metoprolol Tartrate Oral (25 mg) 1 tablet, twice daily, new RX, does not take Multivitamin Oral Paxil Oral (10 mg) 1 tablet, daily, has not started taking due to fear of side effects Vitamin c Oral Vitamin D-Vitamin K Oral Vitamin E Complete Oral The source(s) of the original Home Medication information: patient The following Medications were given to the patient in the Emergency Department: IV NS IV Fluids bolus 0, then 1000 mL/hr, administered: 11/22/2016 1:24:00 PM Ativan [IVP] IVP 0.25 mg, administered: 11/22/2016 1:24:00 PM Ativan [IVP] IVP 0.25 mg, administered: 11/22/2016 2:06:00 PM The following Medications were prescribed to the patient: None.
--- NOTE | 2016-11-23 09:58 | ED MED RECONCILIATION SUMMARY ---
Patient: JAMAL COLLINS Medication Reconciliation Report [facility] VisitID: [id number] [address] [place] [address] 51y, F Registration Date/Time: 11/22/2016 Weight: 72.5 kg Height/Length: 61 in. BMI: 30.2 ALLERGIES: Cipro, Sulfa Antibiotics The patient's Home Medications are listed below: CONTINUE TAKING THE FOLLOWING MEDICATIONS: Co Q 10 Oral LORazepam Oral (0.5 mg) 1/2 tablet, PRN, last dose: 3 days ago Magnesium Oral Metoprolol Tartrate Oral (25 mg) 1 tablet, twice daily, new RX, does not take Multivitamin Oral Paxil Oral (10 mg) 1 tablet, daily, has not started taking due to fear of side effects Vitamin c Oral Vitamin D-Vitamin K Oral Vitamin E Complete Oral The source(s) of the original Home Medication information: patient The following Medications were given to the patient in the Emergency Department: IV NS IV Fluids bolus 0, then 1000 mL/hr, administered: 11/22/2016 1:24:00 PM Ativan [IVP] IVP 0.25 mg, administered: 11/22/2016 1:24:00 PM Ativan [IVP] IVP 0.25 mg, administered: 11/22/2016 2:06:00 PM The following Medications were prescribed to the patient: None.
--- NOTE | 2016-11-23 09:58 | ED MAR SUMMARY ---
..... Medication Administration Record [facility] [address] [place] [address] Patient: JAMAL COLLINS Visit ID: [id number] 51y, F Weight: 72.5 kg Height/Length: 61 in BMI: 30.2 ALLERGIES: Cipro, Sulfa Antibiotics Start 13:11/22/2016 Vadim Hahn R.N. Medication Administered: IV NS (SALINE), Dose: IV Fluids over 1 hour(s), Rate: 1000 mL/hr, Dispensed: 1000 mL bag, Site: #1 left AC. Medication Ordered: IV NS : initial bolus 1000 mL (1000 mL/hr), then 500 mL/hr for X2 (NOW). Given 11/22/2016 Vadim Hahn R.N. Medication Administered: ATIVAN [IVP] (LORAZEPAM), Dose: 0.25 mg IVP over 1 minute(s), Site: #1 left AC. Medication Ordered: Ativan IV 1 mg (HIGH ALERT MEDICATION, NOW). Given :11/22/2016 Vadim Hahn R.N. Medication Administered: ATIVAN [IVP] (LORAZEPAM), Dose: 0.25 mg IVP over 2 minute(s), Site: #1 left AC. Medication Ordered: Ativan IV 1 mg (HIGH ALERT MEDICATION, NOW).
== END 2016-11-22 14:55 | disposition home or self-care (01) ==
LOC: ED SRH 12:26
DX: I10 Essential (primary) hypertension (principal); E04.1 Nontoxic single thyroid nodule; K21.9 Gastro-esophageal reflux disease without esophagitis; Z79.899 Other long term (current) drug therapy; Z88.1 Allergy status to other antibiotic agents; Z88.2 Allergy status to sulfonamides
CPT/HCPCS: 90004; 90074; 90100; 90616; 91320; 91556; 92235; 92530; 92610; 92720; 92760; 92761; 92762; 92763; 92764; 92765; 92766; 92767; 93070; 93140; 95059

== ENCOUNTER 2016-11-25 09:29 | Emergency (ER) | payer OTHER ==
--- NOTE | 2016-11-25 11:10 | ED CLINICAL REPORT ---
Clinical Report - Physicians/Mid Levels [facility] [address] [place] [address] 11/25/2016 9:31 Patient: JAMAL COLLINS Time Seen: 10:16. Arrived- By private vehicle. Historian- patient. HISTORY OF PRESENT ILLNESS Chief Complaint: ANXIOUS. This started last night. The patient has experienced situational problems related to spouse. (She reports that she feels like she is having "shallow" breathing because she started taking Paxil last night. She also reports she takes ativan and that when she took it this morning she tried to sleep and "my breathing got really shallow and stopped." Pt also reports she is having panic attacks and is under stress). Has not been sleeping. She has had anxiety. No suicidal thoughts. The symptoms are described as severe. Recent medical care: The patient was seen recently by a health care provider. Seen for similar symptoms. Diagnosis: (anxiety). ( Essential hypertension. Thyroid nodule on prior CT scan.). REVIEW OF SYSTEMS No chills, fever, sweats, calf pain or chest pain. No cough, pedal edema, palpitations, abdominal pain or constipation. No diarrhea, nausea, vomiting or urinary problems. She has had difficulty breathing. All systems otherwise negative, except as recorded above. SOCIAL HISTORY Never smoker. No alcohol use or drug use. FAMILY HISTORY Family medical history is unknown due to adoption. ADDITIONAL NOTES The nursing notes have been reviewed. PHYSICAL EXAM Vital Signs: 11/25/2016 09:36 BP: 139/83. HR: 81. RR: 16. O2 saturation: 98%. Temp: 98.3 F. Pain level now: 0/10. Have been reviewed. Appearance: Alert. Patient in apparent distress due to anxiety. Anxious. Eyes: Pupils equal, round and reactive to light. Neck: Normal inspection. Neck supple. No carotid bruit. CVS: Normal heart rate and rhythm. Heart sounds normal. Respiratory: Breath sounds normal. Abdomen: Soft and nontender. Back: No tenderness. Skin: Skin warm and dry. Normal skin color. Normal skin turgor. Extremities: Extremities exhibit normal ROM. No calf tenderness. No lower extremity edema. Psych / Neuro: Denies suicidal thoughts. She expresses obsessions and compulsions. Cranial nerves normal (as tested). No motor deficit. No sensory deficit. LABS, X-RAYS, AND EKG EKG: No acute process. Rate: 85. Changes present when compared to prior EKG. (22 November 2016). The study has been independently viewed by me. PROGRESS AND PROCEDURES Course of Care: Patient is stable. Patient/family counseled. Old medical records reviewed. Disposition: Discharged. Condition: stable. CLINICAL IMPRESSION Anxiety reaction. INSTRUCTIONS Warnings: Further evaluation is necessary. GENERAL WARNINGS: Return or contact your physician immediately if your condition worsens or changes unexpectedly, if not improving as expected, or if other problems arise. Your Current Medications: CONTINUE TAKING THE FOLLOWING MEDICATIONS: Co Q 10 Oral. Fish Oil Oral. Magnesium Oral. Metoprolol Tartrate Oral : Tablet 25 mg, 1 tablet twice daily, new RX, does not take. Multivitamin Oral. Paxil Oral : Tablet 10 mg, 1 tablet daily, has not started taking due to fear of side effects. Vitamin c Oral. Vitamin D-Vitamin K Oral. Vitamin E Complete Oral. CONTINUE TAKING THE FOLLOWING MEDICATIONS UNTIL YOU CHECK WITH YOUR PHYSICIAN: LORazepam Oral : Tablet 0.5 mg, 1/2 tablet PRN, Last: 3 days ago. Understanding of the discharge instructions verbalized by patient. Follow-up with: Sadiq Diaz MD, [facility], , [address] [place] [address], [phone] Follow up Sunday in three days as scheduled. (Electronically signed by Mumtaz Nicole MD 11/25/2016 11:45)
--- NOTE | 2016-11-25 11:10 | ED CLINICAL REPORT ---
Clinical Report - Physicians/Mid Levels [facility] [address] [place] [address] 11/25/2016 9:31 Patient: JAMAL COLLINS Time Seen: 10:16. Arrived- By private vehicle. Historian- patient. HISTORY OF PRESENT ILLNESS Chief Complaint: ANXIOUS. This started last night. The patient has experienced situational problems related to spouse. (She reports that she feels like she is having "shallow" breathing because she started taking Paxil last night. She also reports she takes ativan and that when she took it this morning she tried to sleep and "my breathing got really shallow and stopped." Pt also reports she is having panic attacks and is under stress). Has not been sleeping. She has had anxiety. No suicidal thoughts. The symptoms are described as severe. Recent medical care: The patient was seen recently by a health care provider. Seen for similar symptoms. Diagnosis: (anxiety). ( Essential hypertension. Thyroid nodule on prior CT scan.). REVIEW OF SYSTEMS No chills, fever, sweats, calf pain or chest pain. No cough, pedal edema, palpitations, abdominal pain or constipation. No diarrhea, nausea, vomiting or urinary problems. She has had difficulty breathing. All systems otherwise negative, except as recorded above. SOCIAL HISTORY Never smoker. No alcohol use or drug use. FAMILY HISTORY Family medical history is unknown due to adoption. ADDITIONAL NOTES The nursing notes have been reviewed. PHYSICAL EXAM Vital Signs: 11/25/2016 09:36 BP: 139/83. HR: 81. RR: 16. O2 saturation: 98%. Temp: 98.3 F. Pain level now: 0/10. Have been reviewed. Appearance: Alert. Patient in apparent distress due to anxiety. Anxious. Eyes: Pupils equal, round and reactive to light. Neck: Normal inspection. Neck supple. No carotid bruit. CVS: Normal heart rate and rhythm. Heart sounds normal. Respiratory: Breath sounds normal. Abdomen: Soft and nontender. Back: No tenderness. Skin: Skin warm and dry. Normal skin color. Normal skin turgor. Extremities: Extremities exhibit normal ROM. No calf tenderness. No lower extremity edema. Psych / Neuro: Denies suicidal thoughts. She expresses obsessions and compulsions. Cranial nerves normal (as tested). No motor deficit. No sensory deficit. LABS, X-RAYS, AND EKG EKG: No acute process. Rate: 85. Changes present when compared to prior EKG. (22 November 2016). The study has been independently viewed by me. PROGRESS AND PROCEDURES Course of Care: Patient is stable. Patient/family counseled. Old medical records reviewed. Disposition: Discharged. Condition: stable. CLINICAL IMPRESSION Anxiety reaction. INSTRUCTIONS Warnings: Further evaluation is necessary. GENERAL WARNINGS: Return or contact your physician immediately if your condition worsens or changes unexpectedly, if not improving as expected, or if other problems arise. Your Current Medications: CONTINUE TAKING THE FOLLOWING MEDICATIONS: Co Q 10 Oral. Fish Oil Oral. Magnesium Oral. Metoprolol Tartrate Oral : Tablet 25 mg, 1 tablet twice daily, new RX, does not take. Multivitamin Oral. Paxil Oral : Tablet 10 mg, 1 tablet daily, has not started taking due to fear of side effects. Vitamin c Oral. Vitamin D-Vitamin K Oral. Vitamin E Complete Oral. CONTINUE TAKING THE FOLLOWING MEDICATIONS UNTIL YOU CHECK WITH YOUR PHYSICIAN: LORazepam Oral : Tablet 0.5 mg, 1/2 tablet PRN, Last: 3 days ago. Understanding of the discharge instructions verbalized by patient. Follow-up with: Sadiq Diaz MD, [facility], , [address] [place] [address], [phone] Follow up Sunday in three days as scheduled. (Electronically signed by Mumtaz Nicole MD 11/25/2016 11:45)
--- NOTE | 2016-11-25 11:10 | ED NURSING NOTES ---
Clinical Report - Nurses [facility] [address] [place] [address] 11/25/2016 9:31 Patient: JAMAL COLLINS TRIAGE Acuity: LEVEL 3. Chief Complaint: SHORTNESS OF BREATH and DIFFICULTY BREATHING. Alert. No acute distress. SEPSIS SCREEN: Sepsis Screen. Negative (no infection suspected/documented). --09:44 Connie Olson R.N. 09:36 11/25/16. BP: 139/83. HR: 81. RR: 16. O2 saturation: 98% on room air. Temp: 98.3 F (oral). Pain level now: 0/10. --09:44 Connie Olson R.N. Weight: 69.8 kg stated. Height/Length: 61 inches Per Patient. BMI: 29.1. --09:42 Connie Olson R.N. Medications Co Q 10 Oral. LORazepam Oral (Tablet 0.5 mg) 1/2 tablet, PRN, last dose 3 days ago. Magnesium Oral. Metoprolol Tartrate Oral (Tablet 25 mg) 1 tablet, twice daily (new RX, does not take). Multivitamin Oral. Paxil Oral (Tablet 10 mg) 1 tablet, daily (has not started taking due to fear of side effects). Vitamin c Oral. Vitamin D-Vitamin K Oral. Vitamin E Complete Oral. --09:40 Connie Olson R.N. Fish Oil Oral. --09:40 Connie Olson R.N. Medication/allergy information source: the patient. --09:44 Connie Olson R.N. Allergies Fluocinolone. --09:41 Connie Olson R.N. Cipro. ("messed up my tendons" ) Sulfa Antibiotics. (rash) --09:41 Connie Olson R.N. History Arrived by private vehicle, and unaccompanied. Primary physician (Emily). This started last night. ( Pt reports she feel like she is having "shallow" breathing because she started taking Paxil last night. She also reports she takes ativan and that when she took ativan this am she tried to sleep and "my breathing got really shallow and stopped." Pt also reports she is having panic attacks and is under stress.). PAST MEDICAL HX: The patient is post-menopausal. SOCIAL HX: Never smoker. Occasional alcohol use. No drug use. FALL RISK ASSESSMENT: Fall risk assessment completed. No fall risk identified. NUTRITIONAL RISK ASSESSMENT: The nutritional risk assessment revealed no deficiencies. FUNCTIONAL ASSESSMENT: Functional assessment: no impairments noted. LEARNING NEEDS ASSESSMENT: The learning needs assessment revealed no barriers. SKIN INTEGRITY ASSESSMENT: Skin integrity risk assessment completed. No skin integrity risk identified. --:44 Connie Olson R.N. PROBLEMS: Hypertension. PTSD. Weakness. Dyspnea. Atypical Chest Pain. Chest Pain. Gastroesophageal Reflux. Panic Attack. Anxiety Reaction. Near Syncope. Immunizations. LNMP - Last Normal Menstrual Period. Headache. Migraine Headache. --09:41 Connie Olson R.N. Assessment GENERAL / NEURO / PSYCH: Alert. Oriented X 4. Appears in no acute distress. [place] Coma Scale: 15- eyes open spontaneously (4); best verbal response- oriented x 4 (5); best motor response- obeys commands (6). Patient appears calm and cooperative. RESPIRATORY: Respirations not labored. CVS: Capillary refill less than 2 seconds. GI / : Abdomen soft and nontender. SKIN: Mucous membranes are pink. Skin is warm and dry. --:44 Connie Olson R.N. Interventions ID band on patient. To treatment room. --:44 Connie Olson R.N. PHYSICAL ASSESSMENT To room via wheelchair. GENERAL / NEURO / PSYCH: Alert. Oriented X 4. Appears in no acute distress. HEENT: Mucous membranes are pink. RESPIRATORY: No respiratory distress. Respirations not labored. No accessory muscle use or wheezes. CVS: Cardiac rhythm: normal sinus rhythm. Capillary refill less than 2 seconds. GI / : Abdomen soft and nontender. SKIN: Skin is warm and dry. Normal skin turgor. --:44 Connie Olson R.N. NURSING PROGRESS NOTES Patient gowned. Two patient identifiers checked. Call light placed in reach. Side rails up x 1. Bed placed in lowest position. Brakes of bed on. Patient ready for evaluation- chart flagged and ED physician notified. --09:45 Connie Olson R.N. EKG time: (940). EKG was ordered, performed by a tech and shown to the ED physician. --10:09 Rahel Fagan. DISPOSITION / DISCHARGE Departure time: 11:15 Nov 25 2016. Condition at departure: unchanged and stable. No learning barriers present. Discharge instructions provided and reviewed with the patient. Patient verbalized understanding. Written instructions provided in [place]. The patient was discharged by the physician. She was discharged home. She left the Emergency Department ambulatory and via private vehicle. Patient driving. --12:21 Connie Olson R.N. 12:19 11/25/16. BP: deferred. --12:21 Connie Olson R.N. Locked/Released at 11/25/2016 12:22 by Connie Olson R.N.
--- NOTE | 2016-11-25 12:22 | ED MAR SUMMARY ---
..... Medication Administration Record [facility] [address] [place], [place] [id number] Patient: JAMAL COLLINS Visit ID: [id number] 51y, F Weight: 69.8 kg Height/Length: 61 in BMI: 29.1 ALLERGIES: Cipro, Sulfa Antibiotics, Fluocinolone
--- NOTE | 2016-11-25 12:22 | ED MED RECONCILIATION SUMMARY ---
Patient: JAMAL COLLINS Medication Reconciliation Report [facility] VisitID: [id number] [address] [place] [address] 51y, F Registration Date/Time: 11/25/2016 Weight: 69.8 kg Height/Length: 61 in. BMI: 29.1 ALLERGIES: Cipro, Fluocinolone, Sulfa Antibiotics The patient's Home Medications are listed below: CONTINUE TAKING THE FOLLOWING MEDICATIONS: Co Q 10 Oral Fish Oil Oral Magnesium Oral Metoprolol Tartrate Oral (25 mg) 1 tablet, twice daily, new RX, does not take Multivitamin Oral Paxil Oral (10 mg) 1 tablet, daily, has not started taking due to fear of side effects Vitamin c Oral Vitamin D-Vitamin K Oral Vitamin E Complete Oral CONTINUE TAKING THE FOLLOWING MEDICATIONS UNTIL YOU CHECK WITH YOUR PHYSICIAN: LORazepam Oral (0.5 mg) 1/2 tablet, PRN, last dose: 3 days ago The source(s) of the original Home Medication information: patient The following Medications were given to the patient in the Emergency Department: None. The following Medications were prescribed to the patient: None.
--- NOTE | 2016-11-25 12:22 | ED DISCHARGE INSTRUCTIONS ---
Patient: JAMAL COLLINS General Instructions [facility] VisitID: [id number] [address] [place], [place] [id number] 51y, F Registration Date/Time: 11/25/2016 Anxiety reaction. INSTRUCTIONS Warnings: Further evaluation is necessary. GENERAL WARNINGS: Return or contact your physician immediately if your condition worsens or changes unexpectedly, if not improving as expected, or if other problems arise. Your Current Medications: CONTINUE TAKING THE FOLLOWING MEDICATIONS: Co Q 10 Oral. Fish Oil Oral. Magnesium Oral. Metoprolol Tartrate Oral : Tablet 25 mg, 1 tablet twice daily, new RX, does not take. Multivitamin Oral. Paxil Oral : Tablet 10 mg, 1 tablet daily, has not started taking due to fear of side effects. Vitamin c Oral. Vitamin D-Vitamin K Oral. Vitamin E Complete Oral. CONTINUE TAKING THE FOLLOWING MEDICATIONS UNTIL YOU CHECK WITH YOUR PHYSICIAN: LORazepam Oral : Tablet 0.5 mg, 1/2 tablet PRN, Last: 3 days ago. Understanding of the discharge instructions verbalized by patient. Follow-up with: Sadiq Diaz MD, [facility], , [address] [id number] Follow up Sunday in three days as scheduled. ADDITIONAL INFORMATION Stress Reaction Anxiety is the feeling we all get when we think something bad might happen. It is a normal response to stress and usually causes only a mild reaction. When anxiety becomes more severe, emotions may interfere with daily life. In some cases, you may not even be aware of what it is youre anxious about! During an anxiety reaction, you may feel like you are helpless, nervous, depressed or irritable. Your body may show signs of anxiety in many ways. You may experience dry mouth, shakiness, dizziness, weakness, trouble breathing, chest pressure, headache, nausea, diarrhea, tiredness, inability to sleep or sexual problems. Home Care: 1) Try to locate the sources of stress in your life. They may not be obvious! These may include: -- Daily hassles of life which pile up (traffic jams, missed appointments, car troubles, etc.) -- Major life changes, both good (new baby, job promotion) and bad (loss of job, loss of loved one) -- Overload: feeling that you have too many responsibilities and can't take care of all of them at once -- Feeling helpless, feeling that your problems are beyond what youre able to solve 2) Notice how your body reacts to stress. Learn to listen to your body signals. This will help you take action before the stress becomes severe. 3) When you can, do something about the source of your stress. (Avoid hassles, limit the amount of change that happens in your life at one time and take a break when you feel overloaded). 4) Unfortunately, many stressful situations cannot be avoided. It is necessary to learn HOW TO MANAGE STRESS better. There are many proven methods that will reduce your anxiety. These include simple things like exercise, good nutrition and adequate rest. Also, there are certain techniques that are helpful: relaxation and breathing exercises, visualization, biofeedback and meditation. For more information about this, consult your doctor or go to a local bookstore and review the many books and tapes available on this subject. Follow Up If you feel that your anxiety is not responding to self-help measures, contact your doctor or make an appointment with a counselor. Get Prompt Medical Attention if any of the following occur: -- Your symptoms get worse -- Chest pain or trouble breathing -- Severe headache not relieved by rest and mild pain reliever -- Rapid or irregular heartbeat, fainting Panic Attack A panic attack is an extreme fear reaction that comes on for no apparent reason. Symptoms may include pounding or racing heartbeat, shortness of breath, dizziness, weakness and sweating. There is usually a fear that something terrible will happen or that you may . The attack may last a few minutes up to a few hours. Between attacks things will seem quite normal. This condition has a psychological cause and can be treated with the help of a therapist or psychiatrist. Medication is often used and can be very helpful for this problem. Home Care: Try to identify the sources of stress in your life. It may not be obvious! These may include: Daily hassles of life which pile up (traffic jams, missed appointments, car troubles, etc.). Major life changes, both good (new baby, job promotion) and bad (loss of job, loss of loved one). Overload: feeling that you have too many responsibilities and can't take care of everything at once. Helplessness: feeling like your problems are too much for you to handle. Notice how your body reacts to stress. Learn to listen to your body signals so that you can take action before the stress becomes severe. When possible, AVOID or REDUCE THE CAUSE OF STRESS. Avoid hassles, limit the amount of change that is happening in your life at one time or take a break when you feel overloaded. Unfortunately, many stressful situations cannot be avoided. Therefore, it is necessary to LEARN HOW TO MANAGE STRESS better. There are many proven methods that work and will reduce your anxiety. These include simple things like exercise, good nutrition and adequate rest. Also, there are certain techniques that are helpful: relaxation and breathing exercises, visualization, biofeedback, meditation or simply taking some time-out to clear your mind. For more information about this, consult your doctor or go to a local bookstore and review the many books and tapes available on this subject. Follow Up with your doctor or a therapist as advised. Get Prompt Medical Attention if any of the following occur: Worsening of your symptoms to the point of feeling [id number] A change in the type of pain: if it feels different, becomes more severe, lasts longer, or begins to spread into your shoulder, arm, neck, jaw or back Shortness of breath or increased pain with breathing Increasing feeling of weakness or dizziness Fainting Cough with dark colored sputum (phlegm) or blood Fever of 100.4F (38C) or higher, or as directed by your healthcare provider Swelling, pain or redness in one leg You have been given the following additional information: Anxiety Reaction Panic Attack (Electronically signed by Mumtaz Nicole MD 11/25/2016 11:45)
--- NOTE | 2016-11-25 12:22 | ED MAR SUMMARY ---
..... Medication Administration Record [facility] [address] [place], [place] [id number] Patient: JAMAL COLLINS Visit ID: [id number] 51y, F Weight: 69.8 kg Height/Length: 61 in BMI: 29.1 ALLERGIES: Cipro, Sulfa Antibiotics, Fluocinolone
--- NOTE | 2016-11-25 12:22 | ED MED RECONCILIATION SUMMARY ---
Patient: JAMAL COLLINS Medication Reconciliation Report [facility] VisitID: [id number] [address] [place] [address] 51y, F Registration Date/Time: 11/25/2016 Weight: 69.8 kg Height/Length: 61 in. BMI: 29.1 ALLERGIES: Cipro, Fluocinolone, Sulfa Antibiotics The patient's Home Medications are listed below: CONTINUE TAKING THE FOLLOWING MEDICATIONS: Co Q 10 Oral Fish Oil Oral Magnesium Oral Metoprolol Tartrate Oral (25 mg) 1 tablet, twice daily, new RX, does not take Multivitamin Oral Paxil Oral (10 mg) 1 tablet, daily, has not started taking due to fear of side effects Vitamin c Oral Vitamin D-Vitamin K Oral Vitamin E Complete Oral CONTINUE TAKING THE FOLLOWING MEDICATIONS UNTIL YOU CHECK WITH YOUR PHYSICIAN: LORazepam Oral (0.5 mg) 1/2 tablet, PRN, last dose: 3 days ago The source(s) of the original Home Medication information: patient The following Medications were given to the patient in the Emergency Department: None. The following Medications were prescribed to the patient: None.
== END 2016-11-25 11:15 | disposition home or self-care (01) ==
LOC: ED SRH 09:29
DX: F41.1 Generalized anxiety disorder (principal)

== ENCOUNTER 2016-11-27 04:31 | Emergency (ER) | payer OTHER ==
--- NOTE | 2016-11-27 07:43 | ED CLINICAL REPORT ---
Clinical Report - Physicians/Mid Levels [facility] [address] [place] [address] 11/27/2016 4:32 Patient: JAMAL COLLINS Time Seen: 04:41 Nov 27 2016. Arrived- By private vehicle. Historian- patient. CPT: ER phys charges level 4 plus (#[id number]). EKG interpretation (#[id number]). HISTORY OF PRESENT ILLNESS Chief Complaint: PALPITATIONS. It is described as a fast and pounding heart beat. Modifying factors. Not worsened by anything. Not relieved by anything. This started today and is still present. No chest pain or discomfort, sweating episodes, fainting episodes or dizziness. No tingling or muscle spasms. She has had difficulty breathing. Similar symptoms previously: As bad. 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 Seen for similar symptoms. Diagnosis: (Anxiety). REVIEW OF SYSTEMS No fever, chills, cough, orthopnea or calf pain. No sore throat, blurred vision, nausea, abdominal pain or black stools. No difficulty with urination, skin rash, vomiting, diarrhea or bloody stools. High level stress in living situation presently due to . Just started Paxil 3 days ago. All systems otherwise negative, except as recorded above. PAST HISTORY 6-17 seen here with D-Dimer of 1.34 with negative CTA. Additional Surgeries: no known surgeries. Medications: Co Q 10 Oral. Fish Oil Oral. LORazepam Oral (Tablet 0.5 mg) 1/2 tablet, PRN, last dose 3 days ago. Magnesium Oral. Metoprolol Tartrate Oral (Tablet 25 mg) 1 tablet, twice daily (new RX, does not take). Multivitamin Oral. Paxil Oral (Tablet 10 mg) 1 tablet, daily (has not started taking due to fear of side effects). Vitamin c Oral. Vitamin D-Vitamin K Oral. Vitamin E Complete Oral. Allergies: Cipro. ("messed up my tendons" ) Fluocinolone. Sulfa Antibiotics. (rash). SOCIAL HISTORY Never smoker. No alcohol use or drug use. ADDITIONAL NOTES The nursing notes have been reviewed. PHYSICAL EXAM Vital Signs: 11/27/2016 04:37 BP: 157/89. HR: 86. RR: 16. O2 saturation: 98%. Temp: 99 F. Pain level now: 0/10. Appearance: Alert. No acute distress. Anxious. Eyes: Eyes normal inspection. ENT: Pharynx normal. Neck: Normal inspection. CVS: Normal heart rate and rhythm. Heart sounds normal. Pulses normal. Respiratory: No respiratory distress. Breath sounds normal. Chest nontender. Abdomen: Soft and nontender. Back: Normal external inspection. Skin: Skin warm. Normal skin color. No rash. Extremities: Extremities exhibit normal ROM. No lower extremity edema. Neuro: Oriented X 3. No motor deficit. No sensory deficit. Reflexes normal. LABS, X-RAYS, AND EKG EKG: Normal EKG. Chest X-ray: Normal Chest X-Ray. Laboratory Tests: UA-Culture if indicated: (WILMA: 11/27/2016 06:18) ( [facility] 11/27/2016 06:35) Final results Test Result Flag Units (Reference) URINE COLOR YELLOW URINE APPEARANCE CLEAR URINE GLUCOSE NEGATIVE (NEGATIVE) URINE BILIRUBIN NEGATIVE (NEGATIVE) URINE KETONE NEGATIVE (NEGATIVE) URINE SPECIFIC GRAVITY <= 1.005 L (1.010-1.030) URINE PH 6.0 (5.0-8.0) URINE PROTEIN NEGATIVE (NEGATIVE) URINE UROBILINOGEN 0.2 EU/dL (0.2-1.0) URINE NITRITE NEGATIVE (NEGATIVE) URINE BLOOD TRACE-INTACT (NEGATIVE) URINE LEUK ESTERASE NEGATIVE (NEGATIVE) URINE RBC RARE rbc/hpf (0-1) URINE WBC NONE SEEN wbc/hpf (0-1) URINE EPITHELIAL CELLS RARE EPI/hpf (0-5) URINE BACTERIA NONE SEEN (NONE SEEN) URINE COMMENT CULT NOT INDICATED URINE CULTURES ARE SET-UP BASED ON THE FOLLOWING CRITERIA:POSITIVE NITRITEPOSITIVE LEUKOCYTE ESTERASEGREATER THAN 10 WHITE BLOOD CELLSMODERATE (2+) OR GREATER BACTERIA CBC w Diff: (WILMA: 11/27/2016 06:18) ( [facility] [place]/27[place] 06:29) Final results Test Result Flag Units (Reference) WHITE BLOOD COUNT 8.8 K/uL (4.5-11.5) RED BLOOD COUNT 4.90 M/uL (4.00-5.20) HEMOGLOBIN 14.9 gm/dL (12.0-16.0) HEMATOCRIT 45.0 % (36.0-46.0) MEAN CELL VOLUME 92 fL (80-100) MEAN CORPUSCULAR HGB 31 pg (26-34) MEAN CORPUSCULAR HGB CONC 33 g/dL (31-37) RED CELL DISTRIBUTION WIDTH 13.3 % (11.6-14.8) PLATELET COUNT 303 K/uL (150-400) LYMPH % 22.4 L % (25-40) MONO % 4.0 % (3-14) GRANULOCYTE % 73.6 (53-90) [id number]: (WILMA: 11/27/2016 06:18) ( MsgRcvd 11/27/2016 06:38) Final results Test Result Flag Units (Reference) D-DIMER QUANTITATIVE 0.99 H ug/mLFEU (0.27-0.52) The primary value of this quantitative assay relates toits negative predictive value (i.e. exclusion) of pulmonaryembolism/deep vein thrombosis/DIC.Elevated levels of d-dimer may also occur with:, age, cancer, inflammation, liver disease,post-op, infection, hematoma, coronary disease, peripheralarteriopathy, bleeding disorders and thrombolytic treatment.Results should be correlated with other clinical andradiological data.Testing Methodology: Latex Immunoassay Urine Drug Screen: (WILMA: 11/27/2016 06:18) ( MsgRcvd 11/27/2016 06:42) Final results Test Result Flag Units (Reference) AMPHETAMINE/METHAMPHETAMINE NEGATIVE (NEGATIVE) BARBITURATE NEGATIVE (NEGATIVE) BENZODIAZEPINE NEGATIVE (NEGATIVE) CANNABINOID NEGATIVE (NEGATIVE) COCAINE NEGATIVE (NEGATIVE) ECSTASY NEGATIVE (NEGATIVE) METHADONE NEGATIVE (NEGATIVE) OPIATE NEGATIVE (NEGATIVE) The urine drug screen is a qualitative screening test fordrug overdose and abuse. All screen results should beconsidered as presumptive.Drugs screened for are as follows:BenzodiazepinesCocaineAmphetamines/MetamphetaminesTHC (Tetrahydrocannabinol)OpiatesBarbituratesEcstasyMethadonePositive results are unconfirmed. For confirmation, notifythe lab for the specimen to be sent to the reference lab.All confirmations must be performed by a differentmethodology.The ingestion of natural herbal and plant productscontaining Ephedra/Ephedra metabolites can produce in urineone or more substances capable of cross reacting withamphetamine/methamphetamine immunoassays. These testsprovide a preliminary result only. A more specificalternative chemical method must be used to obtain aconfirmed analytical result. BNP: (WILMA: 11/27/2016 06:18) ( [facility] 11/27/2016 06:44) Final results Test Result Flag Units (Reference) B-TYPE NATRIURETIC PEPTIDE 8.3 pg/ml (5-100) CHEM 13 PANEL: (WILMA: 11/27/2016 06:18) ( [facility] [place] 11/27/2016 07:00) Final results Test Result Flag Units (Reference) GLUCOSE 95 mg/dL (70-110) BUN 22 H mg/dL (7-18) CREATININE 0.9 mg/dL (0.6-1.3) Estimated GFR >60 mL/min Estimated GFR- >60 mL/min Note: Persistent reduction over 3 months in eGFR<60 mL/min/1.73 m2 defines CKD. Patients with eGFR values>=60 mL/min/1.73 m2 may also have CKD if evidence ofpersistent proteinuria. Additional information may be foundat www.kidney.org. SODIUM 142 mmol/L (136-145) POTASSIUM 4.1 mmol/L (3.5-5.1) CHLORIDE 106 mmol/L (98-107) CARBON DIOXIDE 28 mmol/L (21-32) CALCIUM 9.3 mg/dL (8.5-10.1) TOTAL PROTEIN 7.8 g/dL (6.4-8.2) ALBUMIN 4.0 g/dL (3.3-5.0) BILIRUBIN, TOTAL 0.5 mg/dL (0.0-1.0) ALKALINE PHOSPHATASE 82 U/L (46-116) AST (SGOT) 17 U/L (15-37) ALT (SGPT) 29 U/L (12-78) CPK 112 U/L (24-260) MAGNESIUM 2.5 H mg/dL (1.8-2.4) TROPONIN I <0.05 ng/mL (0.00-1.5) TROPONIN REFERENCE RANGE:<0.1 NEGATIVE0.1-1.5 INDETERMINANT>1.5 POSITIVE THYROID STIMULATING HORMONE 1.346 uIU/mL (0.34-3.74) . PROGRESS AND PROCEDURES Course of Care: Heplock. Patient/family counseled. Disposition: Discharged. Condition: stable and improved. CLINICAL IMPRESSION Rapid heart rate related to high adrenaline levels. Multiple stressors. Mild dehydration. INSTRUCTIONS Avoid stimulants (such as cigarettes, coffee, cold medicines, sinus medicines, street drugs). (Use gatorade and a variety of liquids.). Warnings: Further evaluation is necessary. GENERAL WARNINGS: Return or contact your physician immediately if your condition worsens or changes unexpectedly, if not improving as expected, or if other problems arise. Your Current Medications: CONTINUE TAKING THE FOLLOWING MEDICATIONS: Co Q 10 Oral. Fish Oil Oral. LORazepam Oral : Tablet 0.5 mg, 1/2 tablet PRN, Last: 3 days ago. Magnesium Oral. Metoprolol Tartrate Oral : Tablet 25 mg, 1 tablet twice daily, new RX, does not take. Multivitamin Oral. Paxil Oral : Tablet 10 mg, 1 tablet daily, has not started taking due to fear of side effects. Vitamin c Oral. Vitamin D-Vitamin K Oral. Vitamin E Complete Oral. Follow-up: Follow up with your doctor as scheduled. Understanding of the discharge instructions verbalized by patient. (Electronically signed by Horace Fung MD 11/27/2016 20:45)
--- NOTE | 2016-11-27 07:43 | ED CLINICAL REPORT ---
Clinical Report - Physicians/Mid Levels [facility] [address] [place] [address] 11/27/2016 4:32 Patient: JAMAL COLLINS Time Seen: 04:41 Nov 27 2016. Arrived- By private vehicle. Historian- patient. CPT: ER phys charges level 4 plus (#[id number]). EKG interpretation (#[id number]). HISTORY OF PRESENT ILLNESS Chief Complaint: PALPITATIONS. It is described as a fast and pounding heart beat. Modifying factors. Not worsened by anything. Not relieved by anything. This started today and is still present. No chest pain or discomfort, sweating episodes, fainting episodes or dizziness. No tingling or muscle spasms. She has had difficulty breathing. Similar symptoms previously: As bad. 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 Seen for similar symptoms. Diagnosis: (Anxiety). REVIEW OF SYSTEMS No fever, chills, cough, orthopnea or calf pain. No sore throat, blurred vision, nausea, abdominal pain or black stools. No difficulty with urination, skin rash, vomiting, diarrhea or bloody stools. High level stress in living situation presently due to . Just started Paxil 3 days ago. All systems otherwise negative, except as recorded above. PAST HISTORY 6-17 seen here with D-Dimer of 1.34 with negative CTA. Additional Surgeries: no known surgeries. Medications: Co Q 10 Oral. Fish Oil Oral. LORazepam Oral (Tablet 0.5 mg) 1/2 tablet, PRN, last dose 3 days ago. Magnesium Oral. Metoprolol Tartrate Oral (Tablet 25 mg) 1 tablet, twice daily (new RX, does not take). Multivitamin Oral. Paxil Oral (Tablet 10 mg) 1 tablet, daily (has not started taking due to fear of side effects). Vitamin c Oral. Vitamin D-Vitamin K Oral. Vitamin E Complete Oral. Allergies: Cipro. ("messed up my tendons" ) Fluocinolone. Sulfa Antibiotics. (rash). SOCIAL HISTORY Never smoker. No alcohol use or drug use. ADDITIONAL NOTES The nursing notes have been reviewed. PHYSICAL EXAM Vital Signs: 11/27/2016 04:37 BP: 157/89. HR: 86. RR: 16. O2 saturation: 98%. Temp: 99 F. Pain level now: 0/10. Appearance: Alert. No acute distress. Anxious. Eyes: Eyes normal inspection. ENT: Pharynx normal. Neck: Normal inspection. CVS: Normal heart rate and rhythm. Heart sounds normal. Pulses normal. Respiratory: No respiratory distress. Breath sounds normal. Chest nontender. Abdomen: Soft and nontender. Back: Normal external inspection. Skin: Skin warm. Normal skin color. No rash. Extremities: Extremities exhibit normal ROM. No lower extremity edema. Neuro: Oriented X 3. No motor deficit. No sensory deficit. Reflexes normal. LABS, X-RAYS, AND EKG EKG: Normal EKG. Chest X-ray: Normal Chest X-Ray. Laboratory Tests: UA-Culture if indicated: (WILMA: 11/27/2016 06:18) ( [facility] 11/27/2016 06:35) Final results Test Result Flag Units (Reference) URINE COLOR YELLOW URINE APPEARANCE CLEAR URINE GLUCOSE NEGATIVE (NEGATIVE) URINE BILIRUBIN NEGATIVE (NEGATIVE) URINE KETONE NEGATIVE (NEGATIVE) URINE SPECIFIC GRAVITY <= 1.005 L (1.010-1.030) URINE PH 6.0 (5.0-8.0) URINE PROTEIN NEGATIVE (NEGATIVE) URINE UROBILINOGEN 0.2 EU/dL (0.2-1.0) URINE NITRITE NEGATIVE (NEGATIVE) URINE BLOOD TRACE-INTACT (NEGATIVE) URINE LEUK ESTERASE NEGATIVE (NEGATIVE) URINE RBC RARE rbc/hpf (0-1) URINE WBC NONE SEEN wbc/hpf (0-1) URINE EPITHELIAL CELLS RARE EPI/hpf (0-5) URINE BACTERIA NONE SEEN (NONE SEEN) URINE COMMENT CULT NOT INDICATED URINE CULTURES ARE SET-UP BASED ON THE FOLLOWING CRITERIA:POSITIVE NITRITEPOSITIVE LEUKOCYTE ESTERASEGREATER THAN 10 WHITE BLOOD CELLSMODERATE (2+) OR GREATER BACTERIA CBC w Diff: (WILMA: 11/27/2016 06:18) ( [facility] [place]:29) Final results Test Result Flag Units (Reference) WHITE BLOOD COUNT 8.8 K/uL (4.5-11.5) RED BLOOD COUNT 4.90 M/uL (4.00-5.20) HEMOGLOBIN 14.9 gm/dL (12.0-16.0) HEMATOCRIT 45.0 % (36.0-46.0) MEAN CELL VOLUME 92 fL (80-100) MEAN CORPUSCULAR HGB 31 pg (26-34) MEAN CORPUSCULAR HGB CONC 33 g/dL (31-37) RED CELL DISTRIBUTION WIDTH 13.3 % (11.6-14.8) PLATELET COUNT 303 K/uL (150-400) LYMPH % 22.4 L % (25-40) MONO % 4.0 % (3-14) GRANULOCYTE % 73.6 (53-90) [id number]: (WILMA: 11/27/2016 06:18) ( MsgRcvd 11/27/2016 06:38) Final results Test Result Flag Units (Reference) D-DIMER QUANTITATIVE 0.99 H ug/mLFEU (0.27-0.52) The primary value of this quantitative assay relates toits negative predictive value (i.e. exclusion) of pulmonaryembolism/deep vein thrombosis/DIC.Elevated levels of d-dimer may also occur with:, age, cancer, inflammation, liver disease,post-op, infection, hematoma, coronary disease, peripheralarteriopathy, bleeding disorders and thrombolytic treatment.Results should be correlated with other clinical andradiological data.Testing Methodology: Latex Immunoassay Urine Drug Screen: (WILMA: 11/27/2016 06:18) ( MsgRcvd 11/27/2016 06:42) Final results Test Result Flag Units (Reference) AMPHETAMINE/METHAMPHETAMINE NEGATIVE (NEGATIVE) BARBITURATE NEGATIVE (NEGATIVE) BENZODIAZEPINE NEGATIVE (NEGATIVE) CANNABINOID NEGATIVE (NEGATIVE) COCAINE NEGATIVE (NEGATIVE) ECSTASY NEGATIVE (NEGATIVE) METHADONE NEGATIVE (NEGATIVE) OPIATE NEGATIVE (NEGATIVE) The urine drug screen is a qualitative screening test fordrug overdose and abuse. All screen results should beconsidered as presumptive.Drugs screened for are as follows:BenzodiazepinesCocaineAmphetamines/MetamphetaminesTHC (Tetrahydrocannabinol)OpiatesBarbituratesEcstasyMethadonePositive results are unconfirmed. For confirmation, notifythe lab for the specimen to be sent to the reference lab.All confirmations must be performed by a differentmethodology.The ingestion of natural herbal and plant productscontaining Ephedra/Ephedra metabolites can produce in urineone or more substances capable of cross reacting withamphetamine/methamphetamine immunoassays. These testsprovide a preliminary result only. A more specificalternative chemical method must be used to obtain aconfirmed analytical result. BNP: (WILMA: 11/27/2016 06:18) ( [facility] 11/27/2016 06:44) Final results Test Result Flag Units (Reference) B-TYPE NATRIURETIC PEPTIDE 8.3 pg/ml (5-100) CHEM 13 PANEL: (WILMA: 11/27/2016 06:18) ( [facility] [place] 07:00) Final results Test Result Flag Units (Reference) GLUCOSE 95 mg/dL (70-110) BUN 22 H mg/dL (7-18) CREATININE 0.9 mg/dL (0.6-1.3) Estimated GFR >60 mL/min Estimated GFR- >60 mL/min Note: Persistent reduction over 3 months in eGFR<60 mL/min/1.73 m2 defines CKD. Patients with eGFR values>=60 mL/min/1.73 m2 may also have CKD if evidence ofpersistent proteinuria. Additional information may be foundat www.kidney.org. SODIUM 142 mmol/L (136-145) POTASSIUM 4.1 mmol/L (3.5-5.1) CHLORIDE 106 mmol/L (98-107) CARBON DIOXIDE 28 mmol/L (21-32) CALCIUM 9.3 mg/dL (8.5-10.1) TOTAL PROTEIN 7.8 g/dL (6.4-8.2) ALBUMIN 4.0 g/dL (3.3-5.0) BILIRUBIN, TOTAL 0.5 mg/dL (0.0-1.0) ALKALINE PHOSPHATASE 82 U/L (46-116) AST (SGOT) 17 U/L (15-37) ALT (SGPT) 29 U/L (12-78) CPK 112 U/L (24-260) MAGNESIUM 2.5 H mg/dL (1.8-2.4) TROPONIN I <0.05 ng/mL (0.00-1.5) TROPONIN REFERENCE RANGE:<0.1 NEGATIVE0.1-1.5 INDETERMINANT>1.5 POSITIVE THYROID STIMULATING HORMONE 1.346 uIU/mL (0.34-3.74) . PROGRESS AND PROCEDURES Course of Care: Heplock. Patient/family counseled. Disposition: Discharged. Condition: stable and improved. CLINICAL IMPRESSION Rapid heart rate related to high adrenaline levels. Multiple stressors. Mild dehydration. INSTRUCTIONS Avoid stimulants (such as cigarettes, coffee, cold medicines, sinus medicines, street drugs). (Use gatorade and a variety of liquids.). Warnings: Further evaluation is necessary. GENERAL WARNINGS: Return or contact your physician immediately if your condition worsens or changes unexpectedly, if not improving as expected, or if other problems arise. Your Current Medications: CONTINUE TAKING THE FOLLOWING MEDICATIONS: Co Q 10 Oral. Fish Oil Oral. LORazepam Oral : Tablet 0.5 mg, 1/2 tablet PRN, Last: 3 days ago. Magnesium Oral. Metoprolol Tartrate Oral : Tablet 25 mg, 1 tablet twice daily, new RX, does not take. Multivitamin Oral. Paxil Oral : Tablet 10 mg, 1 tablet daily, has not started taking due to fear of side effects. Vitamin c Oral. Vitamin D-Vitamin K Oral. Vitamin E Complete Oral. Follow-up: Follow up with your doctor as scheduled. Understanding of the discharge instructions verbalized by patient. (Electronically signed by Horace Fung MD 11/27/2016 20:45)
--- NOTE | 2016-11-27 07:44 | ED ORDER SUMMARY ---
..... Patient: JAMAL COLLINS OrderSheet [facility] VisitID: [id number] [place] [address] 51y, F Registration Date/Time: 11/27/2016 ORDER SHEET Weight: 69.8 kg (stated) Allergies: Cipro, Fluocinolone, Sulfa Antibiotics GENERAL ORDERS: Cytology Laboratory Manager (Continuous) (05:00 11/27/2016 Tresa TORRE) (5:14 RKaruga) Cardiac Panel Stat (05:11/27/2016 Tresa TORRE) (Ack 5:29 RKaruga) (6:04 HSoule) BNP Urgent (05:11/27/2016 Tresa TORRE) (Ack 5:29 RKradhauga) (6:04 HSoule) D-Dimer Urgent (05:11/27/2016 Tresa TORRE) (Ack 5:29 RKaruga) (6:04 HSoule) TSH Urgent (05:11/27/2016 Tresa TORRE) (Ack 5:29 RKaruga) (6:45 HSoule) UA-Culture if indicated Urgent (05:11/27/2016 Tresa TORRE) (Ack 5:29 RKaruga) (6:45 HSoule) Urine Drug Screen Urgent (05:11/27/2016 Tresa TORRE) (Ack 5:29 RKaruga) (6:45 HSoule) Pulse oximeter (05:11/27/2016 Tresa TORRE) (5:14 RKaruga) EKG - ER Stat (05:11/27/2016 Tresa TORRE) (5:14 RKaruga) Chest 2V Urgent (05:11/27/2016 Tresa TORRE) (5:12 RFay) MEDICATION ORDERS: IV FLUIDS: IV Saline Lock (:11/27/2016 Tresa TORRE) (6:19 HSoule) ORDER SHEET NOTES: [Electronically signed by Connie Olson R.N. (11:45 11/27/2016)] [Electronically signed by Horace Fung MD (20:45 11/27/2016)] [Electronically locked/signed by Connie Olson R.N. (11:45 11/27/2016)]
--- NOTE | 2016-11-27 07:44 | ED ORDER SUMMARY ---
..... Patient: JAMAL COLLINS OrderSheet [facility] VisitID: [id number] [place] [address] 51y, F Registration Date/Time: 11/27/2016 ORDER SHEET Weight: 69.8 kg (stated) Allergies: Cipro, Fluocinolone, Sulfa Antibiotics GENERAL ORDERS: Outsole Molder (Continuous) (05:00 11/27/2016 Tresa TORRE) (5:14 RKaruga) Cardiac Panel Stat (05:11/27/2016 Tresa TORRE) (Ack 5:29 RKaruga) (6:04 HSoule) BNP Urgent (05:11/27/2016 Tresa TORRE) (Ack 5:29 RKradhauga) (6:04 HSoule) D-Dimer Urgent (05:11/27/2016 Tresa TORRE) (Ack 5:29 RKaruga) (6:04 HSoule) TSH Urgent (05:11/27/2016 Tresa TORRE) (Ack 5:29 RKaruga) (6:45 HSoule) UA-Culture if indicated Urgent (05:11/27/2016 Tresa TORRE) (Ack 5:29 RKaruga) (6:45 HSoule) Urine Drug Screen Urgent (05:11/27/2016 Tresa TORRE) (Ack 5:29 RKaruga) (6:45 HSoule) Pulse oximeter (05:11/27/2016 Tresa TORRE) (5:14 RKaruga) EKG - ER Stat (05:11/27/2016 Tresa TORRE) (5:14 RKaruga) Chest 2V Urgent (05:11/27/2016 Tresa TORRE) (5:12 RFay) MEDICATION ORDERS: IV FLUIDS: IV Saline Lock (:11/27/2016 Tresa TORRE) (6:19 HSoule) ORDER SHEET NOTES: [Electronically signed by Connie Olson R.N. (11:45 11/27/2016)] [Electronically signed by Horace Fung MD (20:45 11/27/2016)] [Electronically locked/signed by Connie Olson R.N. (11:45 11/27/2016)]
--- NOTE | 2016-11-27 07:44 | ED NURSING NOTES ---
Clinical Report - Nurses Formerly [facility] [address] [place] [address] 11/27/2016 4:32 [id number] Triage time 04:35 Nov 27 2016. Acuity: LEVEL 3. Chief Complaint: PALPITATIONS. Alert. KRISTINE COMA SCORE: Kristine Coma Scale: 15- eyes open spontaneously (4); best verbal response- oriented x 4 (5); best motor response- obeys commands (6). --04:49 Roman Jimenez R.N. 04:37 11/27/16. BP: 157/89. HR: 86. RR: 16. O2 saturation: 98% on room air. Temp: 99 F. Pain level now: 0/10. --04:49 Roman Jimenez R.N. Weight: 69.8 kg stated. Height/Length: 61.5 inches Per Patient. BMI: 28.6. --04:43 Roman Jimenez R.N. Medications Co Q 10 Oral. Fish Oil Oral. LORazepam Oral (Tablet 0.5 mg) 1/2 tablet, PRN, last dose 3 days ago. Magnesium Oral. Metoprolol Tartrate Oral (Tablet 25 mg) 1 tablet, twice daily (new RX, does not take). Multivitamin Oral. Paxil Oral (Tablet 10 mg) 1 tablet, daily (has not started taking due to fear of side effects). Vitamin c Oral. Vitamin D-Vitamin K Oral. Vitamin E Complete Oral. --04:44 Roman Jimenez R.N. Allergies Cipro. ("messed up my tendons" ) Fluocinolone. Sulfa Antibiotics. (rash) --04:44 Roman Jimenez R.N. Medication/allergy information source: the patient. --04:49 Roman Jimenez R.N. History Arrived by private vehicle. Historian: patient. Unaccompanied. Primary physician (Emily). ( Rapid Heart rate (palpitations). Pt states that she woke up about 2 hours ago and she could tell that her HR was fast (estimated at 120 by pt).). This started today. Onset. (about 2 hours ago). She has had weakness. ( Hot Flashes). PAST MEDICAL HX: Denies current . SURGERY HX: No history of previous surgery. SOCIAL HX: Never smoker. No alcohol use or drug use. No infectious disease exposure. ABUSE ASSESSMENT: No report of abuse. FALL RISK ASSESSMENT: Fall risk assessment completed. No fall risk identified. NUTRITIONAL RISK ASSESSMENT: The nutritional risk assessment revealed no deficiencies. FUNCTIONAL ASSESSMENT: Functional assessment: no impairments noted. LEARNING NEEDS ASSESSMENT: The learning needs assessment revealed no barriers. SKIN INTEGRITY ASSESSMENT: Skin integrity risk assessment completed. No skin integrity risk identified. --04:49 Roman Jimenez R.N. PROBLEMS: Hypertension. PTSD. Weakness. Dyspnea. Atypical Chest Pain. Chest Pain. Gastroesophageal Reflux. Panic Attack. Anxiety Reaction. Near Syncope. Immunizations. LNMP - Last Normal Menstrual Period. Headache. Migraine Headache. --04:46 Roman Jimenez R.N. ADDITIONAL SURGERIES: no known surgeries. Interventions ID band on patient. To treatment room. --04:49 Roman Jimenez R.N. PHYSICAL ASSESSMENT Ambulatory to room. GENERAL / NEURO / PSYCH: Alert. Oriented X 4. Appears anxious. HEENT: No facial asymmetry noted. RESPIRATORY: Respirations not labored. CVS: Normal sinus rhythm noted. GI / : Abdomen soft and nontender. SKIN: Skin intact. Skin is warm and dry. Normal skin turgor. --04:50 Roman Jimenez R.N. NURSING PROGRESS NOTES Reassurance given. Patient identifiers checked. Call light placed in reach. Side rails up x 1. Bed placed in lowest position. Brakes of bed on. Patient ready for evaluation- chart flagged and ED physician notified. --04:50 Roman Jimenez R.N. 06:04 11/27/2016 Site #1 started via IV in the left antecubital space with an 20g angiocath, with aseptic technique and good blood return; one attempt. Blood drawn: rainbow set. Labeled in the presence of the patient and sent to the lab. Saline lock flushed with 10 mL saline. --06:19 Halima Bell 06:09 11/27/16. Patient ID band checked for patient name and birthdate: patient confirmed. Blood samples drawn from the left antecubital space peripheral IV site by nurse ; labeled in presence of the patient and sent to lab: rainbow set. Line flushed with 10 mL normal saline post blood draw. --06:19 Genevieve Bellh Patient ID band checked for patient name: patient confirmed. Instructions provided to collect clean catch urine and patient verbalized understanding. Clean catch urine collected with return of yellow-colored clear urine; sample sent to lab for urinalysis. Specimen labeled in the presence of the patient. --06:20 Genevieve Bellh 07:00 11/27/16. BP: 122/69. HR: 61. RR: 16. O2 saturation: 97% on room air. Pain level now: 0/10. --07:19 Roman Jimenez R.N. EKG time: (4:43 AM). EKG was performed by a tech and shown to the ED physician. --07:24 Kyree Emmy. DISPOSITION / DISCHARGE Departure time: 08:00 Nov 27 2016. Condition at departure: improved and stable. No learning barriers present. Discharge instructions provided and reviewed with the patient. Patient verbalized understanding. Written instructions provided in Maori. The patient was discharged by the physician. She was discharged home. She left the Emergency Department ambulatory and via private vehicle. Patient driving. --11:44 Connie Olson R.N. 11:43 11/27/16. BP: 131/90. HR: 71. RR: 16. O2 saturation: 100%. Temp: 98.8 F (oral). --11:44 Connie Olson R.N. 08:00 11/27/2016 Site #1 removed upon discharge. Catheter intact. Manual pressure and bandage applied. --11:45 Connie Olson R.N. Locked/Released at 11/27/2016 11:45 by Connie Olson R.N.
--- NOTE | 2016-11-27 08:23 | DIAGNOSTIC IMAGING REPORT ---
PROCEDURE: XR CHEST 2 VIEW INDICATION: PALPITATIONS TECHNIQUE: Two views. COMPARISON: 11/22/2016 FINDINGS: The cardiomediastinal contour is stable, within normal limits. The central vasculature is not congested. The lungs are clear without focal consolidation, pleural effusion or pneumothorax. The visualized osseous structures are intact. IMPRESSION: 1. No evidence of acute cardiopulmonary disease. 2. Stable exam compared to prior study.
--- NOTE | 2016-11-27 20:46 | ED MAR SUMMARY ---
..... Medication Administration Record [facility] [address] [place], [place] [id number] Patient: JAMAL COLLINS Visit ID: [id number] 51y, F Weight: 69.8 kg Height/Length: 61.5 in BMI: 28.6 ALLERGIES: Cipro, Fluocinolone, Sulfa Antibiotics
--- NOTE | 2016-11-27 20:46 | ED MAR SUMMARY ---
..... Medication Administration Record [facility] [address] [place], [place] [id number] Patient: JAMAL COLLINS Visit ID: [id number] 51y, F Weight: 69.8 kg Height/Length: 61.5 in BMI: 28.6 ALLERGIES: Cipro, Fluocinolone, Sulfa Antibiotics
--- NOTE | 2016-11-27 20:46 | ED DISCHARGE INSTRUCTIONS ---
Patient: JAMAL COLLINS General Instructions [facility] VisitID: [id number] [place] [address] 51y, F Registration Date/Time: 11/27/2016 Rapid heart rate related to high adrenaline levels. Multiple stressors. Mild dehydration. INSTRUCTIONS Avoid stimulants (such as cigarettes, coffee, cold medicines, sinus medicines, street drugs). (Use gatorade and a variety of liquids.). Warnings: Further evaluation is necessary. GENERAL WARNINGS: Return or contact your physician immediately if your condition worsens or changes unexpectedly, if not improving as expected, or if other problems arise. Your Current Medications: CONTINUE TAKING THE FOLLOWING MEDICATIONS: Co Q 10 Oral. Fish Oil Oral. LORazepam Oral : Tablet 0.5 mg, 1/2 tablet PRN, Last: 3 days ago. Magnesium Oral. Metoprolol Tartrate Oral : Tablet 25 mg, 1 tablet twice daily, new RX, does not take. Multivitamin Oral. Paxil Oral : Tablet 10 mg, 1 tablet daily, has not started taking due to fear of side effects. Vitamin c Oral. Vitamin D-Vitamin K Oral. Vitamin E Complete Oral. Follow-up: Follow up with your doctor as scheduled. Understanding of the discharge instructions verbalized by patient. (Electronically signed by Horace Fung MD 11/27/2016 20:45)
--- NOTE | 2016-11-27 20:46 | ED MED RECONCILIATION SUMMARY ---
Patient: JAMAL COLLINS Medication Reconciliation Report [facility] VisitID: [id number] [address] [place] [address] 51y, F Registration Date/Time: 11/27/2016 Weight: 69.8 kg Height/Length: (not available) BMI: 28.6 ALLERGIES: Cipro, Fluocinolone, Sulfa Antibiotics The patient's Home Medications are listed below: CONTINUE TAKING THE FOLLOWING MEDICATIONS: Co Q 10 Oral Fish Oil Oral LORazepam Oral (0.5 mg) 1/2 tablet, PRN, last dose: 3 days ago Magnesium Oral Metoprolol Tartrate Oral (25 mg) 1 tablet, twice daily, new RX, does not take Multivitamin Oral Paxil Oral (10 mg) 1 tablet, daily, has not started taking due to fear of side effects Vitamin c Oral Vitamin D-Vitamin K Oral Vitamin E Complete Oral The source(s) of the original Home Medication information: patient The following Medications were given to the patient in the Emergency Department: None. The following Medications were prescribed to the patient: None.
--- NOTE | 2016-11-27 20:46 | ED MED RECONCILIATION SUMMARY ---
Patient: JAMAL COLLINS Medication Reconciliation Report [facility] VisitID: [id number] [address] [place] [address] 51y, F Registration Date/Time: 11/27/2016 Weight: 69.8 kg Height/Length: (not available) BMI: 28.6 ALLERGIES: Cipro, Fluocinolone, Sulfa Antibiotics The patient's Home Medications are listed below: CONTINUE TAKING THE FOLLOWING MEDICATIONS: Co Q 10 Oral Fish Oil Oral LORazepam Oral (0.5 mg) 1/2 tablet, PRN, last dose: 3 days ago Magnesium Oral Metoprolol Tartrate Oral (25 mg) 1 tablet, twice daily, new RX, does not take Multivitamin Oral Paxil Oral (10 mg) 1 tablet, daily, has not started taking due to fear of side effects Vitamin c Oral Vitamin D-Vitamin K Oral Vitamin E Complete Oral The source(s) of the original Home Medication information: patient The following Medications were given to the patient in the Emergency Department: None. The following Medications were prescribed to the patient: None.
--- NOTE | 2016-11-27 20:46 | ED DISCHARGE INSTRUCTIONS ---
Patient: JAMAL COLLINS General Instructions [facility] VisitID: [id number] [place] [address] 51y, F Registration Date/Time: 11/27/2016 Rapid heart rate related to high adrenaline levels. Multiple stressors. Mild dehydration. INSTRUCTIONS Avoid stimulants (such as cigarettes, coffee, cold medicines, sinus medicines, street drugs). (Use gatorade and a variety of liquids.). Warnings: Further evaluation is necessary. GENERAL WARNINGS: Return or contact your physician immediately if your condition worsens or changes unexpectedly, if not improving as expected, or if other problems arise. Your Current Medications: CONTINUE TAKING THE FOLLOWING MEDICATIONS: Co Q 10 Oral. Fish Oil Oral. LORazepam Oral : Tablet 0.5 mg, 1/2 tablet PRN, Last: 3 days ago. Magnesium Oral. Metoprolol Tartrate Oral : Tablet 25 mg, 1 tablet twice daily, new RX, does not take. Multivitamin Oral. Paxil Oral : Tablet 10 mg, 1 tablet daily, has not started taking due to fear of side effects. Vitamin c Oral. Vitamin D-Vitamin K Oral. Vitamin E Complete Oral. Follow-up: Follow up with your doctor as scheduled. Understanding of the discharge instructions verbalized by patient. (Electronically signed by Horace Fung MD 11/27/2016 20:45)
== END 2016-11-27 08:00 | disposition home or self-care (01) ==
LOC: ED SRH 04:31
DX: E86.0 Dehydration (principal); R00.0 Tachycardia, unspecified; F43.9 Reaction to severe stress, unspecified; I10 Essential (primary) hypertension; K21.9 Gastro-esophageal reflux disease without esophagitis; Z79.899 Other long term (current) drug therapy; Z88.1 Allergy status to other antibiotic agents; Z88.2 Allergy status to sulfonamides; Z88.8 Allergy status to other drugs, medicaments and biological substances
CPT/HCPCS: 90004; 90100; 90616; 91320; 91556; 92610; 92720; 92760; 92761; 92762; 92763; 92764; 92765; 92766; 92767; 93140; 95059

== ENCOUNTER 2016-11-30 00:56 | Emergency (ER) | payer OTHER ==
--- NOTE | 2016-11-30 03:08 | ED NURSING NOTES ---
Clinical Report - Nurses [facility] [address] [place] [address] 11/30/2016 0:58 Patient: JAMAL COLLINS TRIAGE Triage time 01:06. Acuity: LEVEL 4. 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 Alert. --01:12 Cori Mcdonald R.N. 01:06 11/30/16. BP: 163/85. HR: 86. RR: 18 (regular and unlabored). O2 saturation: 98% on room air. Temp: 98.5 F (oral). Mart-Reynolds pain scale: 4/10. --01:12 Cori Mcdonald R.N. Weight: 71.6 kg stated. Height/Length: 61 inches Per Patient. BMI: 29.8. --01:09 Cori Mcdonald R.N. Medications Co Q 10 Oral. Fish Oil Oral. LORazepam Oral (Tablet 0.5 mg) 1/2 tablet, PRN, last dose 3 days ago. Magnesium Oral. Metoprolol Tartrate Oral (Tablet 25 mg) 1 tablet, twice daily (new RX, does not take). Multivitamin Oral. Paxil Oral (Tablet 10 mg) 1 tablet, daily (has stopped taking for past two days due to side effects.). Vitamin c Oral. Vitamin D-Vitamin K Oral. Vitamin E Complete Oral. --01:09 Cori Mcdonald R.N. Allergies Cipro. ("messed up my tendons" ) Fluocinolone. Sulfa Antibiotics. (rash) --01:09 Cori Mcdonald R.N. History Arrived by private vehicle. Historian: patient. Primary physician (Emily). ( urethral opening feels hot and like she can't hold her urine. pt also reports having frequent stools, flushing of skin, and slow breathing "like she couldn't control her breathing (like she had to force herself to breathe)). This started today. ( pt was seen two days ago at PCP (blood work done), has appt for sunday due to recent symptoms.). SOCIAL HX: Never smoker. Occasional alcohol use. No drug use. --01:12 Cori Mcdonald R.N. Interventions ID band on patient. To treatment room. --:12 Cori Mcdonald R.N. PHYSICAL ASSESSMENT Ambulatory to room. Patient gowned. GENERAL / NEURO / PSYCH: Alert. Oriented X 4. Appears anxious. HEENT: Mucous membranes are pink. RESPIRATORY: Respirations not labored. CVS: Capillary refill less than 2 seconds. SKIN: Skin is warm and dry. --01:12 Cori Mcdonald R.N. NURSING PROGRESS NOTES Head of bed elevated. Two patient identifiers checked. Call light placed in reach. Side rails up x 1. Bed placed in lowest position. Brakes of bed on. --01:12 Cori Mcdonald R.N. Patient ready for evaluation- chart flagged. --:12 Cori Mcdonald R.N. Patient ID band checked for patient name and birthdate: patient confirmed. Instructions provided to collect clean catch urine and patient verbalized understanding. Clean catch urine collected, sediment noted; odor is normal; sample sent to lab for urinalysis. Specimen labeled in the presence of the patient. --01:14 Emmy Adorno 02:10 Patient contact made; lights dimmed per patient request. No other voiced questions or concerns. --02:11 McQuoid, Abena, ER Tech1 02:45 11/30/16. ( Patient sleeping, easily aroused. She will continue to sleep, lights still dimed.). --02:45 Citlali Szymanski R.N. 02:44 11/30/16. BP: 110/63 (regular adult cuff) taken on the left arm, while lying. HR: 67. RR: 16. O2 saturation: 100% on room air. Pain level now: 08/18. --02:45 Citlali Szymanski R.N. DISPOSITION / DISCHARGE Condition at departure: unchanged. Learning barriers present. Discharge instructions provided and reviewed with the patient. Patient verbalized understanding. Written instructions provided in Sami. No medication instructions or treatment instructions. The patient was discharged home and unaccompanied at time of discharge. She left the Emergency Department ambulatory and via private vehicle. Patient driving. --03:21 Marielena Holbrook R.N. 03:15 11/30/16. BP: 120/69 taken on the left arm, while lying. HR: 79 (regular and normal rate). RR: 18 (regular and unlabored). O2 saturation: 100% on room air. Temp: deferred. Pain level now: 0/10. --03:21 Marielena Holbrook R.N. Departure time: 314. --03:21 Marielena Holbrook R.N. Locked/Released at 11/30/2016 3:22 by Marielena Holbrook R.N.
--- NOTE | 2016-11-30 03:08 | ED CLINICAL REPORT ---
Clinical Report - Physicians/Mid Levels [facility] [address] [place] [address] 11/30/2016 0:58 Patient: JAMAL COLLINS Time Seen: 01:11; initial patient contact. Arrived- By private vehicle. Historian- patient. HISTORY OF PRESENT ILLNESS Chief Complaint: DIARRHEA. This started yesterday Possibly due to Rxn to Paxil, has not taken a dose in 2 days. and is still present. It was gradual in onset and has been constant. No nausea, vomiting, black stools, bloody stools or abdominal pain. She has had loose stools. This has occurred several times. The illness is described as mild. Similar symptoms previously: None. Recent medical care: The patient was seen recently at this facility (multiple times over the past 2 months, elevated D dimer, neg CTA of chest. Nl TSH from the past 2 visits.). REVIEW OF SYSTEMS No fever. She has had muscle aches. Anxious. All systems otherwise negative, except as recorded above. PAST HISTORY See nurses notes. Surgeries: No history of previous surgery. Additional Surgeries: no known surgeries. Medications: Co Q 10 Oral. Fish Oil Oral. LORazepam Oral (Tablet 0.5 mg) 1/2 tablet, PRN, last dose 3 days ago. Magnesium Oral. Metoprolol Tartrate Oral (Tablet 25 mg) 1 tablet, twice daily (new RX, does not take). Multivitamin Oral. Paxil Oral (Tablet 10 mg) 1 tablet, daily (has stopped taking for past two days due to side effects.). Vitamin c Oral. Vitamin D-Vitamin K Oral. Vitamin E Complete Oral. Allergies: Cipro. ("messed up my tendons" ) Fluocinolone. Sulfa Antibiotics. (rash). SOCIAL HISTORY Never smoker. Occasional alcohol use. No drug use. ADDITIONAL NOTES The nursing notes have been reviewed. PHYSICAL EXAM Vital Signs: 11/30/2016 01:06 BP: 163/85. HR: 86. RR: 18. O2 saturation: 98%. Temp: 98.5 F. Mart-Reynolds pain scale: 4/10. Have been reviewed. Hypertensive. Heart rate normal. Respiratory rate normal. Temperature normal. Oxygen saturation normal. Appearance: Alert. Oriented X3. Anxious. Eyes: Eyes normal inspection. ENT: Pharynx normal. CVS: Normal heart rate and rhythm. Heart sounds normal. Respiratory: No respiratory distress. Breath sounds normal. Abdomen: Soft and nontender. Bowel sounds normal. Skin: Skin warm and dry. Normal skin color. Extremities: No lower extremity edema. Neuro: Oriented X 3. PROGRESS AND PROCEDURES Disposition: Discharged home in good condition. Condition: good. CLINICAL IMPRESSION Adverse drug reaction involving a SSRI (selective serotonin reuptake inhibitor) antidepressant. INSTRUCTIONS Your Current Medications: STOP TAKING THE FOLLOWING MEDICATIONS: Paxil Oral : Tablet 10 mg, 1 tablet daily, has stopped taking for past two days due to side effects. CONTINUE TAKING THE FOLLOWING MEDICATIONS: Co Q 10 Oral. Fish Oil Oral. LORazepam Oral : Tablet 0.5 mg, 1/2 tablet PRN, Last: 3 days ago. Magnesium Oral. Metoprolol Tartrate Oral : Tablet 25 mg, 1 tablet twice daily, new RX, does not take. Multivitamin Oral. Vitamin c Oral. Vitamin D-Vitamin K Oral. Vitamin E Complete Oral. Follow-up: Follow up with your doctor today as scheduled. Blood pressure screening was not performed during this visit because the patient has an active diagnosis of hypertension. (Electronically signed by Aakash Winters Dr. 11/30/2016 3:11)
--- NOTE | 2016-11-30 03:08 | ED NURSING NOTES ---
Clinical Report - Nurses [facility] [address] [place] [address] 11/30/2016 0:58 Patient: JAMAL COLLINS TRIAGE Triage time 01:06. Acuity: LEVEL 4. 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 Alert. --01:12 Cori Mcdonald R.N. 01:06 11/30/16. BP: 163/85. HR: 86. RR: 18 (regular and unlabored). O2 saturation: 98% on room air. Temp: 98.5 F (oral). Mart-Reynolds pain scale: 4/10. --01:12 Cori Mcdonald R.N. Weight: 71.6 kg stated. Height/Length: 61 inches Per Patient. BMI: 29.8. --01:09 Cori Mcdonald R.N. Medications Co Q 10 Oral. Fish Oil Oral. LORazepam Oral (Tablet 0.5 mg) 1/2 tablet, PRN, last dose 3 days ago. Magnesium Oral. Metoprolol Tartrate Oral (Tablet 25 mg) 1 tablet, twice daily (new RX, does not take). Multivitamin Oral. Paxil Oral (Tablet 10 mg) 1 tablet, daily (has stopped taking for past two days due to side effects.). Vitamin c Oral. Vitamin D-Vitamin K Oral. Vitamin E Complete Oral. --01:09 Cori Mcdonald R.N. Allergies Cipro. ("messed up my tendons" ) Fluocinolone. Sulfa Antibiotics. (rash) --01:09 Cori Mcdonald R.N. History Arrived by private vehicle. Historian: patient. Primary physician (Emily). ( urethral opening feels hot and like she can't hold her urine. pt also reports having frequent stools, flushing of skin, and slow breathing "like she couldn't control her breathing (like she had to force herself to breathe)). This started today. ( pt was seen two days ago at PCP (blood work done), has appt for sunday due to recent symptoms.). SOCIAL HX: Never smoker. Occasional alcohol use. No drug use. --01:12 Cori Mcdonald R.N. Interventions ID band on patient. To treatment room. --:12 Cori Mcdonald R.N. PHYSICAL ASSESSMENT Ambulatory to room. Patient gowned. GENERAL / NEURO / PSYCH: Alert. Oriented X 4. Appears anxious. HEENT: Mucous membranes are pink. RESPIRATORY: Respirations not labored. CVS: Capillary refill less than 2 seconds. SKIN: Skin is warm and dry. --01:12 Cori Mcdonald R.N. NURSING PROGRESS NOTES Head of bed elevated. Two patient identifiers checked. Call light placed in reach. Side rails up x 1. Bed placed in lowest position. Brakes of bed on. --01:12 Cori Mcdonald R.N. Patient ready for evaluation- chart flagged. --:12 Cori Mcdonald R.N. Patient ID band checked for patient name and birthdate: patient confirmed. Instructions provided to collect clean catch urine and patient verbalized understanding. Clean catch urine collected, sediment noted; odor is normal; sample sent to lab for urinalysis. Specimen labeled in the presence of the patient. --01:14 Emmy Adorno 02:10 Patient contact made; lights dimmed per patient request. No other voiced questions or concerns. --02:11 McQuoid, Abena, ER Tech1 02:45 11/30/16. ( Patient sleeping, easily aroused. She will continue to sleep, lights still dimed.). --02:45 Citlali Szymanski R.N. 02:44 11/30/16. BP: 110/63 (regular adult cuff) taken on the left arm, while lying. HR: 67. RR: 16. O2 saturation: 100% on room air. Pain level now: 08/18. --02:45 Citlali Szymanski R.N. DISPOSITION / DISCHARGE Condition at departure: unchanged. Learning barriers present. Discharge instructions provided and reviewed with the patient. Patient verbalized understanding. Written instructions provided in Kinyarwanda. No medication instructions or treatment instructions. The patient was discharged home and unaccompanied at time of discharge. She left the Emergency Department ambulatory and via private vehicle. Patient driving. --03:21 Marielena Holbrook R.N. 03:15 11/30/16. BP: 120/69 taken on the left arm, while lying. HR: 79 (regular and normal rate). RR: 18 (regular and unlabored). O2 saturation: 100% on room air. Temp: deferred. Pain level now: 0/10. --03:21 Marielena Holbrook R.N. Departure time: 314. --03:21 Marielena Holbrook R.N. Locked/Released at 11/30/2016 3:22 by Marielena Holbrook R.N.
--- NOTE | 2016-11-30 03:22 | ED MED RECONCILIATION SUMMARY ---
Patient: JAMAL COLLINS Medication Reconciliation Report [facility] VisitID: [id number] [address] [place] [address] 51y, F Registration Date/Time: 11/30/2016 Weight: 71.6 kg Height/Length: 61 in. BMI: 29.8 ALLERGIES: Cipro, Fluocinolone, Sulfa Antibiotics The patient's Home Medications are listed below: STOP TAKING THE FOLLOWING MEDICATIONS: Paxil Oral (10 mg) 1 tablet, daily, has stopped taking for past two days due to side effects. CONTINUE TAKING THE FOLLOWING MEDICATIONS: Co Q 10 Oral Fish Oil Oral LORazepam Oral (0.5 mg) 1/2 tablet, PRN, last dose: 3 days ago Magnesium Oral Metoprolol Tartrate Oral (25 mg) 1 tablet, twice daily, new RX, does not take Multivitamin Oral Vitamin c Oral Vitamin D-Vitamin K Oral Vitamin E Complete Oral The source(s) of the original Home Medication information: Not obtained. The following Medications were given to the patient in the Emergency Department: None. The following Medications were prescribed to the patient: None.
--- NOTE | 2016-11-30 03:22 | ED MED RECONCILIATION SUMMARY ---
Patient: JAMAL COLLINS Medication Reconciliation Report [facility] VisitID: [id number] [address] [place] [address] 51y, F Registration Date/Time: 11/30/2016 Weight: 71.6 kg Height/Length: 61 in. BMI: 29.8 ALLERGIES: Cipro, Fluocinolone, Sulfa Antibiotics The patient's Home Medications are listed below: STOP TAKING THE FOLLOWING MEDICATIONS: Paxil Oral (10 mg) 1 tablet, daily, has stopped taking for past two days due to side effects. CONTINUE TAKING THE FOLLOWING MEDICATIONS: Co Q 10 Oral Fish Oil Oral LORazepam Oral (0.5 mg) 1/2 tablet, PRN, last dose: 3 days ago Magnesium Oral Metoprolol Tartrate Oral (25 mg) 1 tablet, twice daily, new RX, does not take Multivitamin Oral Vitamin c Oral Vitamin D-Vitamin K Oral Vitamin E Complete Oral The source(s) of the original Home Medication information: Not obtained. The following Medications were given to the patient in the Emergency Department: None. The following Medications were prescribed to the patient: None.
--- NOTE | 2016-11-30 03:22 | ED MAR SUMMARY ---
..... Medication Administration Record [facility] [address] [place], [place] [id number] Patient: JAMAL COLLINS Visit ID: [id number] 51y, F Weight: 71.6 kg Height/Length: 61 in BMI: 29.8 ALLERGIES: Cipro, Fluocinolone, Sulfa Antibiotics
--- NOTE | 2016-11-30 03:22 | ED MAR SUMMARY ---
..... Medication Administration Record [facility] [address], [place] [id number] Patient: JAMAL COLLINS Visit ID: [id number] 51y, F Weight: 71.6 kg Height/Length: 61 in BMI: 29.8 ALLERGIES: Cipro, Fluocinolone, Sulfa Antibiotics
--- NOTE | 2016-11-30 03:22 | ED DISCHARGE INSTRUCTIONS ---
Patient: JAMAL COLLINS General Instructions [facility] VisitID: [id number] [place] [address] 51y, F Registration Date/Time: 11/30/2016 Adverse drug reaction involving a SSRI (selective serotonin reuptake inhibitor) antidepressant. INSTRUCTIONS Your Current Medications: STOP TAKING THE FOLLOWING MEDICATIONS: Paxil Oral : Tablet 10 mg, 1 tablet daily, has stopped taking for past two days due to side effects. CONTINUE TAKING THE FOLLOWING MEDICATIONS: Co Q 10 Oral. Fish Oil Oral. LORazepam Oral : Tablet 0.5 mg, 1/2 tablet PRN, Last: 3 days ago. Magnesium Oral. Metoprolol Tartrate Oral : Tablet 25 mg, 1 tablet twice daily, new RX, does not take. Multivitamin Oral. Vitamin c Oral. Vitamin D-Vitamin K Oral. Vitamin E Complete Oral. Follow-up: Follow up with your doctor today as scheduled. Blood pressure screening was not performed during this visit because the patient has an active diagnosis of hypertension. ADDITIONAL INFORMATION Drug Reaction: Dystonic You are having a muscular reaction to a drug you have taken. This can cause tightening or stiffening of the muscles of the eyes, tongue, jaw, neck, back, arms and legs. If untreated, this reaction would last until the drug is eliminated naturally from your body. This could take up to three days. However, you have been treated with an "antidote", to reverse this reaction (Benadryl (diphenhydramine), Cogentin (benzatropine), or Artane (trihexyphenidyl) . Home Care: 1) You may eat and drink normally. Take your other prescribed meds as directed. Avoid alcohol during the next three days. 2) Take the antidote medicine for at least two days (48 hours) to prevent recurrence of symptoms. After two days, most of the offending medicine should be eliminated from your body. 3) If you feel the symptoms return after stopping the antidote, start the antidote medicine again for another 48 hours. If this does not help or if you run out of medicine, contact your doctor. Preventing Future Reactions 1) Most dystonic reactions are due to a class of drugs called PHENOTHIAZINES. This includes anti-nausea drugs such as Compazine, Phenergan, Tigan and Inapsine; as well as tranquillizers such as Thorazine, Mellaril and Haldol. If you have reacted to one drug in this class, any drug in this class will probably cause the same reaction. 2) Unless specifically advised by your doctor, do not take theoffending drug ever again . It will cause the same reaction in the future. In some cases where the offending drug is needed to treat your condition and no alternatives exist, each dose can be taken along with the antidote medicine. 3) Whenever you go to a doctor or hospital for treatment, tell the staff of your reaction to this drug so that it will not be used. Follow Up with your doctor as advised or in three days , if you are still feeling any muscle tightness. Get Prompt Medical Attention if any of the following occur: -- Symptoms return and are not controlled by starting the antidote medicine again -- Symptoms continue or require antidote medicine for more than three days You have been given the following additional information: Drug Reaction, Dystonic (Electronically signed by Aakash Winters Dr. 11/30/2016 3:11)
== END 2016-11-30 03:15 | disposition home or self-care (01) ==
LOC: ED SRH 00:56
DX: R19.7 Diarrhea, unspecified (principal); T43.225A Adverse effect of selective serotonin reuptake inhibitors, initial encounter; Z79.899 Other long term (current) drug therapy; Z88.2 Allergy status to sulfonamides; Z88.1 Allergy status to other antibiotic agents; Z88.8 Allergy status to other drugs, medicaments and biological substances

== ENCOUNTER 2016-12-14 15:27 | Emergency (ER) | payer OTHER ==
--- NOTE | 2016-12-14 16:46 | ED CLINICAL REPORT ---
Clinical Report - Physicians/Mid Levels [facility] [address] [place] [address] 12/14/2016 15:29 Patient: JAMAL COLLINS Time Seen: 15:38; initial patient contact. Arrived- By private vehicle. Historian- patient. HISTORY OF PRESENT ILLNESS Chief Complaint: DIARRHEA. This started today and is still present. It was gradual in onset. No nausea, vomiting, black stools, bloody stools or abdominal pain. No constipation. She has had diarrhea. The illness is described as mild. (Pt takes an OTC Magensium supplement b/c she "feels that she needs it".). Similar symptoms previously: Many times. Recent medical care: ( Called PCP, sent here by YENI.). REVIEW OF SYSTEMS No fever, difficulty with urination, headache or dizziness. All systems otherwise negative, except as recorded above. PAST HISTORY Adverse Drug Reaction. Hypertension. PTSD. Weakness. Dyspnea. Atypical Chest Pain. Chest Pain. Gastroesophageal Reflux. Panic Attack. Anxiety Reaction. Near Syncope. Headache. Migraine Headache. SOCIAL HISTORY Never smoker. No alcohol use or drug use. ADDITIONAL NOTES The nursing notes have been reviewed. PHYSICAL EXAM Vital Signs: 12/14/2016 15:38 BP: 144/76. HR: 79. RR: 18. O2 saturation: 100%. Temp: 98.6 F. Have been reviewed. Hypertensive. Heart rate normal. Respiratory rate normal. Temperature normal. Oxygen saturation normal. Appearance: Alert. Oriented X3. No acute distress. Eyes: Eyes normal inspection. ENT: Pharynx normal. CVS: Normal heart rate and rhythm. Heart sounds normal. Respiratory: No respiratory distress. Breath sounds normal. Neuro: Oriented X 3. No motor deficit. No sensory deficit. (No tremor noted). PROGRESS AND PROCEDURES Course of Care: Spoke w/ Dr. Cisses YENI, TSH 0.9 yesterday. Disposition: Discharged home in good and improved condition. Condition: good. CLINICAL IMPRESSION Anxiety reaction with hyperventilation. INSTRUCTIONS Your Current Medications: STOP TAKING THE FOLLOWING MEDICATIONS: Magnesium Oral. CONTINUE TAKING THE FOLLOWING MEDICATIONS: Co Q 10 Oral. Fish Oil Oral. Multivitamin Oral. Vitamin c Oral. Vitamin D-Vitamin K Oral. Vitamin E Complete Oral. Prescription Medications: BuSpar 7.5 mg: take 1 tablet every 12 hours. Dispense thirty (30). No refills. Substitution is permissible. Follow-up: Follow up with your doctor in about four days. Call for an appointment. Blood pressure screening was not performed during this visit because the patient has an active diagnosis of hypertension. (Electronically signed by Aakash Winters Dr. 12/14/2016 17:09)
--- NOTE | 2016-12-14 16:46 | ED CLINICAL REPORT ---
Clinical Report - Physicians/Mid Levels [facility] [address] [place] [address] 12/14/2016 15:29 Patient: JAMAL COLLINS Time Seen: 15:38; initial patient contact. Arrived- By private vehicle. Historian- patient. HISTORY OF PRESENT ILLNESS Chief Complaint: DIARRHEA. This started today and is still present. It was gradual in onset. No nausea, vomiting, black stools, bloody stools or abdominal pain. No constipation. She has had diarrhea. The illness is described as mild. (Pt takes an OTC Magensium supplement b/c she "feels that she needs it".). Similar symptoms previously: Many times. Recent medical care: ( Called PCP, sent here by YENI.). REVIEW OF SYSTEMS No fever, difficulty with urination, headache or dizziness. All systems otherwise negative, except as recorded above. PAST HISTORY Adverse Drug Reaction. Hypertension. PTSD. Weakness. Dyspnea. Atypical Chest Pain. Chest Pain. Gastroesophageal Reflux. Panic Attack. Anxiety Reaction. Near Syncope. Headache. Migraine Headache. SOCIAL HISTORY Never smoker. No alcohol use or drug use. ADDITIONAL NOTES The nursing notes have been reviewed. PHYSICAL EXAM Vital Signs: 12/14/2016 15:38 BP: 144/76. HR: 79. RR: 18. O2 saturation: 100%. Temp: 98.6 F. Have been reviewed. Hypertensive. Heart rate normal. Respiratory rate normal. Temperature normal. Oxygen saturation normal. Appearance: Alert. Oriented X3. No acute distress. Eyes: Eyes normal inspection. ENT: Pharynx normal. CVS: Normal heart rate and rhythm. Heart sounds normal. Respiratory: No respiratory distress. Breath sounds normal. Neuro: Oriented X 3. No motor deficit. No sensory deficit. (No tremor noted). PROGRESS AND PROCEDURES Course of Care: Spoke w/ Dr. Cisses YENI, TSH 0.9 yesterday. Disposition: Discharged home in good and improved condition. Condition: good. CLINICAL IMPRESSION Anxiety reaction with hyperventilation. INSTRUCTIONS Your Current Medications: STOP TAKING THE FOLLOWING MEDICATIONS: Magnesium Oral. CONTINUE TAKING THE FOLLOWING MEDICATIONS: Co Q 10 Oral. Fish Oil Oral. Multivitamin Oral. Vitamin c Oral. Vitamin D-Vitamin K Oral. Vitamin E Complete Oral. Prescription Medications: BuSpar 7.5 mg: take 1 tablet every 12 hours. Dispense thirty (30). No refills. Substitution is permissible. Follow-up: Follow up with your doctor in about four days. Call for an appointment. Blood pressure screening was not performed during this visit because the patient has an active diagnosis of hypertension. (Electronically signed by Aakash Winters Dr. 12/14/2016 17:09)
--- NOTE | 2016-12-14 16:47 | ED NURSING NOTES ---
Clinical Report - Nurses [facility] [address] [place] [address] 12/14/2016 15:29 Patient: JAMAL COLLINS TRIAGE Triage time 1536. Acuity: LEVEL 3. Chief Complaint: ANXIETY and (Tremors). Alert. SEPSIS SCREEN: Sepsis Screen: negative. Negative (no infection suspected/documented). Temperature less than 36 degrees C (96.8 degrees F). KRISTINE COMA SCORE: Kristine Coma Scale: 15- eyes open spontaneously (4); best verbal response- oriented x 4 (5); best motor response- obeys commands (6). --15:47 Lady Dominguez R.N. 15:38 12/14/16. BP: 144/76. HR: 79. RR: 18. O2 saturation: 100%. Temp: 98.6 F. Pain level now 0/10. --15:47 Lady Dominguez R.N. Weight: 70.7 kg stated. Height/Length: 61.5 inches Per Patient. BMI: 29. --15:45 Lady Dominguez R.N. Medications Co Q 10 Oral. Fish Oil Oral. Magnesium Oral. Multivitamin Oral. Vitamin c Oral. Vitamin D-Vitamin K Oral. Vitamin E Complete Oral. --15:43 Lady Dominguez R.N. Medication/allergy information source: the patient. --15:47 Lady Dominguez R.N. Allergies Cipro. ("messed up my tendons" ) Fluocinolone. Sulfa Antibiotics. (rash) --15:42 Lady Dominguez R.N. Paxil. --15:43 Lady Dominguez R.N. Lorazepam. --15:43 Lady Dominguez R.N. History Arrived by private vehicle. Historian: patient. Accompanied by family. Primary physician (Emily). Onset. (1 weeks). ( one week of tremors- generalized upper body, one month of resolved lightheaded and dizzy, anxiety x 10 years. Going through divorce now.). 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 PAST MEDICAL HX: Immunizations: up-to-date. The patient is post-menopausal. SOCIAL HX: Never smoker. No alcohol use or drug use. No infectious disease exposure. ABUSE ASSESSMENT: No report of abuse. FALL RISK ASSESSMENT: Fall risk assessment completed. No fall risk identified. NUTRITIONAL RISK ASSESSMENT: The nutritional risk assessment revealed no deficiencies. FUNCTIONAL ASSESSMENT: Functional assessment: no impairments noted. LEARNING NEEDS ASSESSMENT: The learning needs assessment revealed no barriers. SKIN INTEGRITY ASSESSMENT: Skin integrity risk assessment completed. No skin integrity risk identified. --15:47 Lady Dominguez R.N. PROBLEMS: Adverse Drug Reaction. Hypertension. PTSD. Weakness. Dyspnea. Atypical Chest Pain. Chest Pain. Gastroesophageal Reflux. Panic Attack. Anxiety Reaction. Near Syncope. Immunizations. LNMP - Last Normal Menstrual Period. Headache. Migraine Headache. --15:44 Lady Dominguez R.N. Interventions ID band on patient. To treatment room. --15:47 Lady Dominguez R.N. PHYSICAL ASSESSMENT Ambulatory to room. GENERAL / NEURO / PSYCH: Alert. Oriented X 4. (mild anxiety, no tremors noted). Speech within normal limits. Affect appears normal. Patient appears calm and cooperative. Good eye contact. Patient appears well-nourished. RESPIRATORY: Respirations not labored. SKIN: Skin intact. Skin is warm and dry. Skin color is within normal limits. --15:49 Lady Dominguez R.N. NURSING PROGRESS NOTES Patient gowned. Head of bed elevated. Reassurance given. Two patient identifiers checked. Call light placed in reach. Side rails up x 2. Bed placed in lowest position. Brakes of bed on. Patient ready for evaluation- chart flagged. ED physician notified. --15:48 Lady Dominguez R.N. 17:17 12/14/16. BP: 127/88. HR: 76. RR: 18. O2 saturation: 100%. Temp: 97.8 F. Pain level now 0/10. 16:30 12/14/16. HR: 64. RR: 18. O2 saturation: 99%. 16:00 12/14/16. HR: 65. RR: 17. O2 saturation: 97%. --17:21 Lady Dominguez R.N. DISPOSITION / DISCHARGE Departure time: 17:18. Condition at departure: improved and stable. No learning barriers present. Discharge instructions provided and reviewed with the patient. Patient verbalized understanding. Written instructions provided in Turkish. The patient was discharged home. She left the Emergency Department ambulatory and via private vehicle. Patient driving. --17:18 Lady Dominguez R.N. 17:17 12/14/16. BP: 127/88. HR: 76. RR: 18. O2 saturation: 100%. Temp: 97.8 F. Pain level now 0/10. --17:18 Lady Dominguez R.N. Locked/Released at 12/14/2016 17:22 by Lady Dominguez R.N.
--- NOTE | 2016-12-14 16:47 | ED NURSING NOTES ---
Clinical Report - Nurses [facility] [address] [place] [address] 12/14/2016 15:29 Patient: JAMAL COLLINS TRIAGE Triage time 1536. Acuity: LEVEL 3. Chief Complaint: ANXIETY and (Tremors). Alert. SEPSIS SCREEN: Sepsis Screen: negative. Negative (no infection suspected/documented). Temperature less than 36 degrees C (96.8 degrees F). KRISTINE COMA SCORE: Kristine Coma Scale: 15- eyes open spontaneously (4); best verbal response- oriented x 4 (5); best motor response- obeys commands (6). --15:47 Lady Dominguez R.N. 15:38 12/14/16. BP: 144/76. HR: 79. RR: 18. O2 saturation: 100%. Temp: 98.6 F. Pain level now 0/10. --15:47 Lady Dominguez R.N. Weight: 70.7 kg stated. Height/Length: 61.5 inches Per Patient. BMI: 29. --15:45 Lady Dominguez R.N. Medications Co Q 10 Oral. Fish Oil Oral. Magnesium Oral. Multivitamin Oral. Vitamin c Oral. Vitamin D-Vitamin K Oral. Vitamin E Complete Oral. --15:43 Lady Dominguez R.N. Medication/allergy information source: the patient. --15:47 Lady Dominguez R.N. Allergies Cipro. ("messed up my tendons" ) Fluocinolone. Sulfa Antibiotics. (rash) --15:42 Lady Dominguez R.N. Paxil. --15:43 Lady Dominguez R.N. Lorazepam. --15:43 Lady Dominguez R.N. History Arrived by private vehicle. Historian: patient. Accompanied by family. Primary physician (Emily). Onset. (1 weeks). ( one week of tremors- generalized upper body, one month of resolved lightheaded and dizzy, anxiety x 10 years. Going through divorce now.). 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 PAST MEDICAL HX: Immunizations: up-to-date. The patient is post-menopausal. SOCIAL HX: Never smoker. No alcohol use or drug use. No infectious disease exposure. ABUSE ASSESSMENT: No report of abuse. FALL RISK ASSESSMENT: Fall risk assessment completed. No fall risk identified. NUTRITIONAL RISK ASSESSMENT: The nutritional risk assessment revealed no deficiencies. FUNCTIONAL ASSESSMENT: Functional assessment: no impairments noted. LEARNING NEEDS ASSESSMENT: The learning needs assessment revealed no barriers. SKIN INTEGRITY ASSESSMENT: Skin integrity risk assessment completed. No skin integrity risk identified. --15:47 Lady Dominguez R.N. PROBLEMS: Adverse Drug Reaction. Hypertension. PTSD. Weakness. Dyspnea. Atypical Chest Pain. Chest Pain. Gastroesophageal Reflux. Panic Attack. Anxiety Reaction. Near Syncope. Immunizations. LNMP - Last Normal Menstrual Period. Headache. Migraine Headache. --15:44 Lady Dominguez R.N. Interventions ID band on patient. To treatment room. --15:47 Lady Dominguez R.N. PHYSICAL ASSESSMENT Ambulatory to room. GENERAL / NEURO / PSYCH: Alert. Oriented X 4. (mild anxiety, no tremors noted). Speech within normal limits. Affect appears normal. Patient appears calm and cooperative. Good eye contact. Patient appears well-nourished. RESPIRATORY: Respirations not labored. SKIN: Skin intact. Skin is warm and dry. Skin color is within normal limits. --15:49 Lady Dominguez R.N. NURSING PROGRESS NOTES Patient gowned. Head of bed elevated. Reassurance given. Two patient identifiers checked. Call light placed in reach. Side rails up x 2. Bed placed in lowest position. Brakes of bed on. Patient ready for evaluation- chart flagged. ED physician notified. --15:48 Lady Dominguez R.N. 17:17 12/14/16. BP: 127/88. HR: 76. RR: 18. O2 saturation: 100%. Temp: 97.8 F. Pain level now 0/10. 16:30 12/14/16. HR: 64. RR: 18. O2 saturation: 99%. 16:00 12/14/16. HR: 65. RR: 17. O2 saturation: 97%. --17:21 Lady Dominguez R.N. DISPOSITION / DISCHARGE Departure time: 17:18. Condition at departure: improved and stable. No learning barriers present. Discharge instructions provided and reviewed with the patient. Patient verbalized understanding. Written instructions provided in Malay. The patient was discharged home. She left the Emergency Department ambulatory and via private vehicle. Patient driving. --17:18 Lady Dominguez R.N. 17:17 12/14/16. BP: 127/88. HR: 76. RR: 18. O2 saturation: 100%. Temp: 97.8 F. Pain level now 0/10. --17:18 Lady Dominguez R.N. Locked/Released at 12/14/2016 17:22 by Lady Dominguez R.N.
--- NOTE | 2016-12-14 17:22 | ED MED RECONCILIATION SUMMARY ---
Patient: JAMAL COLLINS Medication Reconciliation Report [facility] VisitID: [id number] [address] [place] [address] 51y, F Registration Date/Time: 12/14/2016 Weight: 70.7 kg Height/Length: 60 in. BMI: 29.0 ALLERGIES: Cipro, Fluocinolone, Lorazepam, Paxil, Sulfa Antibiotics The patient's Home Medications are listed below: STOP TAKING THE FOLLOWING MEDICATIONS: Magnesium Oral CONTINUE TAKING THE FOLLOWING MEDICATIONS: Co Q 10 Oral Fish Oil Oral Multivitamin Oral Vitamin c Oral Vitamin D-Vitamin K Oral Vitamin E Complete Oral The source(s) of the original Home Medication information: patient The following Medications were given to the patient in the Emergency Department: None. The following Medications were prescribed to the patient: BuSpar 7.5 mg: take 1 tablet every 12 hours. Dispense thirty (30). No refills. Substitution is permissible. -- Aakash Winters Dr.
--- NOTE | 2016-12-14 17:22 | ED MAR SUMMARY ---
..... Medication Administration Record [facility] [address] [place], [place] [id number] Patient: JAMAL COLLINS Visit ID: [id number] 51y, F Weight: 70.7 kg Height/Length: 61.5 in BMI: 29 ALLERGIES: Lorazepam, Paxil, Cipro, Fluocinolone, Sulfa Antibiotics
--- NOTE | 2016-12-14 17:22 | ED MED RECONCILIATION SUMMARY ---
Patient: JAMAL COLLINS Medication Reconciliation Report [facility] VisitID: [id number] [address] [place] [address] 51y, F Registration Date/Time: 12/14/2016 Weight: 70.7 kg Height/Length: 60 in. BMI: 29.0 ALLERGIES: Cipro, Fluocinolone, Lorazepam, Paxil, Sulfa Antibiotics The patient's Home Medications are listed below: STOP TAKING THE FOLLOWING MEDICATIONS: Magnesium Oral CONTINUE TAKING THE FOLLOWING MEDICATIONS: Co Q 10 Oral Fish Oil Oral Multivitamin Oral Vitamin c Oral Vitamin D-Vitamin K Oral Vitamin E Complete Oral The source(s) of the original Home Medication information: patient The following Medications were given to the patient in the Emergency Department: None. The following Medications were prescribed to the patient: BuSpar 7.5 mg: take 1 tablet every 12 hours. Dispense thirty (30). No refills. Substitution is permissible. -- Aakash Winters Dr.
--- NOTE | 2016-12-14 17:22 | ED DISCHARGE INSTRUCTIONS ---
Patient: JAMAL COLLINS General Instructions [facility] VisitID: [id number] [place] [address] 51y, F Registration Date/Time: 12/14/2016 Anxiety reaction with hyperventilation. INSTRUCTIONS Your Current Medications: STOP TAKING THE FOLLOWING MEDICATIONS: Magnesium Oral. CONTINUE TAKING THE FOLLOWING MEDICATIONS: Co Q 10 Oral. Fish Oil Oral. Multivitamin Oral. Vitamin c Oral. Vitamin D-Vitamin K Oral. Vitamin E Complete Oral. Prescription Medications: BuSpar 7.5 mg: take 1 tablet every 12 hours. Dispense thirty (30). No refills. Substitution is permissible. Follow-up: Follow up with your doctor in about four days. Call for an appointment. Blood pressure screening was not performed during this visit because the patient has an active diagnosis of hypertension. ADDITIONAL INFORMATION Stress Reaction Anxiety is the feeling we all get when we think something bad might happen. It is a normal response to stress and usually causes only a mild reaction. When anxiety becomes more severe, emotions may interfere with daily life. In some cases, you may not even be aware of what it is youre anxious about! During an anxiety reaction, you may feel like you are helpless, nervous, depressed or irritable. Your body may show signs of anxiety in many ways. You may experience dry mouth, shakiness, dizziness, weakness, trouble breathing, chest pressure, headache, nausea, diarrhea, tiredness, inability to sleep or sexual problems. Home Care: 1) Try to locate the sources of stress in your life. They may not be obvious! These may include: -- Daily hassles of life which pile up (traffic jams, missed appointments, car troubles, etc.) -- Major life changes, both good (new baby, job promotion) and bad (loss of job, loss of loved one) -- Overload: feeling that you have too many responsibilities and can't take care of all of them at once -- Feeling helpless, feeling that your problems are beyond what youre able to solve 2) Notice how your body reacts to stress. Learn to listen to your body signals. This will help you take action before the stress becomes severe. 3) When you can, do something about the source of your stress. (Avoid hassles, limit the amount of change that happens in your life at one time and take a break when you feel overloaded). 4) Unfortunately, many stressful situations cannot be avoided. It is necessary to learn HOW TO MANAGE STRESS better. There are many proven methods that will reduce your anxiety. These include simple things like exercise, good nutrition and adequate rest. Also, there are certain techniques that are helpful: relaxation and breathing exercises, visualization, biofeedback and meditation. For more information about this, consult your doctor or go to a local bookstore and review the many books and tapes available on this subject. Follow Up If you feel that your anxiety is not responding to self-help measures, contact your doctor or make an appointment with a counselor. Get Prompt Medical Attention if any of the following occur: -- Your symptoms get worse -- Chest pain or trouble breathing -- Severe headache not relieved by rest and mild pain reliever -- Rapid or irregular heartbeat, fainting You have been given the following additional information: Anxiety Reaction (Electronically signed by Aakash Winters Dr. 12/14/2016 17:09)
--- NOTE | 2016-12-14 17:22 | ED MAR SUMMARY ---
..... Medication Administration Record [facility] [address] [place], [place] [id number] Patient: JAMAL COLLINS Visit ID: [id number] 51y, F Weight: 70.7 kg Height/Length: 61.5 in BMI: 29 ALLERGIES: Lorazepam, Paxil, Cipro, Fluocinolone, Sulfa Antibiotics
== END 2016-12-14 17:18 | disposition home or self-care (01) ==
LOC: ED SRH 15:27
DX: F41.1 Generalized anxiety disorder (principal); R06.4 Hyperventilation; I10 Essential (primary) hypertension; K21.9 Gastro-esophageal reflux disease without esophagitis